=== PATIENT | male | born 1985 | race Caucasian/White ===

== ENCOUNTER 2024-06-30 10:57 | Outpatient (AMB) | payer BC, SELFPAY ==
--- NOTE | 2024-06-30 11:11 | MHC.PC.OV ---
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 Transferring care from Dr John ([facility]). Medical records have been requested and have not received. Revenue Agent Required: No Counseling Center Director: Present Accompanied by: Spouse Allergies No Known Allergies Allergy (Verified 06/30/24 12:54) Medication List - Last Reconciled 07/01/24 by JONATHAN Ramos hydroxyzine pamoate 25 mg PO BID PRN mupirocin 2% 1 appl topical BID nicotine (polacrilex) 4 mg buccal Q2H Tobacco use date assessed: 06/30/24 Dental Screening Dental Screen Date: 06/30/24 Did you have a dental visit in the last 12 months?: Yes Did you have a dental problem in the last 6 months where you did not have access to dental care?: No Was dental information given to patient?: Patient has dentist 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 John ([facility]) Last visit: Last PE: 2022 Specialist: thoracic appt 07/12 ,occupational therapy asst, lisandro, apprenticeship training representative Past medical history: ezcema, HLD, substance use hx, sober for 8 years Medications: hydroxyzine pamoate 25 mg BID in the ER for chest pain (reports that they thought this was anxiety related, they thought it was Family HX: Problem: Patient is a 39 year of who was presenting to establish care The patient reports that he has been having chest pains on and off Reports that on Friday and on Friday he went to [facility] for chest pain Reports that he was diaphoretic in his chest pain was going on for about 10 minutes Reports that his troponin, EKG and all other tests negative for cardiac-related issues Reports that he recently had surgery on bilateral feet, so that prompt them to do a D-dimer which was negative CT of the chest was done and noticed a cyst outside of the right mid-lung and sign of emphysema Reports that he was referred to a thoracic for to assess but he will still need a pulmonology referral to evaluate the potential emphysema Smoker: Reports that he was given nicotine gum and this has been helping him. He does not want to started smoking again due to the issues with his lungs. Reports that the nicotine gum is only 2 mg, he was wondering if he will get the 4 mg because he used to smoke a lot of cigarettes, along with vaping and smoking marijuana. Nicotine gum 4 mg ordered Dry lip: Reports that his labs get dry red and cracked. Reports that he had to see a Dermatology in the past for this who gave him prednisone. Mupirocin ointment was ordered Heartburn: Reports that he always had an issue would heartburn. Reports that it seems random. Reports that it does happen with spicy foods but sometimes it happens and sometime it does not. Reports coffee intake 1-2 cup/day but he has not drink any the last couple of days for concerns that this might be causing his chest pains as well Cyst. Report having cyst removed from cell wall from bilateral feet. Reports that it was infected with staph infection. Reports that he has stitches intact to both feet. And he has been seen by Podiatry for this. Anxiety: Patient reports anxiety. He reports that they told him in the hospital that his chest pain seemed to be anxiety related. There they started him on hydroxyzine 25 mg b.i.d. p.r.n. discussed with patient if he would like to speak to a a therapist, patient reports that he would like to start there. Counseling referral was placed [facility] Medical History (Updated 07/03/24 @ 06:04 by Shaggy Baum MD) Emphysema lung Nicotine dependence HLD (hyperlipidemia) Surgical History History of wisdom tooth extraction History of tonsillectomy History of foot surgery Family History Other Mental health disorder Substance use disorder Social History Housing: Condominium Alcohol intake: current Alcohol intake frequency: a few times a month Patient Tobacco Use Status: Former Tobacco user e-Cigarette/Vaping Use: Former Use Second Hand Smoke Exposure: Yes service: No Current occupational status: employed Current occupation: [employer] Cognitive needs: No Hearing needs: No Vision needs: Yes (Glasses) Questionnaire PHQ-9 Over the last 2 weeks, how often have you been bothered by any of the following problems? 1. Little interest or pleasure in doing things: not at all 2. Feeling down, depressed, or hopeless: several days 3. Trouble falling or staying asleep, or sleeping too much: several days 4. Feeling tired or having little energy: several days 5. Poor appetite or overeating: not at all 6. Feeling bad about yourself - or that you are a failure or have let yourself or your family down: several days 7. Trouble concentrating on things, such as reading the newspaper or watching television: not at all 8. Moving or speaking so slowly that other people could have noticed. Or the opposite - being so fidgety or restless that you have been moving around a lot more than usual: not at all 9. Thoughts that you would be better off or of hurting yourself in some way: not at all Total score: 4 Depression Screening Interpretation: Positive Depression Screening Follow-up: Existing condition and Follow-up Visit Requested Depression Screening Done: Yes 28332 - PHQ-9 Billing: Yes Source: Developed by Drs. Yanick Gudino, Tiff Allen, Toño Bobby and colleagues, with an educational kimmie from [employer]. Thrive Questionnaire Date Thrive assessed: 06/30/24 I am a: Patient What is your living situation today?: I have a steady place to live Within the past 12 months, did the food you bought not last and you didn't have the money to get more?: Never true Within the past 12 months, did you worry whether your food would run out before you got money to buy more?: Never true Do you have trouble paying for medicines?: No Do you have trouble getting transportation to medical appointments?: No Do you have trouble paying your heating and electricity bill?: No Do you have trouble taking care of your child, family member or friend?: No Do you have trouble with day-to-day activities such as bathing, preparing meals, shopping, managing finances, etc.?: No Are you currently unemployed and looking for a job?: No Are you interested in more education?: No Please select the resources that you would like help with: None Currently or been in a relationship where the following occur: No concerns reported THRIVE Score: 0 AUDIT C Alcohol Use Questionnaire (AUDIT-C) 1. How often do you have a drink containing alcohol?: Monthly or less 2. How many drinks containing alcohol do you have on a typical day when you are drinking?: 1 or 2 3. How often do you have six or more drinks on one occasion?: Less than monthly Total Score: 2 Score Reviewed/Action Taken: Yes NATALIA-7 AMB Questionnaire NATALIA-7 Date NATALIA - 7 assessed: 06/30/24 Feeling nervous, anxious, or on edge: 2 = More than half the days Not being able to stop or control worryin = Several days Worrying too much about different things: 1 = Several days Trouble relaxin = Several days Being so restless that it is hard to sit still: 1 = Several days Becoming easily annoyed or irritable: 1 = Several days Feeling afraid as if something awful might happen: 1 = Several days Total NATALIA-7 score (0-4 normal; 5-9 mild; 10-14 moderate; 15-21 severe): 8 Source: Developed by Drs. Yanick Gudino, Tiff Allen, Toño Bobby and colleagues, with an educational kimmie from [employer]. NATALIA-7 Assessment Billing NATALIA-7 Assessment Tool: NATALIA-7 Assessment 68790 Review of Systems Const Details: Denies chills, Denies fatigue, Denies fever(s), Denies headache(s) and Denies weakness HEENT Denies change in vision, Denies dizziness, Denies headache(s), Denies hearing loss, Denies nasal congestion, Denies sinus pain, Denies sinus pressure and Denies sore throat other: dry reddened, crack lips, Card recurrent chest pain, Denies lightheadedness, ocassional dyspnea (seems like it related to anxiety), intermittent palpitations Resp Denies cough, Denies dyspnea and Denies wheezing GI Denies abdominal pain, Denies melena, Denies hematochezia, Denies change in bowel habits, Denies dyspepsia and Denies nausea recurrent abdominal pain and heartburn Denies hematuria and Denies dysuria Musc Denies abnormal gait, Denies myalgias, Denies arthralgias, Denies numbness and Denies tingling bilateral feet infected cys-post surgerical removal (sutures intact) f/b Podiatry Skin/Breast Denies rash, Denies unusual bruising and Denies wounds Neuro Denies abnormal gait, Denies dizziness, Denies headache(s), Denies memory loss, Denies numbness, Denies Sensory deficit (Neuro), Denies tingling and Denies weakness Psych reports anxiety, Denies depression and Denies memory loss Endo Denies cold intolerance, Denies fatigue, Denies heat intolerance, Denies polydipsia and Denies polyuria Ollie/Lymph Denies easy bleeding and Denies easy bruising Aller/Immun Denies wheezing Physical exam (Primary Care) Vital Signs: Last Vital Signs Temp 97.1 F 06/30/24 11:12 Pulse 71 06/30/24 11:12 BP 120/70 06/30/24 11:12 Pulse Ox 99 06/30/24 11:12 Oxygen Delivery Method Room Air 06/30/24 11:12 BMI result Body Mass Index 24.0 Tobacco/Smoking Status: Tobacco use Status Tobacco use date assessed 06/30/24 06/30/24 11:23 Patient Tobacco Use Status Former Tobacco user 06/30/24 11:24 e-Cigarette/Vaping Use Former Use 06/30/24 11:24 PHQ-9: PHQ-9 Score PHQ-9: Total score 4 07/01/24 01:53 Depression Screening Interpretation: Positive Depression Screening Follow-up: Existing condition and Follow-up Visit Requested Thrive Assessment: Date of Thrive Assessment Date Thrive assessed 06/30/24 06/30/24 11:23 Currently or been in a relationship where the following occur: No concerns reported Const Other: General: no acute distress, well developed, alert and awake Nutritional Appearance: well nourished Orientation/consciousness: patient oriented x3 HENMT Head: Yes normocephalic and Yes atraumatic Ears: hearing grossly normal bilaterally and TM's normal bilaterally General nose exam: Normal external nose present and Normal nares present Mouth: Normal oral and palatal mucosa present and dry mucous membranes other: cracked, erythema lips Eyes Pupils: Equal, round and reactive pupils present and Pupil accommodation reflex normal EOM: EOMs intact bilaterally Neck Neck: Yes normal visual inspection, Yes no lymphadenopathy and Yes trachea midline Thyroid: Thyroid normal Carotids: no bruits Lymphatic: no lymphadenopathy noted Chest Chest palpation & inspection: normal inspection of the chest Resp Effort & Inspection: normal respiratory effort Auscultation: clear to auscultation bilaterally Cardio Rate: regular rate Rhythm: regular rhythm Heart sounds: S1 normal heart sound present, S2 normal heart sound present, no gallops, no murmurs and no rubs Bruits: no abdominal aortic bruits and no carotid bruits GI Palpation (GI): abdomen soft and nontender to palpation Auscultation: normal bowel sounds General: Yes no CVA tenderness Back/Spine/Pelvis Back: no CVA tenderness Cervical Spine: cervical ROM normal and No Cervical spine tenderness Thoracic/Lumbar Spine: thoraco-lumbar ROM normal, No pain with thoraco-lumbar ROM, No thoracic spinal tenderness and No lumbar spinal tenderness Skin General: warm and dry. Normal skin color. Normal skin turgor Lesions: no lesions Rashes: no rashes Trauma: no lacerations or abrasions Wounds: no wounds Nails: normal Neuro General: patient oriented x3, gait normal and CN's II-XI intact bilaterally Cranial nerves: Yes Equal, round and reactive pupils present Cognition (Neuro): normal cognition Gait exam (Neuro): Normal gait present Motor exam (neuro): 5/5 motor strength present throughout Sensory Exam: No Sensory deficit (Neuro) Deep tendon reflexes (DTR's): Right patellar reflex intensity grade: 2+ and Left patellar reflex intensity grade: 2+ Extrem General: Yes normal to inspection, No edema and No calf tenderness other: cyst moved from cell wall on bilateral feet, s/p staph infection,stitches on both feet intact Psych Appearance: grossly normal Affect: normal affect Attitude: cooperative Thought process: Normal thought process present Coding Level of Care Code New Pt Level 4 (12343) Diagnoses Chest pain, unspecified type R07.9 Chest pain type: unspecified Pulmonary emphysema, unspecified emphysema type J43.9 Emphysema type: unspecified Lung cyst J98.4 Bone cyst of both feet M85.571; M85.572 Lip dryness K13.0 Anxiety F41.9 Cigarette nicotine dependence with nicotine-induced disorder F17.219 Nicotine product type: cigarettes Substance use status: unspecified nicotine-induced disorder Additional Codes NATALIA-7 Assessment Billing - NATALIA-7 Assessment Tool: NATALIA-7 Assessment [id number] ([id number]) PHQ-9 - 56231 - PHQ-9 Billing: Yes ([id number]) Time Spent (min) 45 Assessment & Plan Assessment & Plan (1) Chest pain: Code(s): R07.9 - Chest pain, unspecified Category: Medical Qualifiers: Chest pain type: unspecified Qualified Code(s): R07.9 - Chest pain, unspecified Plan: The patient reports that he has been having chest pains on and off Reports that on Friday and on Friday he went to [facility] for chest pain Reports that he was diaphoretic in his chest pain was going on for about 10 minutes Reports that his troponin, EKG and all other tests negative for cardiac-related issues Cardiology referral placed (2) Emphysema lung: Code(s): J43.9 - Emphysema, unspecified Category: Medical Qualifiers: Emphysema type: unspecified Qualified Code(s): J43.9 - Emphysema, unspecified Plan: CT of the chest was done and noticed a cyst outside of the right mid-lung and sign of emphysema Reports that he was referred to a thoracic for to assess but he will still need a pulmonology referral to evaluate the potential emphysema (3) Lung cyst: Code(s): J98.4 - Other disorders of lung Category: Medical Plan: Follow up with thoracic as scheduled (4) Bone cyst of both feet: Code(s): 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 p.r.n. Denies HI/SI Counseling referral placed (7) Nicotine dependence: Code(s): F17.200 - Nicotine dependence, unspecified, uncomplicated Category: Medical Qualifiers: Nicotine product type: cigarettes Substance use status: unspecified nicotine-induced disorder Qualified Code(s): F17.219 - Nicotine dependence, cigarettes, with unspecified nicotine-induced disorders Plan: Reports that he was given nicotine gum and this has been helping him. He does not want to started smoking again due to the issues with his lungs. Reports that the nicotine gum is only 2 mg, he was wondering if he will get the 4 mg because he used to smoke a lot of cigarettes, along with vaping and smoking marijuana. Nicotine gum 4 mg ordered Plan To return in 2 weeks for his annual physical examination Orders: Orders Comprehensive [place]. Panel Fast 06/30/24 E78.5 - Hyperlipidemia, unspecified, Z00.00 - Encounter for general adult medical examination without abnormal findings Vitamin D 25-OH Total 06/30/24 E78.5 - Hyperlipidemia, unspecified, Z00.00 - Encounter for general adult medical examination without abnormal findings Lipid Panel 06/30/24 E78.5 - Hyperlipidemia, unspecified, Z00.00 - Encounter for general adult medical examination without abnormal findings Complete Blood Count Auto Diff 06/30/24 E78.5 - Hyperlipidemia, unspecified, Z00.00 - Encounter for general adult medical examination without abnormal findings TSH reflex Free T4 06/30/24 E78.5 - Hyperlipidemia, unspecified, Z00.00 - Encounter for general adult medical examination without abnormal findings UA CC w/rflx Micro + Cult 06/30/24 E78.5 - Hyperlipidemia, unspecified, Z00.00 - Encounter for general adult medical examination without abnormal findings Glucose Fasting 06/30/24 E78.5 - Hyperlipidemia, unspecified, Z00.00 - Encounter for general adult medical examination without abnormal findings Referrals Pulmonology Referral J43.9 - Emphysema, unspecified Cardiology Referral R07.9 - Chest pain, unspecified Counseling Referral F41.9 - Anxiety disorder, unspecified Medications: New mupirocin 2% applied to lips 1 appl topical BID 22 grams 0RF nicotine (polacrilex) 4 mg buccal Q2H 100 ea 3RF
[2024-06-30 11:12] VITALS: BP 120/70; PULSE 71; TEMP 36.2; O2SAT 99; BMI 24.0
--- OUTSIDE RECORDS SUMMARY | 2024-06-30 12:47 | XMS_ITS | Clinical Summary ---
Author Organization [facility] Address [address] [place] [address] Phone Care Team Providers Care Grill Cook Name Role Phone Physician, Pcp Unknown Primary Care Provider Kaylin vailable Allergies Active Allergy Reactions Criticality Noted Date Comments Nickel 05/18/2020 Other Reaction(s): Rash/Dermatitis silver Medications lactulose (CHRONULAC) solution Take 30 mL by mouth 2 times daily. 3 Active psyllium (Daily Fiber, psyllium-aspart ,) 3.4 gram packet Take 1 Packet by mouth daily. 3 Active polyethylene glycol (MIRALAX) 17 gram packet Take 1 Packet by mouth daily. 3 Active simethicone (MYLICON) 125 mg chewable tablet Take 1 Tablet by mouth every 6 hours as needed for Flatulence. 3 Active polyethylene glycol (MIRALAX) 17 gram packet Take 1 Packet by mouth daily as needed (constipation) . 3 Active hydrOXYzine pamoate (VISTARIL) 25 mg capsule Take 1 capsule (25 mg total) by mouth every 6 (six) hours if needed for anxiety. 20 capsule 5 Active nicotine polacrilex (NICORETTE) [address] 1 each (2 mg total) into mouth between cheek and gum every 2 (two) hours if needed for smoking cessation for up to 4 days. 48 each 5 07/02/19 25 Active Active Problems Problem Noted Date Diagnosed Date Hyperlipidemia LDL goal <160 05/18/2024 Erectile dysfunction 09/24/2022 Herpes simplex type 1 infection 08/05/2018 Eczema 07/14/2018 History of drug abuse in remission 07/14/2018 Overview (05/18/2024): Clean & sober since February 2016. 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 Encounters Date Type Department Care Team Description 06/28/2024 1:23 PM EST - 06/28/2024 7:13 PM [facility] Emergency [address] [place] [phone] Chest pain, unspecified type (Primary Dx) Discharge Disposition: Home or Self Care 06/26/2024 7:29 PM EST - 06/26/2024 11:08 PM [facility] Emergency [address] [place] [phone] Discharge Disposition: Home or Self Care from Last 3 Months Immunizations Name Administration Dates Next Due Hep B, Unspecified 10/10/2011 Tdap Tetanus diptheria acell ular pertussis (Boostrix; Adacel) 7yo and older 10/23/2015 Surgical History Surgery Date Site/Laterality Comments TONSILLECTOMY 2007 Bilateral PROCEDURE: HISTORICAL TONSILLECTOMY WISDOM TOOTH EXTRACTION 1999 Bilateral PROCEDURE: HISTORICAL WISDOM TEETH EXTRACTION Medical History Medical History Date Comments Eczema 07/14/2018 DX:Eczema Herpes simplex type 1 infection 08/05/2018 DX:Herpes simplex type 1 infection History of drug abuse in rem ission ([facility]) 07/14/2018 DX:History of drug abuse in remission ([facility]); COMMENT: Clean & sober since February 2016. 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 Testing was negative for underlying seizure disorder Tobacco use 08/05/2018 DX:Tobacco use Hyperlipidemia LDL goal <160 DX: Hyperlipidemia LDL goal <160 Abdominal pain DX:Abdominal dilia n Constipation DX:Constipation Straining with stools DX:Straini ng with stools Family History Medical History Relation Name Comments Hypertension Father eczema No Known Problems Maternal Grandfather No Known Problems Maternal Grandmother Asthma Mother No Known Problems Paternal Grandfather Alcohol abuse Paternal Grandmother No Known Problems Sister Relation Name Status Comments Father Alive Maternal Grandfather Maternal Grandmother Alive Mother Alive Paternal Grandfather Paternal Grandmother Sister Alive Social History Tobacco Use Types Packs/Day Years Used Date Smoking Tobacco: Every Day Cigarettes 0.8 25.1 Started: 05/19/1999 Smokeless Tobacco: Never Alcohol Use Standard Drinks/Week Comments No 0 (1 standard drink = 0.6 oz pur e alcohol) Sex and Gender Information Value Date Recorded Sex Assigned at Male 06/28/2024 3:40 PM EST Legal Sex Male 3:18 AM EST Gender Identity Male 06/28/2024 3:40 PM EST Sexual Orientation Straight 06/28/2024 3: 40 PM EST Obstetrics History Last Filed Vital Signs Vital Sign Reading Time Taken Comments Blood Pressure 139/84 06/28/2024 6:07 PM EST Pulse 89 06/28/2024 6:50 PM EST Temperature 37.3 ??C (99.1 ??F) 06/28/2024 4:04 PM ES T Respiratory Rate 16 06/28/2024 6:07 PM EST Oxygen Saturation 100% 06/28/2024 6:50 PM EST Inhaled Oxygen Concentration - - Weight 83.9 kg (185 lb) 06/28/2024 12:31 PM EST Height 180.3 cm (5' 11 ) 06/28/2024 12:31 PM EST Body Mass Index 25.8 06/28/2024 12:31 PM EST Plan of Treatment Upcoming Encounters Date Type Department Care Team (Late st Contact Info) Description 07/12/2024 1:30 PM EST Consult Thoracic Surgery - [place] [address] [facility] [address] [place] [phone] Estrella Galvan MD [address] [facility] [address] [place] [phone] Health Maintenance Due Date Last Done Comments Pneumococcal Vaccine: Pediat rics (0 to 5 Years) and At-Risk Patients (6 to 64 Years) (1 of 2 - PCV) 02/21/2004 Hepatitis B Vaccines (2 of 3 - 19+ 3-dose series) 11/07/2011 10/10/2011 DTaP,Tdap,and Td Vaccines (2 - Td or Tdap) 11/20/2015 10/23/2015 Depression Screening 04/21/2022 Social Influencers of Health Screening 04/21/2022 COVID-19 Vaccine (1 - 2023-2 5 season) 2024 Influenza Vaccine (#1) 2024 Cholesterol Screening (Lipid Panel) 09/21/2027 09/20/2022 HIV Screening Completed 09/20/2022 Hepatitis C Screening Completed 09/20/2022 HIB Vaccines Aged Out No longer eligi ble based on patient's age to complete this topic HPV Vaccines Aged Out No longer eligi ble based on patient's age to complete this topic Hepatitis A Vaccines Aged Out No long er eligible based on patient's age to complete this topic IPV Vaccines Aged Out No longer eligi ble based on patient's age to complete this topic MMR Vaccines Aged Out No longer eligi ble based on patient's age to complete this topic Meningococcal ACWY Vaccine Aged Out N o longer eligible based on patient's age to complete this topic Meningococcal B Vacine Aged Out No lo nger eligible based on patient's age to complete this topic RSV Immunization Patients Un viktoria 20 months Aged Out No longer eligible b ased on patient's age to complete this topic Varicella Vaccines Aged Out No longer eligible based on patient's age to complete this topic Procedures Procedure Name Priority Date/Time Associated Diagnosis Comments ECG ANNOTATED 06/30/2024 ECG ANNOTATED 06/30/2024 CT ANGIO CHEST WO AND/OR W CONTRAST STAT 06/28/2024 5:45 PM EST Chest pain, unspecified type TROPONIN I HIGH SENSITIVITY STAT 06/28/2024 2:43 PM EST ECG 12-LEAD STAT 06/28/2024 2:40 PM EST CBC WITH AUTO DIFFERENTIAL STAT 06/28/2024 1:36 PM EST B-TYPE NATRIURETIC PEPTIDE STAT 06/28/2024 1:36 PM EST MAGNESIUM STAT 06/28/2024 1:36 PM EST LIPASE STAT 06/28/2024 1:36 PM EST COMPREHENSIVE METABOLIC PANEL STAT 06/28/2024 1:36 PM EST CBC AND DIFFERENTIAL STAT 06/28/2024 1:36 PM EST TROPONIN I HIGH SENSITIVITY STAT 06/28/2024 1:36 PM EST ECG 12-LEAD STAT 06/28/2024 12:27 PM EST TROPONIN I HIGH SENSITIVITY STAT 06/26/2024 9:43 PM EST ECG 12-LEAD STAT 06/26/2024 9:36 PM EST XR CHEST 2 VIEWS STAT 06/26/2024 8:00 PM EST CBC WITH AUTO DIFFERENTIAL STAT 06/26/2024 7:56 PM EST D-DIMER STAT 06/26/2024 7:56 PM EST B-TYPE NATRIURETIC PEPTIDE STAT 06/26/2024 7:56 PM EST MAGNESIUM STAT 06/26/2024 7:56 PM EST LIPASE STAT 06/26/2024 7:56 PM EST COMPREHENSIVE METABOLIC PANEL STAT 06/26/2024 7:56 PM EST CBC AND DIFFERENTIAL STAT 06/26/2024 7:56 PM EST TROPONIN I HIGH SENSITIVITY STAT 06/26/2024 7:56 PM EST ECG 12-LEAD STAT 06/26/2024 7:45 PM EST HM HEPATITIS C SCREENING Routine 09/20/2022 HM HIV SCREENING Routine 09/20/2022 LIPID PANEL Routine 09/20/2022 from Last 3 Months or Most Recently Relevant to Health Maintenance Results * ECG-Annotated (06/30/2024) Only the most recent of2 resultswithin the time period is included. us Provider Onbase MD ECG ORDERABLES Final Result * CT Angio Chest wo and/or w Contrast (06/28/2024 5:45 PM EST) Anatomical Region Laterality Modality Body Computed Tomogra phy 06/28/2024 6:21 PM EST Impressions 06/28/2024 6:21 PM EST Impression: Normal CTA angiography of the aorta. NEGATIVE for pulmonary embolus. There is paraseptal pulmonary emphysema. No infiltrates or abnormal alveolar opacities. No pneumothorax. This document has been electronically signed by: Pepito Srivastava MD on 06/28/2024 18:21:17 Narrative 06/28/2024 6:21 PM EST INDICATION: chest pain, dyspnea, elevated ddimer CTA angiography chest using bolus contrast injection. 3-D postprocessing Comparison: None Findings: Normal thoracic aorta and branch vessels Heart size is normal. RV/LV ratio normal There is a 2.4 cm cyst in the pleural surface of the medial right lung and also paraseptal areas of emphysema are present in the medial aspect of the lingula. No consolidation or abnormal alveolar opacities. Below the diaphragm the visualized portions of liver and spleen are unremarkable. No acute fractures Procedure Note Pepito Srivastava MD - 06/28/2024 INDICATION: chest pain, dyspnea, elevated ddimer CTA angiography chest using bolus contrast injection. 3-D postprocessing Comparison: None Findings: Normal thoracic aorta and branch vessels Heart size is normal. RV/LV ratio normal There is a 2.4 cm cyst in the pleural surface of the medial right lungand also paraseptal areas of emphysema are present in the medial aspect ofthe lingula. No consolidation or abnormal alveolar opacities. Below the diaphragm the visualized portions of liver and spleen are unremarkable. No acute fractures IMPRESSION: Impression: Normal CTA angiography of the aorta. NEGATIVE for pulmonary embolus. There is paraseptal pulmonary emphysema. No infiltrates or abnormal alveolar opacities. No pneumothorax. This document has been electronically signed by: Pepito Srivastava MD on 06/28/2024 18:21:17 us Jacques PALMA IMG CT PROCEDURES Final Resu lt * Troponin I high sensitivity (06/28/2024 2:43 PM EST) Only the most recent of4 resultswithin the time period is included. [facility] High Sensitivity Troponin I 4 <=79 ng/L LAB CHEMISTRY METHOD 06/28/2024 3:53 PM EST [facility] Blood Venous blood specimen / Unknown Venipuncture / Unknown 06/28/2024 2:43 PM EST 06/28/2024 3:10 PM EST Narrative [facility] - 06/28/2024 3:53 PM EST High levels of biotin in samples may falsely decrease hsTroponin values. ??Use caution when interpreting hsTroponin results in patients taking biotin who exhibit renal impairment (eGFR <60) or in patients taking more than 20 mg/day of biotin. Chu Small MD LAB BLOOD ORDERABLES Chiquita l Result [facility] [address] [place] [address], * ECG 12 lead (06/28/2024 2:40 PM EST) Only the most recent of4 resultswithin the time period is included. [facility] Ventricular Rate ECG 63 BPM GEMUSE Atrial Rate 63 BPM GEMUSE P-R Interval 134 ms GEMUSE QRS Duration 94 ms GEMUSE Q-T Interval 408 ms GEMUSE QTc 417 ms GEMUSE P Wave [place] 50 degrees GEMUSE R [place] 77 degrees GEMUSE T [place] 50 degrees GEMUSE ECG Interpretation Normal sinus rhythm Normal ECG When compared with ECG of 28-JUN-2024 12:27, (unconfirmed) No significant change was found Confirmed by Diogo HAYWOOD JAMES ([id number]) on 06/28/2024 6:39:11 PM GEMUSE 06/28/2024 2:40 PM EST 06/28/2024 6:39 PM EST us Chu Small MD ECG ORDERABLES Final Res ult GEMUSE * (ABNORMAL) CBC auto differential (06/28/2024 1:36 PM EST) Only the most recent of2 resultswithin the time period is included. WBC 8.3 4.8 - 10.8 K/mcL LAB HEMETOLOGY METHOD 06/28/2024 2:41 PM [facility] RBC 5.00 4.50 - 5.50 M/mcL LAB HEMETOLOGY METHOD 06/28/2024 2:41 PM [facility] Hemoglobin 15.6 13.5 - 17.5 g/dL LAB HEMETOLOGY METHOD 06/28/2024 2:41 PM [facility] Hematocrit 45.4 42.0 - 54.0 % LAB HEMETOLOGY METHOD 06/28/2024 2:41 PM [facility] MCV 90.1 79.0 - 98.0 FL LAB HEMETOLOGY METHOD 06/28/2024 2:41 PM [facility] MCH 31.0 27.0 - 32.0 pcg LAB HEMETOLOGY METHOD 06/28/2024 2:41 PM [facility] MCHC 34.4 32.0 - 37.0 g/dL LAB HEMETOLOGY METHOD 06/28/2024 2:41 PM [facility] RDW 12.3 11.0 - 15.0 % LAB HEMETOLOGY METHOD 06/28/2024 2:41 PM [facility] Platelets 235 130 - 400 K/mcL LAB HEMETOLOGY METHOD 06/28/2024 2:41 PM [facility] MPV 11.5(H) 7.0 - 11.0 FL LAB HEMETOLOGY METHOD 06/28/2024 2:41 PM [facility] NRBC 0.0 <1.0 % LAB HEMETOLOGY METHOD 06/28/2024 2:41 PM [facility] NRBC Absolute 0.00 <0.10 K/mcL LAB HEMETOLOGY METHOD 06/28/2024 2:41 PM [facility] Neutrophils Relative 75.6 % LAB HEMETOLOGY METHOD 06/28/2024 2:41 PM [facility] Lymphocytes Relative 17.4 % LAB HEMETOLOGY METHOD 06/28/2024 2:41 PM [facility] Monocytes Relative 5.6 % LAB HEMETOLOGY METHOD 06/28/2024 2:41 PM [facility] Eosinophils Relative 0.4 % LAB HEMETOLOGY METHOD 06/28/2024 2:41 PM [facility] Basophils Relative 0.6 % LAB HEMETOLOGY METHOD 06/28/2024 2:41 PM [facility] Immature Granulocytes Relative 0.4 % LAB HEMETOLOGY METHOD 06/28/2024 2:41 PM [facility] Neutrophils Absolute 6.26 1.50 - 7.00 K/mcL LAB HEMETOLOGY METHOD 06/28/2024 2:41 PM [facility] Lymphocytes Absolute 1.44 1.00 - 5.00 K/mcL LAB HEMETOLOGY METHOD 06/28/2024 2:41 PM [facility] Monocytes Absolute 0.46 0.20 - 1.00 K/mcL LAB HEMETOLOGY METHOD 06/28/2024 2:41 PM [facility] Eosinophils Absolute 0.03 0.00 - 0.50 K/mcL LAB HEMETOLOGY METHOD 06/28/2024 2:41 PM [facility] Basophils Absolute 0.05 0.00 - 0.20 K/mcL LAB HEMETOLOGY METHOD 06/28/2024 2:41 PM EST [facility] Immature Granulocytes Absolute 0.03 0.00 - 0.03 K/mcL LAB HEMETOLOGY METHOD 06/28/2024 2:41 PM EST [facility] Blood Venous blood specimen / Unknown Venipuncture / Unknown 06/28/2024 1:36 PM EST 06/28/2024 2:04 PM EST us Chu Small MD LAB BLOOD ORDERABLES Chiquita l Result Performing Organization Address [facility] Co de Phone Number [facility] [address] [place] [address], [place] [phone] * B-type natriuretic peptide (06/28/2024 1:36 PM EST) Only the most recent of2 resultswithin the time period is included. BNP <2 <=100 pcg/mL LAB CHEMISTRY METHOD 06/28/2024 2:50 PM EST [facility] Blood Venous blood specimen / Unknown Venipuncture / Unknown 06/28/2024 1:36 PM EST 06/28/2024 2:04 PM EST Chu Small MD LAB BLOOD ORDERABLES Chiquita l Result Performing Organization Address [facility] Co de Phone Number [facility] [address] [place] [address], [place] [phone] * Magnesium (06/28/2024 1:36 PM EST) Only the most recent of2 resultswithin the time period is included. Magnesium 2.2 1.9 - 2.6 mg/dL LAB CHEMISTRY METHOD 06/28/2024 2:58 PM EST [facility] Comment:Hemolysis present Blood Venous blood specimen / Unknown Venipuncture / Unknown 06/28/2024 1:36 PM EST 06/28/2024 2:04 PM EST us Chu Small MD LAB BLOOD ORDERABLES Chiquita l Result Performing Organization Address [facility]/ZIP Co de Phone Number [facility] [address] [place] [address], [place] [phone] * Lipase (06/28/2024 1:36 PM EST) Only the most recent of2 resultswithin the time period is included. Pathologist [facility] [place] Lipase 41 13 - 75 unit/L LAB CHEMISTRY METHOD 06/28/2024 2:58 PM [facility] Blood Venous blood specimen / Unknown Venipuncture / Unknown 06/28/2024 1:36 PM EST 06/28/2024 2:04 PM EST us Chu Small MD LAB BLOOD ORDERABLES Chiquita l Result Performing Organization Address [facility] de Phone Number [facility] [address] [place] [address], [place] [phone] * (ABNORMAL) Comprehensive metabolic panel (06/28/2024 1:36 PM EST) Only the most recent of2 resultswithin the time period is included. Pathologist [facility] [place] Sodium 136 133 - 145 mmol/L LAB CHEMISTRY METHOD 06/28/2024 2:58 PM [facility] Potassium 4.2 3.5 - 5.5 mmol/L LAB CHEMISTRY METHOD 06/28/2024 2:58 PM [facility] Comment:Hemolysis present Chloride 102 96 - 110 mmol/L LAB CHEMISTRY METHOD 06/28/2024 2:58 PM [facility] CO2 25 21 - 32 mmol/L LAB CHEMISTRY METHOD 06/28/2024 2:58 PM [facility] Anion Gap 9 3 - 11 LAB CHEMISTRY METHOD 06/28/2024 2:58 PM [facility] Glucose 85 70 - 100 mg/dL LAB CHEMISTRY METHOD 06/28/2024 2:58 PM [facility] BUN 12 5 - 25 mg/dL LAB CHEMISTRY METHOD 06/28/2024 2:58 PM [facility] Creatinine 0.94 0.70 - 1.30 mg/dL LAB CHEMISTRY METHOD 06/28/2024 2:58 PM [facility] eGFR 106 >=60 mL/min/1. 73m2 LAB CHEMISTRY METHOD 06/28/2024 2:58 PM [facility] Comment:Calculation based on the??Chronic Kidney Disease Epidemiology Collaboration (CKD-EPI) equation refit??without adjustment for race. BUN/Creatinine Ratio 12.8 LAB CHEMISTRY METHOD 06/28/2024 2:58 PM [facility] Calcium 10.3 8.5 - 10.5 mg/dL LAB CHEMISTRY METHOD 06/28/2024 2:58 PM [facility] AST (SGOT) 25 10 - 42 unit/L LAB CHEMISTRY METHOD 06/28/2024 2:58 PM [facility] Comment:Hemolysis present ALT (SGPT) 41 10 - 60 unit/L LAB CHEMISTRY METHOD 06/28/2024 2:58 PM [facility] Alkaline Phosphatase 86 42 - 121 unit/L LAB CHEMISTRY METHOD 06/28/2024 2:58 PM [facility] Total Protein 8.3(H) 6.0 - 8.0 g/dL LAB CHEMISTRY METHOD 06/28/2024 2:58 PM [facility] Albumin 4.9 3.2 - 5.0 g/dL LAB CHEMISTRY METHOD 06/28/2024 2:58 PM [facility] Total Bilirubin 0.8 0.0 - 1.4 mg/dL LAB CHEMISTRY METHOD 06/28/2024 2:58 PM [facility] Blood Venous blood specimen / Unknown Venipuncture / Unknown 06/28/2024 1:36 PM EST 06/28/2024 2:04 PM EST us Chu Small MD LAB BLOOD ORDERABLES Chiquita l Result [facility] [address] [place] [address], [place] [phone] * XR Chest 2 Views (06/26/2024 8:00 PM EST) Anatomical Region Laterality Modality Body Radiographic Jeannette ging 06/27/2024 7:17 AM EST Impressions 06/27/2024 7:18 AM EST Hyperinflated lungs without acute process. No change from last exam 07/28/2022 -------- FINAL REPORT -------- Dictated By: Hemant Chan Dictated Date: 06/27/2024 07:17 ET Assigned Physician: Hemant Chan Reviewed and Electronically Signed By: Hemant Chan Signed Date: 06/27/2024 07:18 ET Workstation ID: [id number] Transcribed By: Self Edit Transcribed Date: 06/27/2024 07:17 ET Narrative 06/27/2024 7:18 AM EST Examination: Chest 2 views. CLINICAL INDICATION: Chest pain. COMPARISON: Chest 07/28/2022. FINDINGS: The lungs are slightly hyperinflated but clear of acute pneumonic process. The heart size and vascularity is normal. No gross bony abnormality seen. Procedure Note Hemant Chan MD - 06/27/2024 Examination: Chest 2 views. CLINICAL INDICATION: Chest pain. COMPARISON: Chest 07/28/2022. FINDINGS: The lungs are slightly hyperinflated but clear of acutepneumonic process. The heart size and vascularity is normal. No gross bonyabnormality seen. IMPRESSION: Hyperinflated lungs without acute process. No change from last exam07/28/2022 -------- FINAL REPORT -------- Dictated By: Hemant Chan Dictated Date: 06/27/2024 07:17 ET Assigned Physician: Hemant Chan Reviewed and Electronically Signed By: Hemant Chan Signed Date: 06/27/2024 07:18 ET Workstation ID: [id number] Transcribed By: Self Edit Transcribed Date: 06/27/2024 07:17 ET Mariam Lamont Jd Woo DO IMG XR PROCEDURES Final R esult * (ABNORMAL) D-dimer, quantitative (06/26/2024 7:56 PM EST) [facility] D-Dimer, Quant (D-DU) 252(H) <=230 ng/mL DDU LAB COAGULATION METHOD 06/26/2024 8:53 PM EST [facility] Blood Venous blood specimen / Unknown Venipuncture / Unknown 06/26/2024 7:56 PM EST 06/26/2024 8:30 PM EST Narrative [facility] - 06/26/2024 8:53 PM EST D-Dimer <230 ng/mL (D-Dimer units) is the threshold for exclusion of DVT/PE. D-Dimer may be elevated in: Critically ill, severely infected, trauma patients, DIC, acute CVA, acute RI, unstable angina, AF, old age, , and smoking. D-Dimer may be decreased with: Initiation of heparin therapy and oral anticoagulants. Mariam Woo DO LAB BLOOD ORDERABLES Chiquita l Result [facility] [address] [place] [address], [place] [phone] * HIV Screening (09/20/2022) [facility] HIV Screening abstracted Historical Provider HEALTH MAINTENANCE Final Result * Hepatitis C Screening (09/20/2022) [facility] Hepatitis C Screening abstracted Historical Provider HEALTH MAINTENANCE Final Result * (ABNORMAL) Lipid panel (09/20/2022) [facility] LDL/HDL Ratio 4 0 - 4 Triglycerides 95 0 - 150 mg/dL Cholesterol 248(A) 0 - 200 mg/dL HDL 57 >=40 mg/dL LDL Cholesterol 172(A) 0 - 100 mg/dL Blood Venous blood specimen / Unknown Historical Provider LAB BLOOD ORDERABLES Chiquita l Result from Last 3 Months or Most Recently Relevant to Health Maintenance Insurance [facility]) Care Teams Grill Cook Relationship Specialty Start Date End Date Physician, Pcp Unknown PCP - General 06/28/24
--- OUTSIDE RECORDS SUMMARY | 2024-06-30 12:47 | XMS_ITS | Encounter Summary ---
Author Organization [facility] Address [address] [place] [address] Care Team Providers Care Material Carrier Name Role Phone Unavailable Primary Care Provider Unavailabl e Reason for Visit * Reason Comments Chest Pain X2 MONTHS Encounter Details Date Type Department Care Team (Late st Contact Info) Description 06/26/2024 7:29 PM EST - 06/26/2024 11:08 PM EST Emergency [facility] Emergency [address] [place] [address] Discharge Disposition: Home or Self Care Social History Tobacco Use Types Packs/Day Years [...] Orientation Straight 06/28/2024 3: 40 PM EST documented as of this encounter Last Filed Vital Signs Vital Sign Reading Time Taken Comments Blood Pressure 136/83 06/26/2024 7:48 PM EST Pulse 71 06/26/2024 7:48 PM EST Temperature 37.2 ??C (99 ??F) 06/26/2024 7:48 PM EST Respiratory Rate 18 06/26/2024 7:48 PM EST Oxygen Saturation 99% 06/26/2024 7:48 PM EST Inhaled Oxygen Concentration - - Weight 83.9 kg (185 lb) 06/26/2024 7:48 PM EST Height 180.3 cm (5' 11 ) 06/26/2024 7:48 PM EST Body Mass Index 25.8 06/26/2024 7:48 PM EST documented in this encounter Medications at Time of Discharge lactulose (CHRONULAC) solution Take 30 mL by mouth 2 times daily. 03/04/2023 polyethylene glycol (MIRALAX) 17 gram packet Take 1 Packet by mouth daily. 03/04/2023 polyethylene glycol (MIRALAX) 17 gram packet Take 1 Packet by mouth daily as needed (constipation ). 07/29/2022 psyllium (Daily Fiber, psyllium-aspart,) 3.4 gram packet Take 1 Packet by mouth daily. 03/04/2023 simethicone (MYLICON) 125 mg chewable tablet Take 1 Tablet by mouth every 6 hours as needed for Flatulence. 03/04/2023 documented as of this encounter Discharge Disposition Disposition Code Departure Means Destination Home or Self Care documented in this encounter Progress Notes * Karyn Grey RN - 06/26/2024 7:45 PM EST Pt to ED for Chest pain. Had cyst in foot removed surgically 2 weeks ago. Since having the procedure pt has been having intermittent chest pain. When having episodes of chest pain pt becomes diaphoretic and lightheaded. Pt on HLD meds years ago but has since stopped taking them. documented in this encounter Plan of Treatment Upcoming Encounters Date Type Department Care Team (Late st Contact Info) Description 07/12/2024 1:30 PM EST Consult Thoracic Surgery - [place] [address] [place] [id number] Estrella Galvan MD [address] [place] [address] [place] [id number] documented as of this encounter Procedures Procedure Name Priority Date/Time Associated Diagnosis Comments TROPONIN I HIGH SENSITIVITY STAT 06/26/2024 9:43 PM EST ECG 12-LEAD STAT 06/26/2024 9:36 PM EST XR CHEST 2 VIEWS STAT 06/26/2024 8:00 PM EST TROPONIN I HIGH SENSITIVITY STAT 06/26/2024 7:56 PM EST CBC WITH AUTO DIFFERENTIAL STAT 06/26/2024 7:56 PM EST D-DIMER STAT 06/26/2024 7:56 PM EST CBC AND DIFFERENTIAL STAT 06/26/2024 7:56 PM EST B-TYPE NATRIURETIC PEPTIDE STAT 06/26/2024 7:56 PM EST MAGNESIUM STAT 06/26/2024 7:56 PM EST LIPASE STAT 06/26/2024 7:56 PM EST COMPREHENSIVE METABOLIC PANEL STAT 06/26/2024 7:56 PM EST ECG 12-LEAD STAT 06/26/2024 7:45 PM EST documented in this encounter Results * Troponin I high sensitivity (06/26/2024 9:43 PM EST) High Sensitivity Troponin I 4 <=79 ng/L LAB CHEMISTRY METHOD 06/26/2024 10:14 PM EST [facility] Blood Venous blood specimen / Unknown Venipuncture / Unknown 06/26/2024 9:43 PM EST 06/26/2024 9:48 PM EST Narrative [facility] - 06/26/2024 10:14 PM EST High levels of biotin in samples may falsely decrease hsTroponin values. ??Use caution when interpreting hsTroponin results in patients taking biotin who exhibit renal impairment (eGFR <60) or in patients taking more than 20 mg/day of biotin. Mariam Woo DO LAB BLOOD ORDERABLES Chiquita l Result Performing Organization Address City/State/[facility] de Phone Number [facility] [place] [facility] [address] [place] [address], [place] [phone] * ECG 12 lead (06/26/2024 9:36 PM EST) Ventricular Rate ECG 62 BPM GEMUSE Atrial Rate 62 BPM GEMUSE P-R Interval 132 ms GEMUSE QRS Duration 98 ms GEMUSE Q-T Interval 410 ms GEMUSE QTc 416 ms GEMUSE P Wave Sandstone 63 degrees GEMUSE R [place] 83 degrees GEMUSE T [place]stone 63 degrees GEMUSE ECG Interpretation Normal sinus rhythm Normal ECG When compared with ECG of 26-JUN-2024 19:45, No significant change was found Confirmed by MARGARITA MEZA ([id number]) on 06/27/2024 7:38:00 AM GEMUSE 06/26/2024 9:36 PM EST 06/27/2024 7:38 AM EST Rigo Lamont Miles Woo DO ECG ORDERABLES Final Res ult Performing Organization Address [facility] de Phone Number GEMUSE * XR Chest 2 Views (06/26/2024 8:00 [...] Signed Date: 06/27/2024 07:18 ET Workstation ID: [id number] Transcribed By: Self Edit Transcribed Date: 06/27/2024 [...] Signed Date: 06/27/2024 07:18 ET Workstation ID: [id number] Transcribed By: Self Edit Transcribed Date: 06/27/2024 07:17 ET us [facility] Lamont Woo DO IMG XR PROCEDURES Final R esult * CBC auto differential (06/26/2024 7:56 PM EST) WBC 9.9 4.8 - 10.8 K/mcL LAB HEMETOLOGY METHOD 06/26/2024 8:43 PM [facility] RBC 4.90 4.50 - 5.50 M/mcL LAB HEMETOLOGY METHOD 06/26/2024 8:43 PM [facility] Hemoglobin 15.0 13.5 - 17.5 g/dL LAB HEMETOLOGY METHOD 06/26/2024 8:43 PM [facility] Hematocrit 44.8 42.0 - 54.0 % LAB HEMETOLOGY METHOD 06/26/2024 8:43 PM [facility] MCV 92.0 79.0 - 98.0 FL LAB HEMETOLOGY METHOD 06/26/2024 8:43 PM [facility] MCH 30.8 27.0 - 32.0 pcg LAB HEMETOLOGY METHOD 06/26/2024 8:43 PM [facility] MCHC 33.5 32.0 - 37.0 g/dL LAB HEMETOLOGY METHOD 06/26/2024 8:43 PM [facility] RDW 12.4 11.0 - 15.0 % LAB HEMETOLOGY METHOD 06/26/2024 8:43 PM [facility] Platelets 269 130 - 400 K/mcL LAB HEMETOLOGY METHOD 06/26/2024 8:43 PM [facility] MPV 10.8 7.0 - 11.0 FL LAB HEMETOLOGY METHOD 06/26/2024 8:43 PM [facility] NRBC 0.0 <1.0 % LAB HEMETOLOGY METHOD 06/26/2024 8:43 PM [facility] NRBC Absolute 0.00 <0.10 K/mcL LAB HEMETOLOGY METHOD 06/26/2024 8:43 PM [facility] Neutrophils Relative 64.4 % LAB HEMETOLOGY METHOD 06/26/2024 8:43 PM [facility] Lymphocytes Relative 26.7 % LAB HEMETOLOGY METHOD 06/26/2024 8:43 PM [facility] Monocytes Relative 6.3 % LAB HEMETOLOGY METHOD 06/26/2024 8:43 PM [facility] Eosinophils Relative 1.8 % LAB HEMETOLOGY METHOD 06/26/2024 8:43 PM [facility] Basophils Relative 0.5 % LAB HEMETOLOGY METHOD 06/26/2024 8:43 PM [facility] Immature Granulocytes Relative 0.3 % LAB HEMETOLOGY METHOD 06/26/2024 8:43 PM [facility] Neutrophils Absolute 6.34 1.50 - 7.00 K/mcL LAB HEMETOLOGY METHOD 06/26/2024 8:43 PM EST [facility] Lymphocytes Absolute 2.63 1.00 - 5.00 K/[facility] LAB HEMETOLOGY METHOD 06/26/2024 8:43 PM EST [facility] Monocytes Absolute 0.62 0.20 - 1.00 K/[facility] LAB HEMETOLOGY METHOD 06/26/2024 8:43 PM EST [facility] Eosinophils Absolute 0.18 0.00 - 0.50 K/[facility] LAB HEMETOLOGY METHOD 06/26/2024 8:43 PM EST [facility] Basophils Absolute 0.05 0.00 - 0.20 K/[facility] LAB HEMETOLOGY METHOD 06/26/2024 8:43 PM EST [facility] Immature Granulocytes Absolute 0.03 0.00 - 0.03 K/[facility] LAB HEMETOLOGY METHOD 06/26/2024 8:43 PM EST [facility] Blood Venous blood specimen / Unknown Venipuncture / Unknown 06/26/2024 7:56 PM EST 06/26/2024 8:30 PM EST us Mariam Woo DO LAB BLOOD ORDERABLES Chiquita l Result [facility] [address] [place] [address], * (ABNORMAL) D-dimer, quantitative (06/26/2024 7:56 PM EST) D-Dimer, Quant (D-DU) 252(H) <=230 ng/mL DDU LAB COAGULATION METHOD 06/26/2024 8:53 PM EST [facility] Blood Venous blood specimen / Unknown Venipuncture / Unknown 06/26/2024 7:56 PM EST 06/26/2024 8:30 PM EST Narrative [facility] - 06/26/2024 8:53 PM EST D-Dimer <230 ng/mL (D-Dimer units) is the threshold for exclusion of DVT/PE. D-Dimer may be elevated in: Critically ill, severely infected, trauma patients, DIC, acute CVA, acute [place], unstable angina, AF, old age, , and smoking. D-Dimer may be decreased with: Initiation of heparin therapy and oral anticoagulants. Mariam Woo LAB BLOOD ORDERABLES Chiquita l Result Performing Organization Address [facility] Co de Phone Number [facility] [address] [place] [address], * B-type natriuretic peptide (06/26/2024 7:56 PM EST) Pathologist [facility] BNP <2 <=100 pcg/mL LAB CHEMISTRY METHOD 06/26/2024 9:12 PM EST [facility] Blood Venous blood specimen / Unknown Venipuncture / Unknown 06/26/2024 7:56 PM EST 06/26/2024 8:30 PM EST Mariam Woo LAB BLOOD ORDERABLES Chiquita l Result Performing Organization Address [facility] Co de Phone Number [facility] [address] [place] [address], * Magnesium (06/26/2024 7:56 PM EST) Pathologist [facility] Magnesium 2.0 1.9 - 2.6 mg/dL LAB CHEMISTRY METHOD 06/26/2024 9:04 PM EST [facility] Blood Venous blood specimen / Unknown Venipuncture / Unknown 06/26/2024 7:56 PM EST 06/26/2024 8:30 PM EST Mariam Woo LAB BLOOD ORDERABLES Chiquita l Result Performing Organization Address [facility] Co de Phone Number [facility] [address] [place] [address], [place] [phone] * Lipase (06/26/2024 7:56 PM EST) Pathologist [facility] Lipase 61 13 - 75 unit/L LAB CHEMISTRY METHOD 06/26/2024 9:04 PM [facility] Blood Venous blood specimen / Unknown Venipuncture / Unknown 06/26/2024 7:56 PM EST 06/26/2024 8:30 PM EST us Mariam Woo DO LAB BLOOD ORDERABLES Chiquita l Result [facility] [address] [place] [address], [place] [phone] * (ABNORMAL) Comprehensive metabolic panel (06/26/2024 7:56 PM EST) Pathologist [facility] Sodium 136 133 - 145 mmol/L LAB CHEMISTRY METHOD 06/26/2024 9:04 PM [facility] Potassium 3.6 3.5 - 5.5 mmol/L LAB CHEMISTRY METHOD 06/26/2024 9:04 PM [facility] Chloride 105 96 - 110 mmol/L LAB CHEMISTRY METHOD 06/26/2024 9:04 PM [facility] CO2 24 21 - 32 mmol/L LAB CHEMISTRY METHOD 06/26/2024 9:04 PM [facility] Anion Gap 7 3 - 11 LAB CHEMISTRY METHOD 06/26/2024 9:04 PM [facility] Glucose 114(H) 70 - 100 mg/dL LAB CHEMISTRY METHOD 06/26/2024 9:04 PM [facility] BUN 15 5 - 25 mg/dL LAB CHEMISTRY METHOD 06/26/2024 9:04 PM [facility] Creatinine 0.94 0.70 - 1.30 mg/dL LAB CHEMISTRY METHOD 06/26/2024 9:04 PM EST [facility] eGFR 106 >=60 mL/min/1. 73m2 LAB CHEMISTRY METHOD 06/26/2024 9:04 PM [facility] Comment:Calculation based on the??Chronic Kidney Disease Epidemiology Collaboration (CKD-EPI) equation refit??without adjustment for race. BUN/Creatinine Ratio 16.0 LAB CHEMISTRY METHOD 06/26/2024 9:04 PM [facility] Calcium 9.8 8.5 - 10.5 mg/dL LAB CHEMISTRY METHOD 06/26/2024 9:04 PM [facility] AST (SGOT) 30 10 - 42 unit/L LAB CHEMISTRY METHOD 06/26/2024 9:04 PM [facility] ALT (SGPT) 51 10 - 60 unit/L LAB CHEMISTRY METHOD 06/26/2024 9:04 PM [facility] Alkaline Phosphatase 95 42 - 121 unit/L LAB CHEMISTRY METHOD 06/26/2024 9:04 PM [facility] Total Protein 7.9 6.0 - 8.0 g/dL LAB CHEMISTRY METHOD 06/26/2024 9:04 PM [facility] Albumin 4.6 3.2 - 5.0 g/dL LAB CHEMISTRY METHOD 06/26/2024 9:04 PM [facility] Total Bilirubin 0.5 0.0 - 1.4 mg/dL LAB CHEMISTRY METHOD 06/26/2024 9:04 PM [facility] Blood Venous blood specimen / Unknown Venipuncture / Unknown 06/26/2024 7:56 PM EST 06/26/2024 8:30 PM EST us Mariam Woo DO LAB BLOOD ORDERABLES Chiquita l Result [facility] [address] [place] [address], [place] [phone] * Troponin I high sensitivity (06/26/2024 7:56 PM EST) [facility] High Sensitivity Troponin I 4 <=79 ng/L LAB CHEMISTRY METHOD 06/26/2024 9:03 PM EST [facility] Blood Venous blood specimen / Unknown Venipuncture / Unknown 06/26/2024 7:56 PM EST 06/26/2024 8:30 PM EST Narrative [facility] - 06/26/2024 9:03 PM EST High levels of biotin in samples may falsely decrease hsTroponin values. ??Use caution when interpreting hsTroponin results in patients taking biotin who exhibit renal impairment (eGFR <60) or in patients taking more than 20 mg/day of biotin. us Mariam Woo DO LAB BLOOD ORDERABLES Chiquita l Result Performing Organization Address [facility] Co de Phone Number [facility] [address] [place] [address], [place] [phone] * ECG 12 lead (06/26/2024 7:45 PM EST) [facility] Ventricular Rate ECG 69 BPM GEMUSE Atrial Rate 69 BPM GEMUSE P-R Interval 132 ms GEMUSE QRS Duration 100 ms GEMUSE Q-T Interval 384 ms GEMUSE QTc 411 ms GEMUSE P Wave Sandstone 82 degrees GEMUSE R [place] 86 degrees GEMUSE T [place] 68 degrees GEMUSE ECG Interpretation Normal sinus rhythm Normal ECG When compared with ECG of 28-JUL-2022 01:05, No significant change was found Confirmed by MARGARITA MEZA ([id number]) on 06/27/2024 7:33:41 AM GEMUSE 06/26/2024 7:45 PM EST 06/27/2024 7:33 AM EST us Mariam Lamont Jd Woo DO ECG ORDERABLES Final Res ult Performing Organization Address [facility] Co de Phone Number GEMUSE documented in this encounter Visit Diagnoses Not on filedocumented in this encounter
--- OUTSIDE RECORDS SUMMARY | 2024-06-30 12:47 | XMS_ITS | Encounter Summary ---
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 Encounter Details Date Type Department Care Team (Late st Contact Info) Description 06/28/2024 1:23 PM EST - 06/28/2024 7:13 PM EST Emergency [facility] Emergency [address] [place] [id number] Chest pain, unspecified type (Primary Dx) Discharge Disposition: Home or Self Care Social [...] Mass Index 25.8 06/28/2024 12:31 PM EST documented in this encounter Discharge Instructions * Discharge Instructions* MINERVA Chawla - 06/28/2024 6:44 PM EST Follow-up with your primary care provider at your current appointment in 2 days. Recommend fasting blood test for further evaluation of your cholesterol. Follow-up with thoracic referral. Call to schedule follow-up appointment. Hydroxyzine as directed. Use caution as this medication may make you drowsy. Do not drive or operate heavy machinery or drink alcohol with taking this medication. Nicotine gum as directed. Discontinue smoking, vaping. Follow up with your primary provider. Call tomorrow for appointment. Return to Emergency Department if symptoms worsen, don't improve, or any other concern. Get well soon! [facility] Primary Care & Specialty Office Locations [place] [phone] [place] [phone] [place] ([address]) [phone] [place] ([address]) [phone] Orthopedics: [phone] Thank you for coming to the [facility] Emergency Department today. Our entire team works together to provide you with the best care possible. Examination and treatment you received in the emergency department has been rendered on an EMERGENCY basis only. It is not intended to be a substitute for or an effort to provide complete medical care. You should follow-up with your primary care provider. Please report to your physician any new or remaining problems, because it is impossible to recognize and treat all elements of injury or illness in a single emergency department visit. In the event that you're unable to obtain a followup appointment in a timely fashion, OR you are not getting any better, OR you are getting worse, OR you develop any symptoms of concern, please return here immediately for further evaluation. The emergency department is open 24 hours a day, 7 days aweek. Your discharge report is based on information that was available when you were in the emergency department. * Attachments The following attachments cannot be sent through Care Everywhere. * Chest Pain (Hebrew) documented in this encounter Medications at Time of Discharge hydrOXYzine pamoate (VISTARIL) 25 mg capsule Take 1 capsule (25 mg total) by mouth every 6 (six) hours if needed for anxiety. 20 capsule 06/28/2024 lactulose (CHRONULAC) solution Take 30 mL by mouth 2 times daily. 03/04/2023 nicotine polacrilex (NICORETTE) [address] 1 each (2 mg total) into mouth between cheek and gum every 2 (two) hours if needed for smoking cessation for up to 4 days. 48 each 06/28/2024 polyethylene glycol (MIRALAX) 17 gram packet Take 1 Packet by mouth daily. 03/04/2023 polyethylene glycol (MIRALAX) 17 gram packet Take 1 Packet by mouth daily as needed (constipation). 07/29/2022 psyllium (Daily Fiber, psyllium-aspart, ) 3.4 gram packet Take 1 Packet by mouth daily. 03/04/2023 simethicone (MYLICON) 125 mg chewable tablet Take 1 Tablet by mouth every 6 hours as needed for Flatulence. 03/04/2023 documented as of this encounter Ordered Prescriptions Prescription Sig Dispense Quantity Refills Last Filled Start Date End Date nicotine polacrilex (NICORETTE) [address] 1 each (2 mg total) into mouth between cheek and gum every 2 (two) hours if needed for smoking cessation for up to 4 days. 48 each 06/28/2024 hydrOXYzine pamoate (VISTARIL) 25 mg capsule Take 1 capsule (25 mg total) by mouth every 6 (six) hours if needed for anxiety. 20 capsule 06/28/2024 documented in this encounter Discharge Disposition Disposition Code Departure Means Destination Comment s Home or Self Care documented in this encounter Progress Notes * Edison Guzmán RN - 06/28/2024 7:12 PM EST Pt seen and cleared for d/c by ED provider, d/c instructions reviewed. Rx'd medication education provided, all questions answered. Pt seen ambulating out of department with ease. * Jazmine Beatty RN - 06/28/2024 12:29 PM EST Pt c/o chest pain that started 2 months ago Seen on sat for same documented in this encounter Plan of Treatment Upcoming Encounters Date Type Department Care Team (Late st Contact Info) Description 07/12/2024 1:30 PM EST Consult Thoracic Surgery - [place] [address] [phone] Estrella Galvan MD [address] [address] Scheduled Referrals Name Type Priority Associated Diagnoses Order Schedule Ambulatory referral to Thoracic Surgery Outpatient Referral Routine 1 Occurr ences starting 06/28/2024 until 06/28/2025 documented as of this encounter Procedures Procedure Name Priority Date/Time Associated Diagnosis Comments ECG ANNOTATED 06/30/2024 ECG ANNOTATED 06/30/2024 CT ANGIO CHEST WO AND/OR W CONTRAST STAT 06/28/2024 5:45 PM EST Chest pain, unspecified type TROPONIN I HIGH SENSITIVITY STAT 06/28/2024 2:43 PM EST ECG 12-LEAD STAT 06/28/2024 2:40 PM EST TROPONIN I HIGH SENSITIVITY STAT 06/28/2024 1:36 PM EST CBC WITH AUTO DIFFERENTIAL STAT 06/28/2024 1:36 PM EST CBC AND DIFFERENTIAL STAT 06/28/2024 1:36 PM EST B-TYPE NATRIURETIC PEPTIDE STAT 06/28/2024 1:36 PM EST MAGNESIUM STAT 06/28/2024 1:36 PM EST LIPASE STAT 06/28/2024 1:36 PM EST COMPREHENSIVE METABOLIC PANEL STAT 06/28/2024 1:36 PM EST ECG 12-LEAD STAT 06/28/2024 12:27 PM EST documented in this encounter Results * ECG-Annotated (06/30/2024) us Provider Onbase MD ECG ORDERABLES Final Result * ECG-Annotated (06/30/2024) us Provider Onbase MD ECG ORDERABLES Final [...] by: Pepito Srivastava MD on 06/28/2024 18:21:[address] PROCEDURES Final Resu lt * Troponin I high sensitivity (06/28/2024 2:43 PM EST) High Sensitivity Troponin I 4 [...] ORDERABLES Chiquita l Result Performing Organization Address [facility]/ZIP Co de Phone Number [facility] [address] [place] [address], [place] [phone] * ECG 12 lead (06/28/2024 2:40 PM EST) Ventricular Rate ECG 63 BPM GEMUSE Atrial Rate 63 BPM GEMUSE P-R Interval 134 ms GEMUSE QRS Duration 94 ms GEMUSE Q-T Interval 408 ms GEMUSE QTc 417 ms GEMUSE P Wave Kendrick 50 degrees GEMUSE R Kendrick 77 degrees GEMUSE T Kendrick 50 degrees GEMUSE ECG Interpretation Normal sinus rhythm Normal ECG When compared with ECG of 28-JUN-2024 12:27, (unconfirmed) No significant change was found Confirmed by Diogo HAYWOOD JAMES ([id number]) on 06/28/2024 6:39:11 PM GEMUSE 06/28/2024 2:40 PM EST 06/28/2024 6:39 PM EST Chu Small MD ECG ORDERABLES Final Res ult Performing Organization Address [facility] Co de Phone Number GEMUSE * (ABNORMAL) CBC auto differential (06/28/2024 1:36 PM EST) WBC 8.3 4.8 - 10.8 K/mcL LAB HEMETOLOGY METHOD 06/28/2024 2:41 PM EST [facility] RBC 5.00 4.50 - 5.50 M/mcL LAB HEMETOLOGY METHOD 06/28/2024 2:41 PM EST [facility] Hemoglobin 15.6 13.5 - 17.5 g/dL LAB HEMETOLOGY METHOD 06/28/2024 2:41 PM EST [facility] Hematocrit 45.4 42.0 - 54.0 % LAB HEMETOLOGY METHOD 06/28/2024 2:41 PM [facility] MCV 90.1 79.0 - 98.0 FL LAB HEMETOLOGY METHOD 06/28/2024 2:41 PM [facility] MCH 31.0 27.0 - 32.0 pcg LAB HEMETOLOGY METHOD 06/28/2024 2:41 PM [facility] MCHC 34.4 32.0 - 37.0 g/dL LAB HEMETOLOGY METHOD 06/28/2024 2:41 PM [facility] RDW 12.3 11.0 - 15.0 % LAB HEMETOLOGY METHOD 06/28/2024 2:41 PM [facility] Platelets 235 130 - 400 K/mcL LAB HEMETOLOGY METHOD 06/28/2024 2:41 PM [facility] MPV 11.5(H) 7.0 - 11.0 FL LAB HEMETOLOGY METHOD 06/28/2024 2:41 PM [facility] NRBC 0.0 <1.0 % LAB HEMETOLOGY METHOD 06/28/2024 2:41 PM [facility] NRBC Absolute 0.00 <0.10 K/mcL LAB HEMETOLOGY METHOD 06/28/2024 2:41 PM [facility] Neutrophils Relative 75.6 % LAB HEMETOLOGY METHOD 06/28/2024 2:41 PM [facility] Lymphocytes Relative 17.4 % LAB HEMETOLOGY METHOD 06/28/2024 2:41 PM [facility] Monocytes Relative 5.6 % LAB HEMETOLOGY METHOD 06/28/2024 2:41 PM [facility] Eosinophils Relative 0.4 % LAB HEMETOLOGY METHOD 06/28/2024 2:41 PM [facility] Basophils Relative 0.6 % LAB HEMETOLOGY METHOD 06/28/2024 2:41 PM [facility] Immature Granulocytes Relative 0.4 % LAB HEMETOLOGY METHOD 06/28/2024 2:41 PM EST [facility] Neutrophils Absolute 6.26 1.50 - 7.00 K/mcL LAB HEMETOLOGY METHOD 06/28/2024 2:41 PM [facility] Lymphocytes Absolute 1.44 1.00 - 5.00 K/mcL LAB HEMETOLOGY METHOD 06/28/2024 2:41 PM EST [facility] Monocytes Absolute 0.46 0.20 - 1.00 K/mcL LAB HEMETOLOGY METHOD 06/28/2024 2:41 PM EST [facility] Eosinophils Absolute 0.03 0.00 - 0.50 K/mcL LAB HEMETOLOGY METHOD 06/28/2024 2:41 PM EST [facility] Basophils Absolute 0.05 0.00 - 0.20 K/mcL LAB HEMETOLOGY METHOD 06/28/2024 2:41 PM EST [facility] Immature Granulocytes Absolute 0.03 0.00 - 0.03 K/mcL LAB HEMETOLOGY METHOD 06/28/2024 2:41 PM EST [facility] Blood Venous blood specimen / Unknown Venipuncture / Unknown 06/28/2024 1:36 PM EST 06/28/2024 2:04 PM EST us Chu Small MD LAB BLOOD ORDERABLES Chiquita garrett Result [facility] [address] [place] [address], * B-type natriuretic peptide (06/28/2024 1:36 PM EST) BNP <2 <=100 pcg/mL LAB CHEMISTRY METHOD 06/28/2024 2:50 PM EST [facility] Blood Venous blood specimen / Unknown Venipuncture / Unknown 06/28/2024 1:36 PM EST 06/28/2024 2:04 PM EST us Chu Small MD LAB BLOOD ORDERABLES Chiquita l Result Performing Organization Address [facility] Co de Phone Number [facility] [address] [place] [address], [place] [phone] * Magnesium (06/28/2024 1:36 PM EST) [facility] Magnesium 2.2 1.9 - 2.6 mg/dL LAB CHEMISTRY METHOD 06/28/2024 2:58 PM EST [facility] Comment:Hemolysis present Blood Venous blood specimen / Unknown Venipuncture / Unknown 06/28/2024 1:36 PM EST 06/28/2024 2:04 PM EST us Chu Small MD LAB BLOOD ORDERABLES Chiquita l Result Performing Organization Address [facility] de Phone Number [facility] [address] [place] [address], [place] [phone] * Lipase (06/28/2024 1:36 PM EST) [facility] Lipase 41 13 - 75 unit/L LAB CHEMISTRY METHOD 06/28/2024 2:58 PM EST [facility] Blood Venous blood specimen / Unknown Venipuncture / Unknown 06/28/2024 1:36 PM EST 06/28/2024 2:04 PM EST us Chu Small MD LAB BLOOD ORDERABLES Chiquita l Result Performing Organization Address [facility]/ZIP Co de Phone Number [facility] [address] [place] [address], [place] [phone] * (ABNORMAL) Comprehensive metabolic panel (06/28/2024 1:36 PM EST) [facility] Sodium 136 133 - 145 mmol/L LAB CHEMISTRY METHOD 06/28/2024 2:58 PM [facility] Potassium 4.2 3.5 - 5.5 mmol/L LAB CHEMISTRY METHOD 06/28/2024 2:58 PM [facility] Comment:Hemolysis present Chloride 102 96 - 110 mmol/L LAB CHEMISTRY METHOD 06/28/2024 2:58 PM [facility] CO2 25 21 - 32 mmol/L LAB CHEMISTRY METHOD 06/28/2024 2:58 PM [facility] Anion Gap 9 3 - 11 LAB CHEMISTRY METHOD 06/28/2024 2:58 PM [facility] Glucose 85 70 - 100 mg/dL LAB CHEMISTRY METHOD 06/28/2024 2:58 PM [facility] BUN 12 5 - 25 mg/dL LAB CHEMISTRY METHOD 06/28/2024 2:58 PM [facility] Creatinine 0.94 0.70 - 1.30 mg/dL LAB CHEMISTRY METHOD 06/28/2024 2:58 PM [facility] eGFR 106 >=60 mL/min/1. 73m2 LAB CHEMISTRY METHOD 06/28/2024 2:58 PM [facility] Comment:Calculation based on the??Chronic Kidney Disease Epidemiology Collaboration (CKD-EPI) equation refit??without adjustment for race. BUN/Creatinine Ratio 12.8 LAB CHEMISTRY METHOD 06/28/2024 2:58 PM [facility] Calcium 10.3 8.5 - 10.5 mg/dL LAB CHEMISTRY METHOD 06/28/2024 2:58 PM [facility] AST (SGOT) 25 10 - 42 unit/L LAB CHEMISTRY METHOD 06/28/2024 2:58 PM [facility] Comment:Hemolysis present ALT (SGPT) 41 10 - 60 unit/L LAB CHEMISTRY METHOD 06/28/2024 2:58 PM [facility] Alkaline Phosphatase 86 42 - 121 unit/L LAB CHEMISTRY METHOD 06/28/2024 2:58 PM EST [facility] Total Protein 8.3(H) 6.0 - 8.0 g/dL LAB CHEMISTRY METHOD 06/28/2024 2:58 PM EST [facility] Albumin 4.9 3.2 - 5.0 g/dL LAB CHEMISTRY METHOD 06/28/2024 2:58 PM EST [facility] Total Bilirubin 0.8 0.0 - 1.4 mg/dL LAB CHEMISTRY METHOD 06/28/2024 2:58 PM EST [facility] Blood Venous blood specimen / Unknown Venipuncture / Unknown 06/28/2024 1:36 PM EST 06/28/2024 2:04 PM EST Chu Small MD LAB BLOOD ORDERABLES Chiquita l Result [facility] [address] [place] [address], [place] [phone] * Troponin I high sensitivity (06/28/2024 1:36 PM EST) High Sensitivity Troponin I 4 <=79 ng/L LAB CHEMISTRY METHOD 06/28/2024 2:42 PM EST [facility] Blood Venous blood specimen / Unknown Venipuncture / Unknown 06/28/2024 1:36 PM EST 06/28/2024 2:04 PM EST Narrative [facility] - 06/28/2024 2:42 PM EST High levels of biotin in samples may falsely decrease hsTroponin values. ??Use caution when interpreting hsTroponin results in patients taking biotin who exhibit renal impairment (eGFR <60) or in patients taking more than 20 mg/day of biotin. Chu Small MD LAB BLOOD ORDERABLES Chiquita l Result [facility] [address] [place] [address], [place] [phone] * ECG 12 lead (06/28/2024 12:27 PM EST) Ventricular Rate ECG 65 BPM GEMUSE Atrial Rate 65 BPM GEMUSE P-R Interval 138 ms GEMUSE QRS Duration 100 ms GEMUSE Q-T Interval 398 ms GEMUSE QTc 413 ms GEMUSE P Wave Kendrick 75 degrees GEMUSE R Kendrick 87 degrees GEMUSE T Kendrick 56 degrees GEMUSE ECG Interpretation Normal sinus rhythm Normal ECG When compared with ECG of 26-JUN-2024 21:36, No significant change was found Confirmed by Diogo HAYWOOD JAMES ([id number]) on 06/28/2024 6:37:34 PM GEMUSE 06/28/2024 12:2 7 PM EST 06/28/2024 6:37 PM EST us Chu Small MD ECG ORDERABLES Final Res ult GEMUSE documented in this encounter Visit Diagnoses Diagnosis Chest pain, unspecified type- Primary documented in this encounter Administered Medications Inactive Administered Medications - up to 3 most recent administrations Medication Order MAR Action Action Date Dose Rate Site hydrOXYzine pamoate (VISTARIL) capsule 25 mg 25 mg, oral, Once, On Fri06/28/24 at 1843, For 1 dose Given 06/28/2024 7:05 PM EST 25 mg iopamidoL (ISOVUE-370) 370 mg iodine /mL (76 %) injection 100 mL 100 mL, intravenous, Once in imaging, Starting on Fri06/28/24 at 1732, For 1 dose Given 06/28/2024 5:34 PM EST 100 mL sodium chloride 0.9 % flush 10 mL 10 mL, intravenous, Once, On Fri06/28/24 at 1733, For 1 dose Given 06/28/2024 5:34 PM EST 10 mL documented in this encounter Active and Recently Administered Medications Times are shown in EST. Scheduled Medication Order 06/26/2024 06/27/2024 06/28/2024 hydrOXYzine pamoate (VISTARIL) capsule 25 mg (COMPLETED) 25 mg, oral, Once, On Fri06/28/24 at 1843, For 1 dose 1905 (Given - Provid er: Edison Guzmán RN) iopamidoL (ISOVUE-370) 370 mg iodine /mL (76 %) injection 100 mL (COMPLETED) 100 mL, intravenous, Once in imaging, Starting on Fri06/28/24 at 1732, For 1 dose 1734 (Given - Provid er: Faustina Perez) sodium chloride 0.9 % flush 10 mL (COMPLETED) 10 mL, intravenous, Once, On Fri06/28/24 at 1733, For 1 dose 1734 (Given - Provid er: Faustina Perez) documented in this encounter Care Teams Awnings Mechanic Relationship Specialty Start Date End Date Physician, Pcp Unknown PCP - General 06/28/24 documented as of this encounter
== END 2024-06-30 12:06 | disposition home or self-care (01) ==
DX: R07.9 Chest pain, unspecified (principal); J43.9 Emphysema, unspecified; J98.4 Other disorders of lung; M85.571 Aneurysmal bone cyst, right ankle and foot; M85.572 Aneurysmal bone cyst, left ankle and foot; K13.0 Diseases of lips; F41.9 Anxiety disorder, unspecified; F17.219 Nicotine dependence, cigarettes, with unspecified nicotine-induced disorders

== ENCOUNTER 2024-06-30 10:57 | Outpatient (REF) | payer BC, SELFPAY ==
[2024-06-30 12:25] LABS: MANUAL DIFF FLAG NO
[2024-06-30 13:12] LABS: Basophils Absolute Auto 0.1 X10*3/uL (0.0-0.2); Basophils Percent Auto 0.9 % (0-2); Eosinophils Absolute Auto 0.1 X10*3/uL (0.0-0.4); Eosinophils Percent Auto 1.1 % (0-4); Hematocrit 42.2 % (42.0-52.0); Hemoglobin 14.5 g/dl (14.0-18.0); Imm Gran Abs Auto 0.02 X10*3/uL (0.00-0.03); Imm Gran Pct Auto 0.3 % (0.0-0.4); Lymphocytes Absolute Auto 1.7 X10*3/uL (1.2-4.9); Lymphocytes Percent Auto 26.9 % (20-40); Mean Corpuscular HGB Conc 34.4 g/dl (31.0-36.0); Mean Corpuscular Hemoglobin 30.9 pg (27.0-33.0); Mean Corpuscular Volume 89.8 fL (80.0-98.0); Monocytes Absolute Auto 0.5 X10*3/uL (0.1-1.2); Monocytes Percent Auto 7.1 % (2-11); Neutrophils Absolute Auto 4.1 x10*3/uL (2.0-8.3); Neutrophils Percent Auto 63.7 % (45-73); Platelet Count 273 X10*3/uL (160-400); Red Cell Distribution Width 12.2 % (11.0-16.0); White Blood Count 6.5 X10*3/uL (4.8-10.8)
[2024-06-30 13:19] LABS: Appearance Urine Clear; Color Urine Yellow; Glucose Urine UA Negative (Negative); Leukocyte Esterase Urine Negative (Negative); Nitrite Urine Negative (Negative); PH 7.5 (5.0-9.0); Specific Gravity - Urine 1.015 (1.005-1.025); Urine Blood Negative (Negative); Urine Ketones Negative (Negative); Urine Protein Negative (Neg-Trace)
[2024-06-30 13:47] LABS: Alanine Aminotransferase 34 U/L (0-40); Alkaline Phosphatase 79 U/L (39-117); Anion Gap 11 (12-20); Aspartate Amino Transferase 30 U/L (5-37); Bilirubin Total 0.8 mg/dL (0.0-1.0); Blood Urea Nitrogen 11 mg/dL (9-16); Calcium 9.7 mg/dL (8.4-10.2); Carbon Dioxide 26 mmol/L (22-29); Chloride 105 mmol/L (96-108); Cholesterol 242 mg/dL (<200); Estimated Glomerular Filt Rate > 60; Glucose Fasting 99 mg/dL (60-99); HDL Cholesterol 48 mg/dL (>40); LDL Cholesterol Calculated 178 mg/dL (<100); Potassium 4.2 mmol/L (3.3-5.1); Sodium 138 mmol/L (135-145); Total Protein 8.3 g/dL (6.5-8.0); Triglycerides 83 mg/dL (<150)
--- OUTSIDE RECORDS SUMMARY | 2024-06-30 13:49 | XMS_ITS | Encounter Summary ---
Author Organization [facility] Address [address] [place] [address] Care Team Providers Care Exploration Engineer Name Role Phone Unavailable Primary Care Provider Unavailabl e Reason for Visit * Reason Comments Chest Pain X2 MONTHS Encounter Details Date Type Department Care Team (Late st Contact Info) Description 06/26/2024 7:29 PM EST - 06/26/2024 11:08 PM EST Emergency [facility] Emergency [address] [place] [address] Discharge Disposition: Home or Self [...] 1:30 PM EST Consult Thoracic Surgery - [place] [address] [place] [id number] Estrella Galvan MD [address] [place] [id number] documented as of this encounter Procedures Procedure [...] LAB CHEMISTRY METHOD 06/26/2024 10:14 PM EST [facility] Blood Venous blood specimen / Unknown Venipuncture / Unknown 06/26/2024 9:43 PM EST 06/26/2024 9:48 PM EST Narrative [facility] - 06/26/2024 10:14 PM EST High levels of biotin in samples may falsely decrease hsTroponin values. ??Use caution when interpreting hsTroponin results in patients taking biotin who exhibit renal impairment (eGFR <60) or in patients taking more than 20 mg/day of biotin. Mariam Woo DO LAB BLOOD ORDERABLES Chiquita l Result Performing Organization Address City/State/[facility] de Phone Number [facility] [place] [facility] [address] [place] [address], [place] [phone] * ECG 12 lead (06/26/2024 9:36 PM EST) Ventricular Rate ECG 62 BPM GEMUSE Atrial Rate 62 BPM GEMUSE P-R Interval 132 ms GEMUSE QRS Duration 98 ms GEMUSE Q-T Interval 410 ms GEMUSE QTc 416 ms GEMUSE P Wave [place] 63 degrees GEMUSE R [place] 83 degrees GEMUSE T [place] 63 degrees GEMUSE ECG Interpretation Normal sinus rhythm Normal ECG When compared with ECG of 26-JUN-2024 19:45, No significant change was found Confirmed by MARGARITA MEZA ([id number]) on 06/27/2024 7:38:00 AM GEMUSE 06/26/2024 9:36 PM EST 06/27/2024 7:38 AM EST Rigo Lamont Miles Woo DO ECG ORDERABLES Final Res ult Performing Organization Address [facility] de Phone Number GEMUSE * XR Chest [...] Signed Date: 06/27/2024 07:18 ET Workstation ID: [id number] Transcribed By: Self Edit Transcribed Date: 06/27/2024 [...] Signed Date: 06/27/2024 07:18 ET Workstation ID: [id number] Transcribed By: Self Edit Transcribed Date: 06/27/2024 07:17 ET [facility]oo DO IMG XR PROCEDURES Final R esult * CBC auto differential (06/26/2024 7:56 PM EST) WBC 9.9 4.8 - 10.8 K/mcL LAB HEMETOLOGY METHOD 06/26/2024 8:43 PM [facility] RBC 4.90 4.50 - 5.50 M/mcL LAB HEMETOLOGY METHOD 06/26/2024 8:43 PM [facility] Hemoglobin 15.0 13.5 - 17.5 g/dL LAB HEMETOLOGY METHOD 06/26/2024 8:43 PM [facility] Hematocrit 44.8 42.0 - 54.0 % LAB HEMETOLOGY METHOD 06/26/2024 8:43 PM [facility] MCV 92.0 79.0 - 98.0 FL LAB HEMETOLOGY METHOD 06/26/2024 8:43 PM [facility] MCH 30.8 27.0 - 32.0 pcg LAB HEMETOLOGY METHOD 06/26/2024 8:43 PM [facility] MCHC 33.5 32.0 - 37.0 g/dL LAB HEMETOLOGY METHOD 06/26/2024 8:43 PM [facility] RDW 12.4 11.0 - 15.0 % LAB HEMETOLOGY METHOD 06/26/2024 8:43 PM [facility] Platelets 269 130 - 400 K/mcL LAB HEMETOLOGY METHOD 06/26/2024 8:43 PM [facility] MPV 10.8 7.0 - 11.0 FL LAB HEMETOLOGY METHOD 06/26/2024 8:43 PM [facility] NRBC 0.0 <1.0 % LAB HEMETOLOGY METHOD 06/26/2024 8:43 PM [facility] NRBC Absolute 0.00 <0.10 K/mcL LAB HEMETOLOGY METHOD 06/26/2024 8:43 PM [facility] Neutrophils Relative 64.4 % LAB HEMETOLOGY METHOD 06/26/2024 8:43 PM [facility] Lymphocytes Relative 26.7 % LAB HEMETOLOGY METHOD 06/26/2024 8:43 PM [facility] Monocytes Relative 6.3 % LAB HEMETOLOGY METHOD 06/26/2024 8:43 PM [facility] Eosinophils Relative 1.8 % LAB HEMETOLOGY METHOD 06/26/2024 8:43 PM [facility] Basophils Relative 0.5 % LAB HEMETOLOGY METHOD 06/26/2024 8:43 PM [facility] Immature Granulocytes Relative 0.3 % LAB HEMETOLOGY METHOD 06/26/2024 8:43 PM [facility] Neutrophils Absolute 6.34 1.50 - 7.00 K/mcL LAB HEMETOLOGY METHOD 06/26/2024 8:43 PM EST [facility] Lymphocytes Absolute 2.63 1.00 - 5.00 K/[facility] LAB HEMETOLOGY METHOD 06/26/2024 8:43 PM EST [facility] Monocytes Absolute 0.62 0.20 - 1.00 K/[facility] LAB HEMETOLOGY METHOD 06/26/2024 8:43 PM EST [facility] Eosinophils Absolute 0.18 0.00 - 0.50 K/[facility] LAB HEMETOLOGY METHOD 06/26/2024 8:43 PM EST [facility] Basophils Absolute 0.05 0.00 - 0.20 K/[facility] LAB HEMETOLOGY METHOD 06/26/2024 8:43 PM EST [facility] Immature Granulocytes Absolute 0.03 0.00 - 0.03 K/[facility] LAB HEMETOLOGY METHOD 06/26/2024 8:43 PM EST [facility] Blood Venous blood specimen / Unknown Venipuncture / Unknown 06/26/2024 7:56 PM EST 06/26/2024 8:30 PM EST us Mariam Woo DO LAB BLOOD ORDERABLES Chiquita l Result [facility] [address] [place] [address], * (ABNORMAL) D-dimer, quantitative (06/26/2024 7:56 PM EST) D-Dimer, Quant (D-DU) 252(H) <=230 ng/mL DDU LAB COAGULATION METHOD 06/26/2024 8:53 PM EST [facility] Blood Venous blood specimen / Unknown Venipuncture / Unknown 06/26/2024 7:56 PM EST 06/26/2024 8:30 PM EST Narrative [facility] - 06/26/2024 8:53 PM EST D-Dimer <230 ng/mL (D-Dimer units) is the threshold for exclusion of DVT/PE. D-Dimer may be elevated in: Critically ill, severely infected, trauma patients, DIC, acute CVA, acute [place], unstable angina, AF, old age, , and smoking. D-Dimer may be decreased with: Initiation of heparin therapy and oral anticoagulants. Mariam Woo LAB BLOOD ORDERABLES Chiquita l Result Performing Organization Address [facility] Co de Phone Number [facility] [address] [place] [address], * B-type natriuretic peptide (06/26/2024 7:56 PM EST) Pathologist [facility] BNP <2 <=100 pcg/mL LAB CHEMISTRY METHOD 06/26/2024 9:12 PM EST [facility] Blood Venous blood specimen / Unknown Venipuncture / Unknown 06/26/2024 7:56 PM EST 06/26/2024 8:30 PM EST Mraiam Woo LAB BLOOD ORDERABLES Chiquita l Result Performing Organization Address [facility] Co de Phone Number [facility] [address] [place] [address], * Magnesium (06/26/2024 7:56 PM EST) Pathologist [facility] Magnesium 2.0 1.9 - 2.6 mg/dL LAB CHEMISTRY METHOD 06/26/2024 9:04 PM EST [facility] Blood Venous blood specimen / Unknown Venipuncture / Unknown 06/26/2024 7:56 PM EST 06/26/2024 8:30 PM EST Mariam Woo LAB BLOOD ORDERABLES Chiquita l Result Performing Organization Address [facility] Co de Phone Number [facility] [address] [place] [address], [place] [phone] * Lipase (06/26/2024 7:56 PM EST) Pathologist [facility] Lipase 61 13 - 75 unit/L LAB CHEMISTRY METHOD 06/26/2024 9:04 PM [facility] Blood Venous blood specimen / Unknown Venipuncture / Unknown 06/26/2024 7:56 PM EST 06/26/2024 8:30 PM EST us Mariam Woo DO LAB BLOOD ORDERABLES Chiquita l Result [facility] [address] [place] [address], [place] [phone] * (ABNORMAL) Comprehensive metabolic panel (06/26/2024 7:56 PM EST) Pathologist [facility] Sodium 136 133 - 145 mmol/L LAB CHEMISTRY METHOD 06/26/2024 9:04 PM [facility] Potassium 3.6 3.5 - 5.5 mmol/L LAB CHEMISTRY METHOD 06/26/2024 9:04 PM [facility] Chloride 105 96 - 110 mmol/L LAB CHEMISTRY METHOD 06/26/2024 9:04 PM [facility] CO2 24 21 - 32 mmol/L LAB CHEMISTRY METHOD 06/26/2024 9:04 PM [facility] Anion Gap 7 3 - 11 LAB CHEMISTRY METHOD 06/26/2024 9:04 PM [facility] Glucose 114(H) 70 - 100 mg/dL LAB CHEMISTRY METHOD 06/26/2024 9:04 PM [facility] BUN 15 5 - 25 mg/dL LAB CHEMISTRY METHOD 06/26/2024 9:04 PM [facility] Creatinine 0.94 0.70 - 1.30 mg/dL LAB CHEMISTRY METHOD 06/26/2024 9:04 PM EST [facility] eGFR 106 >=60 mL/min/1. 73m2 LAB CHEMISTRY METHOD 06/26/2024 9:04 PM [facility] Comment:Calculation based on the??Chronic Kidney Disease Epidemiology Collaboration (CKD-EPI) equation refit??without adjustment for race. BUN/Creatinine Ratio 16.0 LAB CHEMISTRY METHOD 06/26/2024 9:04 PM [facility] Calcium 9.8 8.5 - 10.5 mg/dL LAB CHEMISTRY METHOD 06/26/2024 9:04 PM [facility] AST (SGOT) 30 10 - 42 unit/L LAB CHEMISTRY METHOD 06/26/2024 9:04 PM [facility] ALT (SGPT) 51 10 - 60 unit/L LAB CHEMISTRY METHOD 06/26/2024 9:04 PM [facility] Alkaline Phosphatase 95 42 - 121 unit/L LAB CHEMISTRY METHOD 06/26/2024 9:04 PM [facility] Total Protein 7.9 6.0 - 8.0 g/dL LAB CHEMISTRY METHOD 06/26/2024 9:04 PM [facility] Albumin 4.6 3.2 - 5.0 g/dL LAB CHEMISTRY METHOD 06/26/2024 9:04 PM [facility] Total Bilirubin 0.5 0.0 - 1.4 mg/dL LAB CHEMISTRY METHOD 06/26/2024 9:04 PM [facility] Blood Venous blood specimen / Unknown Venipuncture / Unknown 06/26/2024 7:56 PM EST 06/26/2024 8:30 PM EST us Mariam Woo DO LAB BLOOD ORDERABLES Chiquita l Result [facility] [address] [place] [address], [place] [phone] * Troponin I high sensitivity (06/26/2024 7:56 PM EST) [facility] High Sensitivity Troponin I 4 <=79 ng/L LAB CHEMISTRY METHOD 06/26/2024 9:03 PM EST [facility] Blood Venous blood specimen / Unknown Venipuncture / Unknown 06/26/2024 7:56 PM EST 06/26/2024 8:30 PM EST Narrative [facility] - 06/26/2024 9:03 PM EST High levels of biotin in samples may falsely decrease hsTroponin values. ??Use caution when interpreting hsTroponin results in patients taking biotin who exhibit renal impairment (eGFR <60) or in patients taking more than 20 mg/day of biotin. us Mariam Woo DO LAB BLOOD ORDERABLES Chiquita l Result Performing Organization Address [facility] Co de Phone Number [facility] [address] [place] [address], [place] [phone] * ECG 12 lead (06/26/2024 7:45 PM EST) [facility] Ventricular Rate ECG 69 BPM GEMUSE Atrial Rate 69 BPM GEMUSE P-R Interval 132 ms GEMUSE QRS Duration 100 ms GEMUSE Q-T Interval 384 ms GEMUSE QTc 411 ms GEMUSE P Wave [place] 82 degrees GEMUSE R [place] 86 degrees GEMUSE T [place] 68 degrees GEMUSE ECG Interpretation Normal sinus rhythm Normal ECG When compared with ECG of 28-JUL-2022 01:05, No significant change was found Confirmed by MARGARITA MEZA ([id number]) on 06/27/2024 7:33:41 AM GEMUSE 06/26/2024 7:45 PM EST 06/27/2024 7:33 AM EST us Mariam Lamont Jd Woo DO ECG ORDERABLES Final Res ult Performing Organization Address [facility] Co de Phone Number GEMUSE documented in this encounter Visit Diagnoses Not on filedocumented in this encounter
--- OUTSIDE RECORDS SUMMARY | 2024-06-30 13:49 | XMS_ITS | Clinical Summary ---
Author Organization [facility] Address [address] [place] [address] Phone Care Team Providers Care Recovery Assistant Name Role Phone Physician, Pcp Unknown Primary [...] sober since February 2016. 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 Encounters Date Type Department Care Team Description 06/28/2024 1:23 PM EST - 06/28/2024 7:13 PM [facility] [address] [place] [phone] Chest pain, unspecified type (Primary Dx) Discharge Disposition: Home or Self Care 06/26/2024 7:29 PM EST - 06/26/2024 11:08 PM [facility] [address] [place] [phone] Discharge Disposition: Home or Self Care from [...] History of drug abuse in rem ission ([facility]) 07/14/2018 DX:History of drug abuse in remission ([facility]); COMMENT: Clean & sober since February 2016. 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 History of seizure 07/14/2018 DX:History of seizure; [...] 1:30 PM EST Consult Thoracic Surgery - [place] 299 [facility] [address] [place] [phone] Estrella Galvan MD 299 [facility] [place] [address] [place] [id number] Health Maintenance Due Date Last Done Comments Pneumococcal Vaccine: Pediat rics (0 to 5 Years) and At-Risk Patients (6 to 64 Years) (1 of 2 - PCV) 02/21/2004 Hepatitis B Vaccines (2 of 3 - 19+ 3-dose series) 11/07/2011 10/10/2011 Depression Screening 04/21/2022 Social Influencers of Health Screening 04/21/2022 COVID-19 Vaccine (1 - 2024-2 5 season) 2024 Influenza Vaccine (#1) 2024 DTaP,Tdap,and Td Vaccines (2 - Td or Tdap) 10/22/2025 10/23/2015 Cholesterol Screening (Lipid Panel) 09/21/2027 09/20/2022 HIV [...] of4 resultswithin the time period is included. [facility] High Sensitivity Troponin I 4 <=79 ng/L LAB CHEMISTRY METHOD 06/28/2024 3:53 PM EST [facility] Blood Venous blood specimen / Unknown Venipuncture / Unknown 06/28/2024 2:43 PM EST 06/28/2024 3:10 PM EST Narrative [facility] - 06/28/2024 3:53 PM EST High levels of biotin in samples may falsely decrease hsTroponin values. ??Use caution when interpreting hsTroponin results in patients taking biotin who exhibit renal impairment (eGFR <60) or in patients taking more than 20 mg/day of biotin. us Chu Small MD LAB BLOOD ORDERABLES Chiquita l Result [facility] [address] [place] [address], * ECG 12 lead (06/28/2024 2:40 PM EST) Only the most recent of4 resultswithin the time period is included. [facility] Ventricular Rate ECG 63 BPM GEMUSE Atrial Rate 63 BPM GEMUSE P-R Interval 134 ms GEMUSE QRS Duration 94 ms GEMUSE Q-T Interval 408 ms GEMUSE QTc 417 ms GEMUSE P Wave [place] 50 degrees GEMUSE R [place] 77 degrees GEMUSE T [place] 50 degrees GEMUSE ECG Interpretation Normal sinus [...] K/mcL LAB HEMETOLOGY METHOD 06/28/2024 2:41 PM [facility] RBC 5.00 4.50 - 5.50 M/mcL LAB HEMETOLOGY METHOD 06/28/2024 2:41 PM [facility] Hemoglobin 15.6 13.5 - 17.5 g/dL LAB HEMETOLOGY METHOD 06/28/2024 2:41 PM [facility] Hematocrit 45.4 42.0 - 54.0 % LAB HEMETOLOGY METHOD 06/28/2024 2:41 PM [facility] MCV 90.1 79.0 - 98.0 FL LAB HEMETOLOGY METHOD 06/28/2024 2:41 PM [facility] MCH 31.0 27.0 - 32.0 pcg LAB HEMETOLOGY METHOD 06/28/2024 2:41 PM [facility] MCHC 34.4 32.0 - 37.0 g/dL LAB HEMETOLOGY METHOD 06/28/2024 2:41 PM [facility] RDW 12.3 11.0 - 15.0 % LAB HEMETOLOGY METHOD 06/28/2024 2:41 PM [facility] Platelets 235 130 - 400 K/mcL LAB HEMETOLOGY METHOD 06/28/2024 2:41 PM [facility] MPV 11.5(H) 7.0 - 11.0 FL LAB HEMETOLOGY METHOD 06/28/2024 2:41 PM [facility] NRBC 0.0 <1.0 % LAB HEMETOLOGY METHOD 06/28/2024 2:41 PM [facility] NRBC Absolute 0.00 <0.10 K/mcL LAB HEMETOLOGY METHOD 06/28/2024 2:41 PM [facility] Neutrophils Relative 75.6 % LAB HEMETOLOGY METHOD 06/28/2024 2:41 PM [facility] Lymphocytes Relative 17.4 % LAB HEMETOLOGY METHOD 06/28/2024 2:41 PM [facility] Monocytes Relative 5.6 % LAB HEMETOLOGY METHOD 06/28/2024 2:41 PM [facility] Eosinophils Relative 0.4 % LAB HEMETOLOGY METHOD 06/28/2024 2:41 PM [facility] Basophils Relative 0.6 % LAB HEMETOLOGY METHOD 06/28/2024 2:41 PM [facility] Immature Granulocytes Relative 0.4 % LAB HEMETOLOGY METHOD 06/28/2024 2:41 PM [facility] Neutrophils Absolute 6.26 1.50 - 7.00 K/mcL LAB HEMETOLOGY METHOD 06/28/2024 2:41 PM [facility] Lymphocytes Absolute 1.44 1.00 - 5.00 K/mcL LAB HEMETOLOGY METHOD 06/28/2024 2:41 PM [facility] Monocytes Absolute 0.46 0.20 - 1.00 K/mcL LAB HEMETOLOGY METHOD 06/28/2024 2:41 PM [facility] Eosinophils Absolute 0.03 0.00 - 0.50 K/mcL LAB HEMETOLOGY METHOD 06/28/2024 2:41 PM [facility] Basophils Absolute 0.05 0.00 - 0.20 K/mcL LAB HEMETOLOGY METHOD 06/28/2024 2:41 PM EST [facility] Immature Granulocytes Absolute 0.03 0.00 - 0.03 K/mcL LAB HEMETOLOGY METHOD 06/28/2024 2:41 PM EST [facility] Blood Venous blood specimen / Unknown Venipuncture / Unknown 06/28/2024 1:36 PM EST 06/28/2024 2:04 PM EST us Chu Small MD LAB BLOOD ORDERABLES Chiquita l Result Performing Organization Address [facility] Co de Phone Number [facility] [address] [place] [address], [place] [phone] * B-type natriuretic peptide (06/28/2024 1:36 PM EST) Only the most recent of2 resultswithin the time period is included. BNP <2 <=100 pcg/mL LAB CHEMISTRY METHOD 06/28/2024 2:50 PM EST [facility] Blood Venous blood specimen / Unknown Venipuncture / Unknown 06/28/2024 1:36 PM EST 06/28/2024 2:04 PM EST hCu Small MD LAB BLOOD ORDERABLES Chiquita l Result Performing Organization Address [facility] Co de Phone Number [facility] [address] [place] [address], [place] [phone] * Magnesium (06/28/2024 1:36 PM EST) Only the most recent of2 resultswithin the time period is included. Magnesium 2.2 1.9 - 2.6 mg/dL LAB CHEMISTRY METHOD 06/28/2024 2:58 PM EST [facility] Comment:Hemolysis present Blood Venous blood specimen / Unknown Venipuncture / Unknown 06/28/2024 1:36 PM EST 06/28/2024 2:04 PM EST us Chu Small MD LAB BLOOD ORDERABLES Chiquita l Result Performing Organization Address [facility]/ZIP Co de Phone Number [facility] [address] [place] [address], [place] [phone] * Lipase (06/28/2024 1:36 PM EST) Only the most recent of2 resultswithin the time period is included. Pathologist [facility] Lipase 41 13 - 75 unit/L LAB CHEMISTRY METHOD 06/28/2024 2:58 PM [facility] Blood Venous blood specimen / Unknown Venipuncture / Unknown 06/28/2024 1:36 PM EST 06/28/2024 2:04 PM EST us Chu Small MD LAB BLOOD ORDERABLES Chiquita l Result Performing Organization Address [facility] de Phone Number [facility] [address] [place] [address], [place] [phone] * (ABNORMAL) Comprehensive metabolic panel (06/28/2024 1:36 PM EST) Only the most recent of2 resultswithin the time period is included. Pathologist [facility] Sodium 136 133 - 145 mmol/L LAB CHEMISTRY METHOD 06/28/2024 2:58 PM [facility] Potassium 4.2 3.5 - 5.5 mmol/L LAB CHEMISTRY METHOD 06/28/2024 2:58 PM [facility] Comment:Hemolysis present Chloride 102 96 - 110 mmol/L LAB CHEMISTRY METHOD 06/28/2024 2:58 PM [facility] CO2 25 21 - 32 mmol/L LAB CHEMISTRY METHOD 06/28/2024 2:58 PM [facility] Anion Gap 9 3 - 11 LAB CHEMISTRY METHOD 06/28/2024 2:58 PM [facility] Glucose 85 70 - 100 mg/dL LAB CHEMISTRY METHOD 06/28/2024 2:58 PM [facility] BUN 12 5 - 25 mg/dL LAB CHEMISTRY METHOD 06/28/2024 2:58 PM [facility] Creatinine 0.94 0.70 - 1.30 mg/dL LAB CHEMISTRY METHOD 06/28/2024 2:58 PM [facility] eGFR 106 >=60 mL/min/1. 73m2 LAB CHEMISTRY METHOD 06/28/2024 2:58 PM [facility] Comment:Calculation based on the??Chronic Kidney Disease Epidemiology Collaboration (CKD-EPI) equation refit??without adjustment for race. BUN/Creatinine Ratio 12.8 LAB CHEMISTRY METHOD 06/28/2024 2:58 PM [facility] Calcium 10.3 8.5 - 10.5 mg/dL LAB CHEMISTRY METHOD 06/28/2024 2:58 PM [facility] AST (SGOT) 25 10 - 42 unit/L LAB CHEMISTRY METHOD 06/28/2024 2:58 PM [facility] Comment:Hemolysis present ALT (SGPT) 41 10 - 60 unit/L LAB CHEMISTRY METHOD 06/28/2024 2:58 PM [facility] Alkaline Phosphatase 86 42 - 121 unit/L LAB CHEMISTRY METHOD 06/28/2024 2:58 PM [facility] Total Protein 8.3(H) 6.0 - 8.0 g/dL LAB CHEMISTRY METHOD 06/28/2024 2:58 PM [facility] Albumin 4.9 3.2 - 5.0 g/dL LAB CHEMISTRY METHOD 06/28/2024 2:58 PM [facility] Total Bilirubin 0.8 0.0 - 1.4 mg/dL LAB CHEMISTRY METHOD 06/28/2024 2:58 PM [facility] Blood Venous blood specimen / Unknown Venipuncture / Unknown 06/28/2024 1:36 PM EST 06/28/2024 2:04 PM EST us Chu Small MD LAB BLOOD ORDERABLES Chiquita l Result [facility] [address] [place] [address], [place] [phone] * XR Chest 2 Views (06/26/2024 8:00 [...] Signed Date: 06/27/2024 07:18 ET Workstation ID: [id number] Transcribed By: Self Edit Transcribed Date: 06/27/2024 [...] Signed Date: 06/27/2024 07:18 ET Workstation ID: [id number] Transcribed By: Self Edit Transcribed Date: 06/27/2024 07:17 ET Rigoletty Lamont Jd Woo DO IMG XR PROCEDURES Final R esult * (ABNORMAL) D-dimer, quantitative (06/26/2024 7:56 PM EST) [facility] D-Dimer, Quant (D-DU) 252(H) <=230 ng/mL DDU LAB COAGULATION METHOD 06/26/2024 8:53 PM EST [facility] Blood Venous blood specimen / Unknown Venipuncture / Unknown 06/26/2024 7:56 PM EST 06/26/2024 8:30 PM EST Narrative [facility] - 06/26/2024 8:53 PM EST D-Dimer <230 ng/mL (D-Dimer units) is the threshold for exclusion of DVT/PE. D-Dimer may be elevated in: Critically ill, severely infected, trauma patients, DIC, acute CVA, acute DC, unstable angina, AF, old age, , and smoking. D-Dimer may be decreased with: Initiation of heparin therapy and oral anticoagulants. Mariam Woo DO LAB BLOOD ORDERABLES Chiqutia l Result [facility] [address] [place] [address], [place] [phone] * HIV Screening (09/20/2022) [facility] HIV Screening abstracted Historical Provider HEALTH MAINTENANCE Final Result * Hepatitis C Screening (09/20/2022) [facility] Hepatitis C Screening abstracted Historical Provider HEALTH MAINTENANCE Final Result * (ABNORMAL) Lipid panel (09/20/2022) [facility] LDL/HDL Ratio 4 0 - 4 Triglycerides 95 0 - 150 mg/dL Cholesterol 248(A) 0 - 200 mg/dL HDL 57 >=40 mg/dL LDL Cholesterol 172(A) 0 - 100 mg/dL Blood Venous blood specimen / Unknown Historical Provider LAB BLOOD ORDERABLES Chiquita l Result from Last 3 Months or Most Recently Relevant to Health Maintenance Insurance [facility]) Care Teams Recovery Assistant Relationship Specialty Start Date End Date Physician, Pcp Unknown PCP - General 06/28/24
--- OUTSIDE RECORDS SUMMARY | 2024-06-30 13:49 | XMS_ITS | Encounter Summary ---
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 Encounter Details Date Type Department Care Team (Late st Contact Info) Description 06/28/2024 1:23 PM EST - 06/28/2024 7:13 PM EST Emergency [facility] Emergency [address] [place] [phone] Chest pain, unspecified type (Primary Dx) Discharge [...] or any other concern. Get well soon! [facility] Primary Care & Specialty Office Locations [place] [phone] [place] [phone] [place] ([address]) [phone] [place] ([address]) [phone] Orthopedics: [phone] Thank you for coming to the [facility] Emergency Department today. Our entire team works [...] sent through Care Everywhere. * Chest Pain (Albanian) documented in this encounter Medications at Time [...] 1:30 PM EST Consult Thoracic Surgery - [place] [address] [phone] Estrella Galvan MD [address] [address] Scheduled Referrals Name Type Priority Associated Diagnoses [...] CHEMISTRY METHOD 06/28/2024 3:53 PM EST [facility] Blood Venous blood specimen / Unknown Venipuncture / Unknown 06/28/2024 2:43 PM EST 06/28/2024 3:10 PM EST Narrative [facility] - 06/28/2024 3:53 PM EST High levels of biotin in samples may falsely decrease hsTroponin values. ??Use caution when interpreting hsTroponin results in patients taking biotin who exhibit renal impairment (eGFR <60) or in patients taking more than 20 mg/day of biotin. Chu Small MD LAB BLOOD ORDERABLES Chiquita l Result Performing Organization Address [facility]/ZIP Co de Phone Number [facility] [address] [place] [address], [place] [phone] * ECG 12 lead (06/28/2024 2:40 PM EST) Ventricular Rate ECG 63 BPM GEMUSE Atrial Rate 63 BPM GEMUSE P-R Interval 134 ms GEMUSE QRS Duration 94 ms GEMUSE Q-T Interval 408 ms GEMUSE QTc 417 ms GEMUSE P Wave [place] 50 degrees GEMUSE R [place] 77 degrees GEMUSE T [place] 50 degrees GEMUSE ECG Interpretation Normal sinus rhythm Normal ECG When compared with ECG of 28-JUN-2024 12:27, (unconfirmed) No significant change was found Confirmed by Diogo HAYWOOD JAMES ([id number]) on 06/28/2024 6:39:11 PM GEMUSE 06/28/2024 2:40 PM EST 06/28/2024 6:39 PM EST Chu Small MD ECG ORDERABLES Final Res ult Performing Organization Address [facility] Co de Phone Number GEMUSE * (ABNORMAL) CBC auto differential (06/28/2024 1:36 PM EST) WBC 8.3 4.8 - 10.8 K/mcL LAB HEMETOLOGY METHOD 06/28/2024 2:41 PM EST [facility] RBC 5.00 4.50 - 5.50 M/mcL LAB HEMETOLOGY METHOD 06/28/2024 2:41 PM EST [facility] Hemoglobin 15.6 13.5 - 17.5 g/dL LAB HEMETOLOGY METHOD 06/28/2024 2:41 PM EST [facility] Hematocrit 45.4 42.0 - 54.0 % LAB HEMETOLOGY METHOD 06/28/2024 2:41 PM [facility] MCV 90.1 79.0 - 98.0 FL LAB HEMETOLOGY METHOD 06/28/2024 2:41 PM [facility] MCH 31.0 27.0 - 32.0 pcg LAB HEMETOLOGY METHOD 06/28/2024 2:41 PM [facility] MCHC 34.4 32.0 - 37.0 g/dL LAB HEMETOLOGY METHOD 06/28/2024 2:41 PM [facility] RDW 12.3 11.0 - 15.0 % LAB HEMETOLOGY METHOD 06/28/2024 2:41 PM [facility] Platelets 235 130 - 400 K/mcL LAB HEMETOLOGY METHOD 06/28/2024 2:41 PM [facility] MPV 11.5(H) 7.0 - 11.0 FL LAB HEMETOLOGY METHOD 06/28/2024 2:41 PM [facility] NRBC 0.0 <1.0 % LAB HEMETOLOGY METHOD 06/28/2024 2:41 PM [facility] NRBC Absolute 0.00 <0.10 K/mcL LAB HEMETOLOGY METHOD 06/28/2024 2:41 PM [facility] Neutrophils Relative 75.6 % LAB HEMETOLOGY METHOD 06/28/2024 2:41 PM [facility] Lymphocytes Relative 17.4 % LAB HEMETOLOGY METHOD 06/28/2024 2:41 PM [facility] Monocytes Relative 5.6 % LAB HEMETOLOGY METHOD 06/28/2024 2:41 PM [facility] Eosinophils Relative 0.4 % LAB HEMETOLOGY METHOD 06/28/2024 2:41 PM [facility] Basophils Relative 0.6 % LAB HEMETOLOGY METHOD 06/28/2024 2:41 PM [facility] Immature Granulocytes Relative 0.4 % LAB HEMETOLOGY METHOD 06/28/2024 2:41 PM EST [facility] Neutrophils Absolute 6.26 1.50 - 7.00 K/mcL LAB HEMETOLOGY METHOD 06/28/2024 2:41 PM [facility] Lymphocytes Absolute 1.44 1.00 - 5.00 K/mcL LAB HEMETOLOGY METHOD 06/28/2024 2:41 PM EST [facility] Monocytes Absolute 0.46 0.20 - 1.00 K/mcL LAB HEMETOLOGY METHOD 06/28/2024 2:41 PM EST [facility] Eosinophils Absolute 0.03 0.00 - 0.50 K/mcL LAB HEMETOLOGY METHOD 06/28/2024 2:41 PM EST [facility] Basophils Absolute 0.05 0.00 - 0.20 K/mcL LAB HEMETOLOGY METHOD 06/28/2024 2:41 PM EST [facility] Immature Granulocytes Absolute 0.03 0.00 - 0.03 K/mcL LAB HEMETOLOGY METHOD 06/28/2024 2:41 PM EST [facility] Blood Venous blood specimen / Unknown Venipuncture / Unknown 06/28/2024 1:36 PM EST 06/28/2024 2:04 PM EST us Chu Small MD LAB BLOOD ORDERABLES Chiquita garrett Result [facility] [address] [place] [address], * B-type natriuretic peptide (06/28/2024 1:36 PM EST) BNP <2 <=100 pcg/mL LAB CHEMISTRY METHOD 06/28/2024 2:50 PM EST [facility] Blood Venous blood specimen / Unknown Venipuncture / Unknown 06/28/2024 1:36 PM EST 06/28/2024 2:04 PM EST us Chu Small MD LAB BLOOD ORDERABLES Chiquita l Result Performing Organization Address [facility] Co de Phone Number [facility] [address] [place] [address], [place] [phone] * Magnesium (06/28/2024 1:36 PM EST) [facility] Magnesium 2.2 1.9 - 2.6 mg/dL LAB CHEMISTRY METHOD 06/28/2024 2:58 PM EST [facility] Comment:Hemolysis present Blood Venous blood specimen / Unknown Venipuncture / Unknown 06/28/2024 1:36 PM EST 06/28/2024 2:04 PM EST us Chu Small MD LAB BLOOD ORDERABLES Chiquita l Result Performing Organization Address [facility] de Phone Number [facility] [address] [place] [address], [place] [phone] * Lipase (06/28/2024 1:36 PM EST) [facility] Lipase 41 13 - 75 unit/L LAB CHEMISTRY METHOD 06/28/2024 2:58 PM EST [facility] Blood Venous blood specimen / Unknown Venipuncture / Unknown 06/28/2024 1:36 PM EST 06/28/2024 2:04 PM EST us Chu Small MD LAB BLOOD ORDERABLES Chiquita l Result Performing Organization Address [facility]/ZIP Co de Phone Number [facility] [address] [place] [address], [place] [phone] * (ABNORMAL) Comprehensive metabolic panel (06/28/2024 1:36 PM EST) [facility] Sodium 136 133 - 145 mmol/L LAB CHEMISTRY METHOD 06/28/2024 2:58 PM [facility] Potassium 4.2 3.5 - 5.5 mmol/L LAB CHEMISTRY METHOD 06/28/2024 2:58 PM [facility] Comment:Hemolysis present Chloride 102 96 - 110 mmol/L LAB CHEMISTRY METHOD 06/28/2024 2:58 PM [facility] CO2 25 21 - 32 mmol/L LAB CHEMISTRY METHOD 06/28/2024 2:58 PM [facility] Anion Gap 9 3 - 11 LAB CHEMISTRY METHOD 06/28/2024 2:58 PM [facility] Glucose 85 70 - 100 mg/dL LAB CHEMISTRY METHOD 06/28/2024 2:58 PM [facility] BUN 12 5 - 25 mg/dL LAB CHEMISTRY METHOD 06/28/2024 2:58 PM [facility] Creatinine 0.94 0.70 - 1.30 mg/dL LAB CHEMISTRY METHOD 06/28/2024 2:58 PM [facility] eGFR 106 >=60 mL/min/1. 73m2 LAB CHEMISTRY METHOD 06/28/2024 2:58 PM [facility] Comment:Calculation based on the??Chronic Kidney Disease Epidemiology Collaboration (CKD-EPI) equation refit??without adjustment for race. BUN/Creatinine Ratio 12.8 LAB CHEMISTRY METHOD 06/28/2024 2:58 PM [facility] Calcium 10.3 8.5 - 10.5 mg/dL LAB CHEMISTRY METHOD 06/28/2024 2:58 PM [facility] AST (SGOT) 25 10 - 42 unit/L LAB CHEMISTRY METHOD 06/28/2024 2:58 PM [facility] Comment:Hemolysis present ALT (SGPT) 41 10 - 60 unit/L LAB CHEMISTRY METHOD 06/28/2024 2:58 PM [facility] Alkaline Phosphatase 86 42 - 121 unit/L LAB CHEMISTRY METHOD 06/28/2024 2:58 PM EST [facility] Total Protein 8.3(H) 6.0 - 8.0 g/dL LAB CHEMISTRY METHOD 06/28/2024 2:58 PM EST [facility] Albumin 4.9 3.2 - 5.0 g/dL LAB CHEMISTRY METHOD 06/28/2024 2:58 PM EST [facility] Total Bilirubin 0.8 0.0 - 1.4 mg/dL LAB CHEMISTRY METHOD 06/28/2024 2:58 PM EST [facility] Blood Venous blood specimen / Unknown Venipuncture / Unknown 06/28/2024 1:36 PM EST 06/28/2024 2:04 PM EST Chu Small MD LAB BLOOD ORDERABLES Chiquita l Result [facility] [address] [place] [address], [place] [phone] * Troponin I high sensitivity (06/28/2024 1:36 PM EST) High Sensitivity Troponin I 4 <=79 ng/L LAB CHEMISTRY METHOD 06/28/2024 2:42 PM EST [facility] Blood Venous blood specimen / Unknown Venipuncture / Unknown 06/28/2024 1:36 PM EST 06/28/2024 2:04 PM EST Narrative [facility] - 06/28/2024 2:42 PM EST High levels of biotin in samples may falsely decrease hsTroponin values. ??Use caution when interpreting hsTroponin results in patients taking biotin who exhibit renal impairment (eGFR <60) or in patients taking more than 20 mg/day of biotin. Chu Small MD LAB BLOOD ORDERABLES Chiquita l Result [facility] [address] [place] [address], [place] [phone] * ECG 12 lead (06/28/2024 12:27 PM EST) Ventricular Rate ECG 65 BPM GEMUSE Atrial Rate 65 BPM GEMUSE P-R Interval 138 ms GEMUSE QRS Duration 100 ms GEMUSE Q-T Interval 398 ms GEMUSE QTc 413 ms GEMUSE P Wave [place] 75 degrees GEMUSE R [place] 87 degrees GEMUSE T [place] 56 degrees GEMUSE ECG Interpretation Normal sinus [...] Perez) documented in this encounter Care Teams Software Solutions Architect Relationship Specialty Start Date End Date Physician, Pcp Unknown PCP - General 06/28/24 documented as of this encounter
[2024-06-30 14:01] LABS: TSH reflex Free T4 1.14 uIU/mL (0.32-4.0); Vitamin D 25-OH Total 20.6 ng/mL (>30)
== END 2024-06-30 10:58 | disposition home or self-care (01) ==
LOC: HO.LAB 10:57
DX: Z00.00 Encounter for general adult medical examination without abnormal findings (principal); E78.5 Hyperlipidemia, unspecified; R07.9 Chest pain, unspecified; J43.9 Emphysema, unspecified; J98.4 Other disorders of lung; M85.571 Aneurysmal bone cyst, right ankle and foot; M85.572 Aneurysmal bone cyst, left ankle and foot; K13.0 Diseases of lips; F41.9 Anxiety disorder, unspecified; F17.219 Nicotine dependence, cigarettes, with unspecified nicotine-induced disorders; Z71.6 Tobacco abuse counseling
CPT/HCPCS: 36415; 80053; 80061; 81003; 82306; 84443; 85025; 96127

== ENCOUNTER 2024-07-14 09:45 | Outpatient (AMB) | payer BC, SELFPAY ==
--- NOTE | 2024-07-14 10:07 | MHC.PC.OV ---
Vital Signs 07/14/24 10:13 Height 5 ft 11 in Weight 181 lb 6 oz BMI 25.3 BP 112/72 Blood Pressure Location Rt brachial Position Sitting Pulse 77 Pulse Source Pulse Oximeter Temp 97.3 F Temp Source Temporal Artery Scan Pulse Oximetry (%) 98 Oxygen Delivery Method Room Air Intake Visit Reasons: annual Intake Note: Patient is here today for a physical. Director Apparel Required: No Chemical Production Technician: Not Required per policy Accompanied by: Self / Same As Patient Allergies No Known Allergies Allergy (Verified 07/14/24 10:20) Medication List - Last Reconciled 07/14/24 by JONATHAN Ramos hydroxyzine pamoate 25 mg PO BID PRN mupirocin 2% 1 appl topical BID nicotine (polacrilex) 4 mg buccal Q2H Tobacco use date assessed: 07/14/24 Dental Screening Dental Screen Date: 06/30/24 HPI annual HPI Details Dentist: up to date, next appt is in january Eye: up to date Snellen: Right: Left: Corrected vision:glasses/contacts STI screening: Colonoscopy: Pap Smer: PHQ-9: Flu: given in right arm COVID: x2 Tdap: up to date Diet: regular Exercise: no The patient is a 30 male was presenting for physical Reports that he met with thoracic on Friday and they told him the good news that his lung cyst was not concerning and did not warrant a biopsy He reports that he was also informed that both lungs were involved, so he had more than one cyst Reports that he has seen pulmonology on 07/26/24 Patient reports that he was called by the therapist but was unable to make an appointment Reports that a therapist asked him for a credit card over the phone and he did not feel comfortable Patient reports that a therapist wanted to do telehealth and he would rather see someone in person Patient reports that since the last time we spoke he has been paying close attention to his heartburn and intermittent chest pain He reports that his chest pain is directly related to his heartburn. Reports that if he eats and lie down to soon he gets the chest pain/heartburn Patient also like to be referred to a Dermatology for his dry lips. Reports that he used to see Dr. Ovalles but like to try somewhere else The patient would also like to try a medication for his heartburn He denies shortness of breath, chest pain, dizziness or heart palpitation Denies abdominal pain or change in bowel habits Denies any urinary symptoms PFSH Medical History (Updated 07/14/24 @ 10:57 by JONATHAN Ramos) Emphysema lung Nicotine dependence HLD (hyperlipidemia) Surgical History History of wisdom tooth extraction History of tonsillectomy History of foot surgery Family History Other Mental health disorder Substance use disorder Social History Housing: Condominium Alcohol intake: current Alcohol intake frequency: a few times a month Patient Tobacco Use Status: Former Tobacco user e-Cigarette/Vaping Use: Former Use Second Hand Smoke Exposure: Yes service: No Current occupational status: employed Current occupation: [employer] Cognitive needs: No Hearing needs: No Vision needs: Yes (Glasses) Questionnaire Thrive Questionnaire Date Thrive assessed: 06/30/24 I am a: Patient What is your living situation today?: I have a steady place to live Within the past 12 months, did the food you bought not last and you didn't have the money to get more?: Never true Within the past 12 months, did you worry whether your food would run out before you got money to buy more?: Never true Do you have trouble paying for medicines?: No Do you have trouble getting transportation to medical appointments?: No Do you have trouble paying your heating and electricity bill?: No Do you have trouble taking care of your child, family member or friend?: No Do you have trouble with day-to-day activities such as bathing, preparing meals, shopping, managing finances, etc.?: No Are you currently unemployed and looking for a job?: No Are you interested in more education?: No Please select the resources that you would like help with: None Currently or been in a relationship where the following occur: No concerns reported THRIVE Score: 0 NATALIA-7 AMB Questionnaire NATALIA-7 Date NATALIA - 7 assessed: 06/30/24 Source: Developed by Drs. Yanick Gudino, Tiff Allen, Toño Bobby and colleagues, with an educational kimmie from [employer]. Review of Systems Const Details: Denies chills, Denies fatigue, Denies fever(s), Denies headache(s) and Denies weakness HEENT Denies change in vision, Denies dizziness, Denies headache(s), Denies hearing loss, Denies nasal congestion, Denies sinus pain, Denies sinus pressure and Denies sore throat Card Denies chest pain, Denies lightheadedness, Denies dyspnea and Denies other (palpitations) Resp Denies cough, Denies dyspnea and Denies wheezing GI Denies abdominal pain, Denies melena, Denies hematochezia, Denies change in bowel habits, +dyspepsia with certain foods and Denies nausea Denies hematuria and Denies dysuria Musc Denies abnormal gait, Denies myalgias, Denies arthralgias, Denies numbness and Denies tingling Skin/Breast Denies rash, Denies unusual bruising and Denies wounds Neuro Denies abnormal gait, Denies dizziness, Denies headache(s), Denies memory loss, Denies numbness, Denies Sensory deficit (Neuro), Denies tingling and Denies weakness Psych Denies anxiety, Denies depression and Denies memory loss Endo Denies cold intolerance, Denies fatigue, Denies heat intolerance, Denies polydipsia and Denies polyuria Ollie/Lymph Denies easy bleeding and Denies easy bruising Aller/Immun Denies wheezing Physical exam (Primary Care) Vital Signs: Last Vital Signs Temp 97.3 F 07/14/24 10:13 Pulse 77 07/14/24 10:13 BP 112/72 07/14/24 10:13 Pulse Ox 98 07/14/24 10:13 Oxygen Delivery Method Room Air 07/14/24 10:13 BMI result Body Mass Index 25.3 Tobacco/Smoking Status: Tobacco use Status Tobacco use date assessed 07/14/24 07/14/24 10:08 Patient Tobacco Use Status Former Tobacco user 07/14/24 10:08 e-Cigarette/Vaping Use Former Use 07/14/24 10:08 Thrive Assessment: Date of Thrive Assessment Date Thrive assessed 06/30/24 07/14/24 10:08 Currently or been in a relationship where the following occur: No concerns reported Const Other: General: no acute distress, well developed, alert and awake Nutritional Appearance: well nourished Orientation/consciousness: patient oriented x3 [facility] Head: Yes normocephalic and Yes atraumatic Ears: hearing grossly normal bilaterally and TM's normal bilaterally General nose exam: Normal external nose present and Normal nares present Mouth: Normal oral and palatal mucosa present and moist mucous membranes Teeth and gingiva: dentition normal other: dry and craack lips-reports using hydrocortisone otc with positive effect. Reports that he use to see dermatology for this Throat: Yes oropharynx normal Eyes Pupils: Equal, round and reactive pupils present and Pupil accommodation reflex normal EOM: EOMs intact bilaterally Neck Neck: Yes normal visual inspection, Yes no lymphadenopathy and Yes trachea midline Thyroid: Thyroid normal Carotids: no bruits Lymphatic: no lymphadenopathy noted Chest Chest palpation & inspection: normal inspection of the chest Resp Effort & Inspection: normal respiratory effort Auscultation: clear to auscultation bilaterally Cardio Rate: regular rate Rhythm: regular rhythm Heart sounds: S1 normal heart sound present, S2 normal heart sound present, no gallops, no murmurs and no rubs Bruits: no abdominal aortic bruits and no carotid bruits GI Palpation (GI): No Abdominal aortic bruit present, Soft to palpation, nontender, No hepatosplenomegaly present and No Rebound tenderness present Auscultation: normal bowel sounds General: Yes no CVA tenderness Back/Spine/Pelvis Back: no CVA tenderness Cervical Spine: cervical ROM normal and No Cervical spine tenderness Thoracic/Lumbar Spine: thoraco-lumbar ROM normal, No pain with thoraco-lumbar ROM, No thoracic spinal tenderness and No lumbar spinal tenderness Skin General: warm and dry. Normal skin color. Normal skin turgor Lesions: no lesions Rashes: no rashes Trauma: no lacerations or abrasions Wounds: no wounds Nails: normal Neuro General: patient oriented x3, gait normal and CN's II-XI intact bilaterally Cranial nerves: Yes Equal, round and reactive pupils present Cognition (Neuro): normal cognition Gait exam (Neuro): Normal gait present Motor exam (neuro): 5/5 motor strength present throughout Sensory Exam: No Sensory deficit (Neuro) Deep tendon reflexes (DTR's): Right patellar reflex intensity grade: 2+ and Left patellar reflex intensity grade: 2+ Extrem General: Yes normal to inspection, No edema and No calf tenderness Psych Appearance: grossly normal Affect: normal affect Attitude: cooperative Thought process: Normal thought process present Office Procedures Flu Questionnaire Does the patient have a severe egg allergy?: No Does the patient have severe life threatening allergies?: No Does the patient have a fever or illness today?: No Has the patient ever had Guillain-[place] Syndrome?: No Has the patient ever had any past reaction to a flu shot?: No Immunizations Fluarix Triv [id number] (PF) 45 mcg (15 mcg x 3)/0.5 mL IM syringe Performing Provider: JONATHAN Ramos [place] [facility] [place] [facility] Administered by: Susan Chavez RN on 07/14/24 10:48 Dose Route Admin Location Dispensed Lot Number Expiration Date [facility] [place] Beverage Sales Consultant 0.5 mL IM Right Deltoid 0.5 mL [id number] 11/15/24 17692-160-12 Agency [employer] VIS Given Date VIS Provided VIS Publication Date 07/14/24 Single Vaccine 20 Eligibility Eligibility Date Funding Source Not [facility] Eligible 07/14/24 Private Coding Assessment & Plan Assessment & Plan Orders: Orders Comprehensive [place]. Panel Fast 3 Months E55.9 - Vitamin D deficiency, unspecified, E78.5 - Hyperlipidemia, unspecified, R12 - Heartburn UA CC w/rflx Micro + Cult 3 Months E55.9 - Vitamin D deficiency, unspecified, E78.5 - Hyperlipidemia, unspecified, R12 - Heartburn Complete Blood Count Auto Diff 3 Months E55.9 - Vitamin D deficiency, unspecified, E78.5 - Hyperlipidemia, unspecified, R12 - Heartburn Influenza [id number] Immunization Today Z23 - Encounter for immunization Lipid Panel 3 Months E55.9 - Vitamin D deficiency, unspecified, E78.5 - Hyperlipidemia, unspecified, R12 - Heartburn Vitamin D 25-OH Total 3 Months E55.9 - Vitamin D deficiency, unspecified, E78.5 - Hyperlipidemia, unspecified, R12 - Heartburn Medications: New omeprazole 20 mg PO DAILY 30 caps 3RF cholecalciferol (vitamin D3) 25 mcg PO DAILY 30 caps 3RF atorvastatin 10 mg PO BEDTIME 30 tabs 3RF
[2024-07-14 10:13] VITALS: BP 112/72; PULSE 77; TEMP 36.3; O2SAT 98; BMI 25.3
--- OUTSIDE RECORDS SUMMARY | 2024-07-14 11:22 | XMS_ITS | Clinical Summary ---
Author Organization [facility] Address [address] [place] [address] Phone Care Team Providers Care Industrial Engineering Director Name Role Phone Physician, Pcp Unknown Primary Care Provider Kaylin vailable Allergies Active Allergy Reactions Criticality Noted Date Comments Nickel 05/18/2020 Other Reaction(s): Rash/Dermatitis silver Medications nicotine polacrilex (NICORETTE) [address] 1 each (2 mg total) into mouth between cheek and gum every 2 (two) hours if needed for smoking cessation for up to 4 days. 48 each 06/28/19 25 Active lactulose (CHRONULAC) solution Take 30 mL by mouth 2 times daily. 03/04/20 025 Discontinued psyllium (Daily Fiber, psyllium-aspar t,) 3.4 gram packet Take 1 Packet by mouth daily. 03/04/20 025 Discontinued polyethylene glycol (MIRALAX) 17 gram packet Take 1 Packet by mouth daily. 03/04/20 025 Discontinued simethicone (MYLICON) 125 mg chewable tablet Take 1 Tablet by mouth every 6 hours as needed for Flatulence. 03/04/20 025 Discontinued polyethylene glycol (MIRALAX) 17 gram packet Take 1 Packet by mouth daily as needed (constipation ). 07/30/19 025 Discontinued hydrOXYzine pamoate (VISTARIL) 25 mg capsule Take 1 capsule (25 mg total) by mouth every 6 (six) hours if needed for anxiety. 20 capsule 06/28/19 025 Discontinued Active Problems Problem Noted Date Diagnosed Date Lung cyst 07/12/2024 Assessment & Plan (07/12/2024 2:32 PM EST): 39-year-old male who presented to the ED with chest pain and shortness of breath and found on CTA to have paraseptal emphysematous changes/lung cysts in particular on the right side. There is no mass here or anything that I am concerned about and I discussed the findings on his CAT scan in detail with him which he seemed understand. He is going to see a bracelet and brooch maker and tells me that he has stopped vaping and smoking which I think is great and probably will help with his overall health. However at any follow-up is needed with me or any follow-up imaging is needed necessarily. Hyperlipidemia LDL goal <160 05/18/2024 Erectile dysfunction 09/24/2022 Herpes simplex type 1 infection 08/05/2018 Eczema 07/14/2018 History of drug abuse in remission 07/14/2018 Overview (05/18/2024): Clean & sober since February 2016. Clean slate for Dextrys. 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 [address] [place] [address] Discharge Disposition: Home or Self Care from [...] History of drug abuse in rem ission ([facility]) 07/14/2018 DX:History of drug abuse in remission ([facility]); COMMENT: Clean & sober since February 2016. Clean slate for Dextrys. 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 Testing was negative for underlying seizure disorder Tobacco use 08/05/2018 DX:Tobacco use Hyperlipidemia LDL goal <160 DX: Hyperlipidemia LDL goal <160 Abdominal pain DX:Abdominal dilia n Constipation DX:Constipation Straining with stools DX:Straini ng with stools GERD (gastroesophageal reflux disease) Seizures ([facility]) 07/12/2024 Asbestos exposure 07/12/2024 Lung disease due to breathin g vapors or fumes ([facility]) 07/12/2024 diesel fumes Family History Medical History Relation Name Comments Hyperlipidemia Father Hypertension Father eczema COPD Maternal Grandfather Cancer Maternal Grandfather No Known Problems Maternal Grandmother Asthma Mother Stroke Mother No Known Problems Paternal Grandfather Alcohol abuse Paternal Grandmother Ovarian cancer Sister Relation Name Status Comments Father Alive Maternal Grandfather Maternal Grandmother Alive Mother Alive Paternal Grandfather Paternal Grandmother Sister Alive Social History Tobacco Use Types Packs/Day Years Used Date Smoking Tobacco: Every Day Cigarettes 0.8 25.2 Started: 05/19/1999 Smokeless Tobacco: Never Alcohol Use [...] Sign Reading Time Taken Comments Blood Pressure 141/77 07/12/2024 1:31 PM EST Pulse 77 07/12/2024 1:31 PM EST Temperature 36.7 ??C (98.1 ??F) 07/12/2024 1:31 PM ES T Respiratory Rate 16 06/28/2024 6:07 PM EST Oxygen Saturation 99% 07/12/2024 1:31 PM EST Inhaled Oxygen Concentration - - Weight 81.5 kg (179 lb 9.6 oz) 07/12/2024 1:31 P M EST Height 180.3 cm (5' 11 ) 07/12/2024 1:31 PM EST Body Mass Index 25.05 07/12/2024 1:31 PM EST Plan of Treatment Health Maintenance Due Date Last Done Comments Hepatitis A Vaccines (1 of 2 - Risk 2-dose series) 02/21/2004 Pneumococcal Vaccine: Pediat rics (0 to 5 [...] ECG 12-LEAD STAT 06/26/2024 7:45 PM EST HEPATITIS C SCREENING Routine 09/20/2022 HIV SCREENING Routine 09/20/2022 LIPID PANEL Routine [...] document has been electronically signed by: Pepito Srivasatva MD on 06/28/2024 18:21:17 us Jacques [address]MA IMG CT PROCEDURES Final Resu lt * Troponin I high sensitivity (06/28/2024 2:43 PM EST) Only the most recent of4 resultswithin the time period is included. High Sensitivity Troponin I 4 <=79 ng/L LAB CHEMISTRY METHOD 06/28/2024 3:53 PM EST [facility] Blood Venous blood specimen / Unknown Venipuncture / Unknown 06/28/2024 2:43 PM EST 06/28/2024 3:10 PM EST Narrative [facility] - 06/28/2024 3:53 PM EST High levels of biotin in samples may falsely decrease hsTroponin values. ??Use caution when interpreting hsTroponin results in patients taking biotin who exhibit renal impairment (eGFR <60) or in patients taking more than 20 mg/day of biotin. us Chu Small MD LAB BLOOD ORDERABLES Chiquita tami Result [facility] [address] [place] [address], * ECG 12 lead (06/28/2024 2:40 PM EST) Only the most recent of4 resultswithin the time period is included. Ventricular Rate ECG 63 BPM GEMUSE Atrial Rate 63 BPM GEMUSE P-R Interval 134 ms GEMUSE QRS Duration 94 ms GEMUSE Q-T Interval 408 ms GEMUSE QTc 417 ms GEMUSE P Wave [place] 50 degrees GEMUSE R [place] 77 degrees GEMUSE T [place] 50 degrees GEMUSE ECG Interpretation Normal sinus [...] the time period is included. Pathologist [facility] WBC 8.3 4.8 - 10.8 K/mcL LAB HEMETOLOGY METHOD 06/28/2024 2:41 PM EST [facility] RBC 5.00 4.50 - 5.50 M/mcL LAB HEMETOLOGY METHOD 06/28/2024 2:41 PM EST [facility] Hemoglobin 15.6 13.5 - 17.5 g/dL LAB HEMETOLOGY METHOD 06/28/2024 2:41 PM EST [facility] Hematocrit 45.4 42.0 - 54.0 % LAB HEMETOLOGY METHOD 06/28/2024 2:41 PM EST [facility] MCV 90.1 79.0 - 98.0 FL LAB HEMETOLOGY METHOD 06/28/2024 2:[address] [facility] MCH 31.0 27.0 - 32.0 pcg LAB HEMETOLOGY METHOD 06/28/2024 2:[address] [facility] MCHC 34.4 32.0 - 37.0 g/dL LAB HEMETOLOGY METHOD 06/28/2024 2:[address] [facility] RDW 12.3 11.0 - 15.0 % LAB HEMETOLOGY METHOD 06/28/2024 2:[address] [facility] Platelets 235 130 - 400 K/mcL LAB HEMETOLOGY METHOD 06/28/2024 2:[address] [facility] MPV 11.5(H) 7.0 - 11.0 FL LAB HEMETOLOGY METHOD 06/28/2024 2:[address] [facility] NRBC 0.0 <1.0 % LAB HEMETOLOGY METHOD 06/28/2024 2:[address] [facility] NRBC Absolute 0.00 <0.10 K/mcL LAB HEMETOLOGY METHOD 06/28/2024 2:[address] [facility] Neutrophils Relative 75.6 % LAB HEMETOLOGY METHOD 06/28/2024 2:[address] [facility] Lymphocytes Relative 17.4 % LAB HEMETOLOGY METHOD 06/28/2024 2:[address] [facility] Monocytes Relative 5.6 % LAB HEMETOLOGY METHOD 06/28/2024 2:[address] [facility] Eosinophils Relative 0.4 % LAB HEMETOLOGY METHOD 06/28/2024 2:[address] [facility] Basophils Relative 0.6 % LAB HEMETOLOGY METHOD 06/28/2024 2:[address] [facility] Immature Granulocytes Relative 0.4 % LAB HEMETOLOGY METHOD 06/28/2024 2:41 PM EST [facility] Neutrophils Absolute 6.26 1.50 - 7.00 K/mcL LAB HEMETOLOGY METHOD 06/28/2024 2:41 PM EST [facility] Lymphocytes Absolute 1.44 1.00 - 5.00 K/mcL LAB HEMETOLOGY METHOD 06/28/2024 2:41 PM EST [facility] Monocytes Absolute 0.46 0.20 - 1.00 K/mcL LAB HEMETOLOGY METHOD 06/28/2024 2:41 PM EST [facility] Eosinophils Absolute 0.03 0.00 - 0.50 K/mcL LAB HEMETOLOGY METHOD 06/28/2024 2:41 PM EST [facility] Basophils Absolute 0.05 0.00 - 0.20 K/mcL LAB HEMETOLOGY METHOD 06/28/2024 2:[address] [facility] Immature Granulocytes Absolute 0.03 0.00 - 0.03 K/mcL LAB HEMETOLOGY METHOD 06/28/2024 2:41 PM EST [facility] Blood Venous blood specimen / Unknown Venipuncture / Unknown 06/28/2024 1:36 PM EST 06/28/2024 2:04 PM EST us Chu Small MD LAB BLOOD ORDERABLES Chiquita l Result [facility] [address] [place] [address], * B-type natriuretic peptide (06/28/2024 1:36 PM EST) Only the most recent of2 resultswithin the time period is included. BNP <2 <=100 pcg/mL LAB CHEMISTRY METHOD 06/28/2024 2:50 PM EST [facility] Blood Venous blood specimen / Unknown Venipuncture / Unknown 06/28/2024 1:36 PM EST 06/28/2024 2:04 PM EST us Chu Small MD LAB BLOOD ORDERABLES Chiquita l Result Performing Organization Address City/[facility]/ZIP Co de Phone Number [facility] [address] [place] [address], [place] [phone] * Magnesium (06/28/2024 1:36 PM EST) Only the most recent of2 resultswithin the time period is included. Magnesium 2.2 1.9 - 2.6 mg/dL LAB CHEMISTRY METHOD 06/28/2024 2:58 PM EST [facility] Comment:Hemolysis present Blood Venous blood specimen / Unknown Venipuncture / Unknown 06/28/2024 1:36 PM EST 06/28/2024 2:04 PM EST us Chu Small MD LAB BLOOD ORDERABLES Chiquita l Result Performing Organization Address [facility] Co de Phone Number [facility] [address] [place] [address], [place] [phone] * Lipase (06/28/2024 1:36 PM EST) Only the most recent of2 resultswithin the time period is included. Lipase 41 13 - 75 unit/L LAB CHEMISTRY METHOD 06/28/2024 2:58 PM EST [facility] Blood Venous blood specimen / Unknown Venipuncture / Unknown 06/28/2024 1:36 PM EST 06/28/2024 2:04 PM EST us Chu Small MD LAB BLOOD ORDERABLES Chiquita l Result Performing Organization Address City/[facility]/ZIP Co de Phone Number [facility] [address] [place] [address], [place] [phone] * (ABNORMAL) Comprehensive metabolic panel (06/28/2024 1:36 PM EST) Only the most recent of2 resultswithin the time period is included. Sodium 136 133 - 145 mmol/L LAB CHEMISTRY METHOD 06/28/2024 2:[address] [facility] Potassium 4.2 3.5 - 5.5 mmol/L LAB CHEMISTRY METHOD 06/28/2024 2:[address] [facility] Comment:Hemolysis present Chloride 102 96 - 110 mmol/L LAB CHEMISTRY METHOD 06/28/2024 2:[address] [facility] CO2 25 21 - 32 mmol/L LAB CHEMISTRY METHOD 06/28/2024 2:[address] [facility] Anion Gap 9 3 - 11 LAB CHEMISTRY METHOD 06/28/2024 2:[address] [facility] Glucose 85 70 - 100 mg/dL LAB CHEMISTRY METHOD 06/28/2024 2:[address] [facility] BUN 12 5 - 25 mg/dL LAB CHEMISTRY METHOD 06/28/2024 2:[address] [facility] Creatinine 0.94 0.70 - 1.30 mg/dL LAB CHEMISTRY METHOD 06/28/2024 2:[address] [facility] eGFR 106 >=60 mL/min/1. 73m2 LAB CHEMISTRY METHOD 06/28/2024 2:[address] [facility] Comment:Calculation based on the??Chronic Kidney Disease Epidemiology Collaboration (CKD-EPI) equation refit??without adjustment for race. BUN/Creatinine Ratio 12.8 LAB CHEMISTRY METHOD 06/28/2024 2:[address] [facility] Calcium 10.3 8.5 - 10.5 mg/dL LAB CHEMISTRY METHOD 06/28/2024 2:[address] [facility] AST (SGOT) 25 10 - 42 unit/L LAB CHEMISTRY METHOD 06/28/2024 2:[address] [facility] Comment:Hemolysis present ALT (SGPT) 41 10 - 60 unit/L LAB CHEMISTRY METHOD 06/28/2024 2:58 PM EST [facility] Alkaline Phosphatase 86 42 - 121 unit/L LAB CHEMISTRY METHOD 06/28/2024 2:58 PM EST [facility] Total Protein 8.3(H) 6.0 - 8.0 g/dL LAB CHEMISTRY METHOD 06/28/2024 2:58 PM EST [facility] Albumin 4.9 3.2 - 5.0 g/dL LAB CHEMISTRY METHOD 06/28/2024 2:58 PM EST [facility] Total Bilirubin 0.8 0.0 - 1.4 mg/dL LAB CHEMISTRY METHOD 06/28/2024 2:58 PM EST [facility] Blood Venous blood specimen / Unknown Venipuncture / Unknown 06/28/2024 1:36 PM EST 06/28/2024 2:04 PM EST us Chu Small MD LAB BLOOD ORDERABLES Chiquita l Result [facility] [address] [place] [address], [place] [phone] * XR Chest 2 Views (06/26/2024 8:00 [...] Signed Date: 06/27/2024 07:18 ET Workstation ID: [id number] Transcribed By: Self Edit Transcribed Date: 06/27/2024 [...] Signed Date: 06/27/2024 07:18 ET Workstation ID: [id number] Transcribed By: Self Edit Transcribed Date: 06/27/2024 07:17 ET us Mariam Woo DO IMG XR PROCEDURES Final R esult * (ABNORMAL) D-dimer, quantitative (06/26/2024 7:56 PM EST) D-Dimer, Quant (D-DU) 252(H) <=230 ng/mL DDU LAB COAGULATION METHOD 06/26/2024 8:53 PM EST [facility] Blood Venous blood specimen / Unknown Venipuncture / Unknown 06/26/2024 7:56 PM EST 06/26/2024 8:30 PM EST [facility] - 06/26/2024 8:53 PM EST D-Dimer <230 ng/mL (D-Dimer units) is the threshold for exclusion of DVT/PE. D-Dimer may be elevated in: Critically ill, severely infected, trauma patients, DIC, acute CVA, acute VA, unstable angina, AF, old age, , and smoking. D-Dimer may be decreased with: Initiation of heparin therapy and oral anticoagulants. Mariam Lamont Miles Chilo DO LAB BLOOD ORDERABLES Chiquita l Result [facility] [address] [place] [address], [place] [phone] * HIV Screening (09/20/2022) HIV Screening abstracted Historical Provider MD HEALTH MAINTENANCE Final Result * Hepatitis C Screening (09/20/2022) Hepatitis C Screening abstracted Historical Provider MD HEALTH MAINTENANCE Final Result * (ABNORMAL) Lipid panel (09/20/2022) LDL/HDL Ratio 4 0 - 4 Triglycerides 95 0 - 150 mg/dL Cholesterol 248(A) 0 - 200 mg/dL HDL 57 >=40 mg/dL LDL Cholesterol 172(A) 0 - 100 mg/dL Blood Venous blood specimen / Unknown Historical Provider MD LAB BLOOD ORDERABLES Chiquita l Result from Last 3 Months or Most Recently Relevant to Health Maintenance Insurance [facility]) Care Teams Industrial Engineering Director Relationship Specialty Start Date End Date Physician, Pcp Unknown PCP - General 06/28/24
--- OUTSIDE RECORDS SUMMARY | 2024-07-14 11:22 | XMS_ITS | Encounter Summary ---
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 Encounter Details Date Type Department Care Team (Late st Contact Info) Description 06/28/2024 1:23 PM EST - 06/28/2024 7:13 PM EST Emergency [facility] Emergency [address] [place] [id number] Chest pain, unspecified type (Primary Dx) Discharge [...] or any other concern. Get well soon! [facility] Primary Care & Specialty Office Locations [place] [phone] [place] [phone] [place] ([address]) [phone] [place] ([address]) [phone] Orthopedics: [phone] Thank you for coming to the [facility] Emergency Department today. Our entire team [...] sent through Care Everywhere. * Chest Pain (Icelandic) documented in this encounter Medications at Time of Discharge nicotine polacrilex (NICORETTE) [address] 1 each (2 mg total) into mouth between cheek and gum every 2 (two) hours if needed for smoking cessation for up to 4 days. 48 each 06/28/2024 hydrOXYzine pamoate (VISTARIL) 25 mg capsule Take 1 capsule (25 mg total) by mouth every 6 (six) hours if needed for anxiety. 20 capsule 06/28/2024 5 lactulose (CHRONULAC) solution Take 30 mL by mouth 2 times daily. 03/04/2023 5 polyethylene glycol (MIRALAX) 17 gram packet Take 1 Packet by mouth daily. 03/04/2023 5 polyethylene glycol (MIRALAX) 17 gram packet Take 1 Packet by mouth daily as needed (constipation). 07/29/2022 5 psyllium (Daily Fiber, psyllium-aspart, ) 3.4 gram packet Take 1 Packet by mouth daily. 03/04/2023 5 simethicone (MYLICON) 125 mg chewable tablet Take 1 Tablet by mouth every 6 hours as needed for Flatulence. 03/04/2023 5 documented as of this encounter Ordered Prescriptions [...] months ago Seen on sat for same * MINERVA Chawla - 06/28/2024 12:21 PM EST Images from the original note were not included. [facility] Emergency Department Encounter Note Patient Name: Aguilar Carrasquillo Initial Evaluation: 06/28/2024 : 1985 Patient's PCP: Pcp Unknown Physician Emergency Provider: MINERVA Powell Chief Complaint Patient presents with Chest Pain Patient reports chest pain since Friday. History of Present Illness HPI: 39-year-old male presents for evaluation of chest pain. Patient states symptoms have been going on for 2 months. He reports they have been waxing and waning without any aggravating or alleviating factors. He reports that is typically sharp, left-sided and nonradiating. He does report associated diaphoresis when this occurs. He does also report mild shortness of breath. He denies any fevers or chills. Of note, when symptoms first began, he was being evaluated for cyst on his feet and when he hadone of them aspirated he had a vagal episode and syncopized. Since that time he is status post bilateral foot surgery which occurred approximate 2 weeks ago. He does report being increasingly sedentary. Patient states that he was seen in emergency department on June 26 however due to the weatherand prolonged weights, the patient left without further evaluation. At that time he does report having elevated D-dimer but did not stay for any additional workup. Currently the patient is asymptomatic. History provided by: Significant other and patient helper animal laboratory used: No ROS: Review of Systems Constitutional: Negative for chills and fever. Respiratory: Positive for shortness of breath. Cardiovascular: Positive for chest pain. Musculoskeletal: Negative for back pain. Skin: Negative for rash. Neurological: Negative for weakness. Psychiatric/Behavioral: Negative for self-injury. I have performed a ROS with the pertinent positives and negatives documented in the history of present illness. 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 Clean slate for [employer]. 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 Testing was negative for underlying seizure disorder Hyperlipidemia LDL goal <160 DX:Hyperlipidemia LDL goal <160 Straining with stools DX:Straining with stools Tobacco use 08/05/2018 DX:Tobacco use Past Surgical History: Past Surgical History: Procedure Laterality Date TONSILLECTOMY Bilateral 2007 PROCEDURE: HISTORICAL TONSILLECTOMY WISDOM TOOTH EXTRACTION Bilateral 1999 PROCEDURE: HISTORICAL WISDOM TEETH EXTRACTION Medications: Discharge Medication List as of 06/28/2024 6:50 PM START taking these medications Details hydrOXYzine pamoate (VISTARIL) 25 mg capsule Take 1 capsule (25 mg total) by mouth every 6 (six) hours if needed for anxiety., Starting 06/28/2024, Normal nicotine polacrilex (NICORETTE) [address] 1 each (2 mg total) into mouth between cheek and gumevery 2 (two) hours if needed for smoking cessation for up to 4 days., Starting Fri06/28/2024, Until Fri07/02/2024 at 2359, Normal CONTINUE these medications which have NOT CHANGED Details lactulose (CHRONULAC) solution Take 30 mL by mouth 2 times daily., Historical Med !! polyethylene glycol (MIRALAX) 17 gram packet Take 1 Packet by mouth daily., Historical Med !! polyethylene glycol (MIRALAX) 17 gram packet Take 1 Packet by mouth daily as needed (constipation)., Historical Med psyllium (Daily Fiber, psyllium-aspart,) 3.4 gram packet Take 1 Packet by mouth daily., Historical Med simethicone (MYLICON) 125 mg chewable tablet Take 1 Tablet by mouth every 6 hours as needed for Flatulence., Historical Med !! - Potential duplicate medications found. Please discuss with provider. Allergies: Nickel Social and Family History: Social History Tobacco Use Smoking status: Every Day Current packs/day: 0.75 Average packs/day: 0.8 packs/day for 25.1 years (18.8 ttl pk-yrs) Types: Cigarettes Start date: 05/19/1999 Smokeless tobacco: Never Substance Use Topics Alcohol use: No Family History Problem Relation Name Age of Onset Asthma Mother Hypertension Father eczema No Known Problems Sister No Known Problems Maternal Grandmother No Known Problems Maternal Grandfather Alcohol abuse Paternal Grandmother No Known Problems Paternal Grandfather Physical Exam ED Triage Vitals [06/28/24 1231] Temp Heart Rate Resp BP 36.6 ??C (97.9 ??F) 81 16 (!) 146/77 SpO2 Temp Source Heart Rate Source Patient Position 100 % Oral -- Sitting BP Location FiO2 (%) Right arm -- Physical Exam Vitals and nursing note reviewed. Constitutional: General: He is not in acute distress. HENT: Head: Normocephalic. Eyes: Pupils: Pupils are equal, round, and reactive to light. Cardiovascular: Rate and Rhythm: Normal rate and regular rhythm. Pulmonary: Effort: No respiratory distress. Breath sounds: Normal breath sounds. No wheezing. Abdominal: General: Bowel sounds are normal. Palpations: Abdomen is soft. Tenderness: There is no abdominal tenderness. Skin: General: Skin is warm and dry. Neurological: Mental Status: He is alert and oriented to person, place, and time. Psychiatric: Mood and Affect: Mood normal. ED Results: ED Labs: Labs Reviewed COMPREHENSIVE METABOLIC PANEL - Abnormal Result Value Sodium 136 Potassium 4.2 Chloride 102 CO2 25 Anion Gap 9 Glucose 85 BUN 12 Creatinine 0.94 eGFR 106 BUN/Creatinine Ratio 12.8 Calcium 10.3 AST (SGOT) 25 ALT (SGPT) 41 Alkaline Phosphatase 86 Total Protein 8.3 (*) Albumin 4.9 Total Bilirubin 0.8 CBC WITH AUTO DIFFERENTIAL - Abnormal WBC 8.3 RBC 5.00 Hemoglobin 15.6 Hematocrit 45.4 MCV 90.1 MCH 31.0 MCHC 34.4 RDW 12.3 Platelets 235 MPV 11.5 (*) NRBC 0.0 NRBC Absolute 0.00 Neutrophils Relative 75.6 Lymphocytes Relative 17.4 Monocytes Relative 5.6 Eosinophils Relative 0.4 Basophils Relative 0.6 Immature Granulocytes Relative 0.4 Neutrophils Absolute 6.26 Lymphocytes Absolute 1.44 Monocytes Absolute 0.46 Eosinophils Absolute 0.03 Basophils Absolute 0.05 Immature Granulocytes Absolute 0.03 TROPONIN I HIGH SENSITIVITY - Normal High Sensitivity Troponin I 4 Narrative: High levels of biotin in samples may falsely decrease hsTroponin values. Use caution when interpreting hsTroponin results in patients taking biotin who exhibit renal impairment (eGFR <60) or in patients taking more than 20 mg/day of biotin. TROPONIN I HIGH SENSITIVITY - Normal High Sensitivity Troponin I 4 Narrative: High levels of biotin in samples may falsely decrease hsTroponin values. Use caution when interpreting hsTroponin results in patients taking biotin who exhibit renal impairment (eGFR <60) or in patients taking more than 20 mg/day of biotin. LIPASE - Normal Lipase 41 MAGNESIUM - Normal Magnesium 2.2 B-TYPE NATRIURETIC PEPTIDE - Normal BNP <2 CBC AND DIFFERENTIAL Narrative: The following orders were created for panel order CBC and differential. Procedure Abnormality Status --------- ------ CBC auto differential[[id number]] Abnormal Final result Please view results for these tests on the individual orders. ED EKG: Encounter Date: 06/28/24 ECG 12 lead Result Value Ventricular Rate ECG 63 Atrial Rate 63 P-R Interval 134 QRS Duration 94 Q-T Interval 408 QTc 417 P Wave [place] 50 R [place] 77 T [place] 50 ECG Interpretation Normal sinus rhythm Normal ECG When compared with ECG of 28-JUN-2024 12:27, (unconfirmed) No significant change was found Confirmed by Diogo HAYWOOD JAMES ([id number]) on 06/28/2024 6:39:11 PM *Note: Due to a large number of results and/or encounters for the requested time period, some results have not been displayed. A complete set of results can be found in Results Review. ED Radiology: CT Angio Chest wo and/or w Contrast Final Result Impression: Normal CTA angiography of the aorta. NEGATIVE for pulmonary embolus. There is paraseptal pulmonary emphysema. No infiltrates or abnormal alveolar opacities. No pneumothorax. This document has been electronically signed by: Pepito Srivastava MD on 06/28/2024 18:21:17 The laboratory results, imaging results and other diagnostic exam results related to this ED encounter were reviewed in the EMR. ED Procedures: Procedures ED Administered Mediations: Medications sodium chloride 0.9 % flush 10 mL (10 mL intravenous Given 06/28/241733) iopamidoL (ISOVUE-370) 370 mg iodine /mL (76 %) injection 100 mL (100 mL intravenous Given 06/28/24 173) hydrOXYzine pamoate (VISTARIL) capsule 25 mg (25 mg oral Given 06/28/24 1905) ED Pre-Disposition Vitals: Vitals: 06/28/24 1850 BP: Pulse: 89 Resp: Temp: SpO2: 100% Differential Diagnosis PE Arrhythmia Pneumonia Palpitations ACS Medical Decision Making, ED Course Medical Decision Making 39-year-old male who has a history of hyperlipidemia, presents with intermittent episodes of chest pain. Patient seen on June 26, had negative workup at that time except for lightly elevated D-dimer of 252. Currently the patient is asymptomatic. Repeat labs. CTA of the chest. Patient is agreeable. Amount and/or Complexity of Data Reviewed External Data Reviewed: labs. Labs: ordered. Radiology: ordered. ECG/medicine tests: ordered. Please see ED Course below for updates regarding ED results and course of the ED visit. ED Course: ED Course as of 06/28/24 2332 Mon Jun 28, 2024 1746 Patient resting comfortably at this time without any chest pain. Patient just went over to CT at this time. [JS] 1853 CT results returned, no acute process. Incidental finding of right pleural cyst. This was reviewed with the patient and his family member at the bedside. In addition, patient has emphysematous changes likely due to his long history of tobacco use as well as vaping. I have had a discussion withthe patient regarding cessation of vaping and he would like to work at this. He is requesting nicotine gum. Unclear etiology for patient's symptoms at this time. He does not have any evidence of hypoxia, no unstable vital signs, and ambulatory oxygen saturation is 100% on room air without any dyspnea or tachypnea. I have discussed with the patient regarding additional causes such as dyspepsia, anxiety, or musculoskeletal. He is willing to try hydroxyzine, first dose will be given now. Patient expresses understanding of all discharge instructions and has no further questions at this time. Patient has a PCP appointment scheduled in 2 days. [JS] ED Course User Index [JS] MINERVA Chawla Clinical Impressions as of 06/28/242331 Chest pain, unspecified type ED Prescriptions: ED Prescriptions Medication Sig Dispense Start Date End Date Auth. Provider hydrOXYzine pamoate (VISTARIL) 25 mg capsule Take 1 capsule (25 mg total) by mouth every 6 (six) hours if needed for anxiety. 20 capsule 06/28/2024 -- MINERVA Chawla nicotine polacrilex (NICORETTE) [address] 1 each (2 mg total) into mouth between cheek and gumevery 2 (two) hours if needed for smoking cessation for up to 4 days. 48 each 06/28/2024 07/02/2024 MINERVA Chawla Disposition: Discharge Condition: Stable Diagnosis / Impression: Final diagnoses: [R07.9] Chest pain, unspecified type Provider Attestation Electronically signed by MAXIM Powell PA 06/28/24 160 MINERVA Chawal 06/28/242332 Cosigned by Mauricio Iglesias DO at 07/01/2024 3:46 PM EST documented in this encounter Plan of Treatment Scheduled Referrals Name Type Priority Associated Diagnoses [...] Srivastava MD on 06/28/2024 18:21:[address] PROCEDURES Final Resu lt * Troponin I high sensitivity (06/28/2024 2:43 PM EST) High Sensitivity Troponin I 4 <=79 ng/L LAB CHEMISTRY METHOD 06/28/2024 3:53 PM EST [facility] Blood Venous blood specimen / Unknown Venipuncture / Unknown 06/28/2024 2:43 PM EST 06/28/2024 3:10 PM EST Narrative [facility] - 06/28/2024 3:53 PM EST High levels of biotin in samples may falsely decrease hsTroponin values. ??Use caution when interpreting hsTroponin results in patients taking biotin who exhibit renal impairment (eGFR <60) or in patients taking more than 20 mg/day of biotin. Chu Small MD LAB BLOOD ORDERABLES Chiquita l Result Performing Organization Address [facility]/ZIP Co de Phone Number [facility] [address] [place] [address], [place] [phone] * ECG 12 lead (06/28/2024 2:40 PM EST) Ventricular Rate ECG 63 BPM GEMUSE Atrial Rate 63 BPM GEMUSE P-R Interval 134 ms GEMUSE QRS Duration 94 ms GEMUSE Q-T Interval 408 ms GEMUSE QTc 417 ms GEMUSE P Wave [place] 50 degrees GEMUSE R [place] 77 degrees GEMUSE T [place] 50 degrees GEMUSE ECG Interpretation Normal sinus rhythm Normal ECG When compared with ECG of 28-JUN-2024 12:27, (unconfirmed) No significant change was found Confirmed by Diogo HAYWOOD JAMES ([id number]) on 06/28/2024 6:39:11 PM GEMUSE 06/28/2024 2:40 PM EST 06/28/2024 6:39 PM EST Chu Small MD ECG ORDERABLES Final Res ult Performing Organization Address City/[facility]/ZIP Co de Phone Number GEMUSE * (ABNORMAL) CBC auto differential (06/28/2024 1:36 PM EST) Pathologist [facility] WBC 8.3 4.8 - 10.8 K/mcL LAB HEMETOLOGY METHOD 06/28/2024 2:41 PM [facility] RBC 5.00 4.50 - 5.50 M/mcL LAB HEMETOLOGY METHOD 06/28/2024 2:41 PM [facility] Hemoglobin 15.6 13.5 - 17.5 g/dL LAB HEMETOLOGY METHOD 06/28/2024 2:41 PM [facility] Hematocrit 45.4 42.0 - 54.0 [...] 2:41 PM [facility] Neutrophils Absolute 6.26 1.50 - 7.00 K/mcL LAB HEMETOLOGY METHOD 06/28/2024 2:41 PM [facility] Lymphocytes Absolute 1.44 1.00 - 5.00 K/mcL LAB HEMETOLOGY METHOD 06/28/2024 2:41 PM [facility] Monocytes Absolute 0.46 0.20 - 1.00 K/mcL LAB HEMETOLOGY METHOD 06/28/2024 2:41 PM [facility] Eosinophils Absolute 0.03 0.00 - 0.50 K/mcL LAB HEMETOLOGY METHOD 06/28/2024 2:41 PM [facility] Basophils Absolute 0.05 0.00 - 0.20 K/mcL LAB HEMETOLOGY METHOD 06/28/2024 2:41 PM [facility] Immature Granulocytes Absolute 0.03 0.00 - 0.03 K/mcL LAB HEMETOLOGY METHOD 06/28/2024 2:41 PM [facility] Blood Venous blood specimen / Unknown Venipuncture / Unknown 06/28/2024 1:36 PM EST 06/28/2024 2:04 PM EST us Chu Small MD LAB BLOOD ORDERABLES Chiquita l Result Performing Organization Address [facility]/ZIP Co de Phone Number [facility] [address] [place] [address], * B-type natriuretic peptide (06/28/2024 1:36 PM EST) [facility] BNP <2 <=100 pcg/mL LAB CHEMISTRY METHOD 06/28/2024 2:50 PM EST [facility] Blood Venous blood specimen / Unknown Venipuncture / Unknown 06/28/2024 1:36 PM EST 06/28/2024 2:04 PM EST Chu Small MD LAB BLOOD ORDERABLES Chiquita l Result Performing Organization Address [facility] Co de Phone Number [facility] [address] [place] [address], * Magnesium (06/28/2024 1:36 PM EST) [facility] Magnesium 2.2 1.9 - 2.6 mg/dL LAB CHEMISTRY METHOD 06/28/2024 2:58 PM EST [facility] Comment:Hemolysis present Blood Venous blood specimen / Unknown Venipuncture / Unknown 06/28/2024 1:36 PM EST 06/28/2024 2:04 PM EST Chu Small MD LAB BLOOD ORDERABLES Chiquita l Result Performing Organization Address City/[facility]/ZIP Co de Phone Number [facility] [address] [place] [address], [place] [phone] * Lipase (06/28/2024 1:36 PM EST) [facility] Lipase 41 13 - 75 unit/L LAB CHEMISTRY METHOD 06/28/2024 2:58 PM EST [facility] Blood Venous blood specimen / Unknown Venipuncture / Unknown 06/28/2024 1:36 PM EST 06/28/2024 2:04 PM EST us Chu Small MD LAB BLOOD ORDERABLES Chiquita tami Result [facility] [address] [place] [address], [place] [phone] * (ABNORMAL) Comprehensive metabolic panel (06/28/2024 1:36 PM EST) Sodium 136 133 - 145 mmol/L LAB [...] 06/28/2024 2:58 PM [facility] Total Protein 8.3(H) 6.0 - 8.0 g/dL LAB CHEMISTRY METHOD 06/28/2024 2:58 PM [facility] Albumin 4.9 3.2 - 5.0 g/dL LAB CHEMISTRY METHOD 06/28/2024 2:58 PM [facility] Total Bilirubin 0.8 0.0 - 1.4 mg/dL LAB CHEMISTRY METHOD 06/28/2024 2:58 PM [facility] Blood Venous blood specimen / Unknown Venipuncture / Unknown 06/28/2024 1:36 PM EST 06/28/2024 2:04 PM EST us Chu Small MD LAB BLOOD ORDERABLES Chiquita l Result [facility] [address] [place] [address], * Troponin I high sensitivity (06/28/2024 1:36 PM EST) High Sensitivity Troponin I 4 <=79 ng/L LAB CHEMISTRY METHOD 06/28/2024 2:42 PM EST [facility] Blood Venous blood specimen / Unknown Venipuncture / Unknown 06/28/2024 1:36 PM EST 06/28/2024 2:04 PM EST Narrative [facility] ([facility]) [facility] - 06/28/2024 2:42 PM EST High levels of biotin in samples may falsely decrease hsTroponin values. ??Use caution when interpreting hsTroponin results in patients taking biotin who exhibit renal impairment (eGFR <60) or in patients taking more than 20 mg/day of biotin. Chu Small MD LAB BLOOD ORDERABLES Chiquita l Result Performing Organization Address [facility] Co de Phone Number [facility]) [facility] [address] [place] [address], [place] [phone] * ECG 12 lead (06/28/2024 12:27 PM EST) Ventricular Rate ECG 65 BPM GEMUSE Atrial Rate 65 BPM GEMUSE P-R Interval 138 ms GEMUSE QRS Duration 100 ms GEMUSE Q-T Interval 398 ms GEMUSE QTc 413 ms GEMUSE P Wave [place] 75 degrees GEMUSE R [place] 87 degrees GEMUSE T [place] 56 degrees GEMUSE ECG Interpretation Normal sinus rhythm Normal ECG When compared with ECG of 26-JUN-2024 21:36, No significant change was found Confirmed by Diogo HAYWOOD JAMES ([id number]) on 06/28/2024 6:37:34 PM GEMUSE 06/28/2024 12:2 7 PM EST 06/28/2024 6:37 PM EST Chu Small MD ECG ORDERABLES Final Res ult Performing Organization Address [facility] Co de Phone Number GEMUSE documented in [...] Perez) documented in this encounter Care Teams Security Guard Relationship Specialty Start Date End Date Physician, Pcp Unknown PCP - General 06/28/24 documented as of this encounter
--- OUTSIDE RECORDS SUMMARY | 2024-07-14 11:22 | XMS_ITS | Encounter Summary ---
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 Encounter Details Date Type Department Care Team ([facility] st Contact Info) Description 07/12/2024 1:30 PM EST Consult Thoracic Surgery - [place] [address] [facility] [address] [place] [address] [phone] Estrella Galvan MD [address] [facility] [address] [place] [id number] Lung cyst (Primary Dx) Social History Tobacco Use Types Packs/Day Years [...] 07/12/2024 1:31 PM ES T Respiratory Rate - - Oxygen Saturation 99% 07/12/2024 1:31 PM EST Inhaled Oxygen Concentration - - Weight 81.5 kg (179 lb 9.6 oz) 07/12/2024 1:31 P M EST Height 180.3 cm (5' 11 ) 07/12/2024 1:31 PM EST Body Mass Index 25.05 07/12/2024 1:31 PM EST documented in this encounter Progress Notes * Estrella Galvan MD - 07/12/2024 2:32 PM ESTAssociated Problem(s): Lung cyst 39-year-old male who presented to the ED with chest pain and shortness of breath and found on CTA to have paraseptal emphysematous changes/lung cysts in particular on the right side. There is no masshere or anything that I am concerned about and I discussed the findings on his CAT scan in detail with him which he seemed understand. He is going to see a security guard dispatcher and tells me that he has stopped vaping and smoking which I think is great and probably will help with his overall health. However at any follow-up is needed with me or any follow-up imaging is needed necessarily. * Estrella Galvan MD - 07/12/2024 1:30 PM EST NEW PATIENT CONSULTATION Name: Aguilar Carrasqulilo : 1985 Date of Visit: 07/12/2024 Referring Physician: Jacques Blackman PA Primary Care Physician: Pcp Unknown Physician Chief Complaint Patient presents with Consult Adenoid Cystic Carcinoma of Right Lung HPI Mr. Carrasquillo is a 39 y.o. male who presents for outpatient consultation regarding the management of lung cyst/emphysematous changes. 39-year-old man who recent tell me he has quit vaping and quit smoking marijuana but did smoke cigarettes until recently as well about half a pack per day from age 15 to age 31. He presented the emergency department on 06/28/2024 with chest pain and shortness of breath. A CT angiogram was done on that same day which shows a 2.4 cm cyst along the pleural surface medially in the right lung as well as some emphysematous changes that are paraseptal on both sides. There are no other concerning findings on this CT scan. He states that since stopping smoking and vaping the pain that he was having and shortness of breath has improved significantly and thinks some of it is related to reflux that he has been having and noticed recently as well. He is trying to do some dietary changes for this and seems to be moving aswell. He does have follow-up with GI for that. He reports feeling generally good health denies unintentional weight loss decreased appetite fevers chills or soaking sweats. He denies cough or hemoptysis. He denies any new neurologic symptoms. 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 48 each 0 No current facility-administered medications for this visit. Social History Tobacco Use Smoking status: Every Day Current packs/day: 0.75 Average packs/day: 0.8 packs/day for 25.1 years (18.9 ttl pk-yrs) Types: Cigarettes Start date: 05/19/1999 Smokeless tobacco: Never Substance Use Topics Alcohol use: No Drug use: No Social History Social History Narrative Lives with family. Safe at home. 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 Family History Problem Relation Name Age of Onset Asthma Mother Stroke Mother Hypertension Father eczema Hyperlipidemia Father Ovarian cancer Sister No Known Problems Maternal Grandmother Cancer Maternal Grandfather COPD Maternal Grandfather Alcohol abuse Paternal Grandmother No Known Problems Paternal Grandfather Review of Systems General - Negative for: weight loss/gain, fatigue, fever, chills, weakness, difficulty sleeping Head - Negative for: headache, trauma Eyes - Negative for: acute vision change, blurred vision, double vision, eye pain, conjunctival erythema, eyelid pain/swelling/erythema Ears - Negative for: acute change in hearing, tinnitus, ear pain, ear drainage Nose - Negative for: nasal discharge, nosebleed, itching, sinus pain Mouth/Throat - Negative for: sore throat, swollen throat, dry mouth, hoarseness, dysphagia, odynophagia, oral lesions Neck - Negative for: pain, stiffness, swelling, mass/lumps, swollen glands Cardiovascular - Negative for: chest pain/pressure, exertional chest pain, palpitations, lightheadedness, dizziness, orthopnea, extremity edema Respiratory -as above Gastrointestinal - Negative for: abdominal pain, abdominal distention, bloating, nausea, vomiting, early satiety, diarrhea, constipation, BRBPR, melena, poor appetite Genitourinary - Negative for: dysuria, hematura, urinary frequency, urinary urgency, incontinence Musculoskeletal - Negative for: muscle or joint pain, stiffness, back pain, joint swelling or erythema Neurologic - Negative for: dizziness, seizures, weakness, numbness, tingling, tremor, dysarthria, facial droop Hematologic - Negative for: easy bruising, easy bleeding, ecchymosis, petechiae Endocrine - Negative for: polyuriua, polydipsia, heat or cold intolerance Lymphatic - Negative for: swollen nodes, unexplained lumps/bumps in neck/axillae/groin Skin - Negative for: rashes, lumps, itching, dryness, color change, hair/nail changes Psychiatric - Negative for: depression, anxiety, nervousness, stress, memory change, SI/HI Physical Exam Vitals: 07/12/24 1331 BP: (!) 141/77 BP Location: Right arm Patient Position: Sitting BP Cuff Size: Adult Pulse: 77 Temp: 36.7 ??C (98.1 ??F) TempSrc: Temporal SpO2: 99% Weight: 81.5 kg (179 lb 9.6 oz) Height: 1.803 m (71 ) General: Patient is sitting comfortably in no acute distress, well developed, well nourished Head: Normocephalic, atraumatic, symmetric Eyes: Sclera anicteric, eyelids without edema or erythema, +EOMS intact ENT: Oral mucosa and tongue are moist without lesions or exudates Neck: Soft, supple, symmetric, trachea midline, no crepitus, no mass visualized or palpated Cardiovascular: Regular rate and rhythm, no murmur/rubs/gallops, BUE and BLE without edema, no calftenderness bilaterally Respiratory: Lungs CTAB, breathing nonlabored, speaking in full sentences, on room air. No use of accessory muscles. No obvious chest wall abnormality or deformity Gastrointestinal: Soft, non-tender, non-distended, +normoactive bowel sounds. Lymphatic: no cervical, supraclavicular, infraclavicular, or other lymphadenopathy noted Neurological: Alert and oriented x 3, neurologic exam is grossly normal Psychiatric: No agitation, appropriate affect Pathology None Micro / Labs Reviewed Radiology Reviewed and interpreted by me directly as above I personally viewed the following imaging studies, in addition to reviewing the dictated report from the reading radiologist Assessment/Plan Problem List Items Addressed This Visit Respiratory Lung cyst - Primary 39-year-old male who presented to the ED with chest pain and shortness of breath and found on CTA to have paraseptal emphysematous changes/lung cysts in particular on the right side. There is no masshere or anything that I am concerned about and I discussed the findings on his CAT scan in detail with him which he seemed understand. He is going to see a security guard dispatcher and tells me that he has stopped vaping and smoking which I think is great and probably will help with his overall health. However at any follow-up is needed with me or any follow-up imaging is needed necessarily. Total time spent on date of this encounter: 49 minutes. Reviewing patient's chart, Independently reviewing current/past imaging, Visit with the patient, Counseling and educating patient/family on diagnosis, Discussion of ongoing management, and Documenting clinical information in the patient's medical record Estrella Galvan MD on 07/12/2024 at 2:32 PM EST CC: Jacques Blackman PA Pcp Unknown Physician documented in this encounter Plan of Treatment Not on file documented as of this encounter Visit Diagnoses Diagnosis Lung cyst- Primary documented in this encounter Discontinued Medications Medication Sig Discontinue Reason Start Date End Da te lactulose (CHRONULAC) solution Take 30 mL by mouth 2 times daily. 03/04/2023 07/12/2024 psyllium (Daily Fiber, psyllium-aspart,) 3.4 gram packet Take 1 Packet by mouth daily. 03/04/2023 07/12/2024 polyethylene glycol (MIRALAX) 17 gram packet Take 1 Packet by mouth daily. 03/04/2023 07/12/2024 simethicone (MYLICON) 125 mg chewable tablet Take 1 Tablet by mouth every 6 hours as needed for Flatulence. 03/04/2023 07/12/2024 polyethylene glycol (MIRALAX) 17 gram packet Take 1 Packet by mouth daily as needed (constipation). 07/29/2022 07/12/2024 hydrOXYzine pamoate (VISTARIL) 25 mg capsule Take 1 capsule (25 mg total) by mouth every 6 (six) hours if needed for anxiety. 06/28/2024 07/12/2024 documented as of this encounter Care Teams Mica Paster Relationship Specialty Start Date End Date Physician, Pcp Unknown PCP - General 06/28/24 documented as of this encounter
--- OUTSIDE RECORDS SUMMARY | 2024-07-14 11:22 | XMS_ITS | Encounter Summary ---
Author Organization [facility] Address [address] [place] [address] Care Team Providers Care Elevator Repairer Helper Name Role Phone Unavailable Primary Care Provider Unavailabl e Reason for Visit * Reason Comments Chest Pain X2 MONTHS Encounter Details Date Type Department Care Team (Late st Contact Info) Description 06/26/2024 7:29 PM EST - 06/26/2024 11:08 PM EST Emergency [facility] Emergency [address] [place] [address] Discharge Disposition: Home or Self [...] by mouth 2 times daily. 03/04/2023 07/12/2024 polyethylene glycol (MIRALAX) 17 gram packet Take 1 Packet by mouth daily. 03/04/2023 07/12/2024 polyethylene glycol (MIRALAX) 17 gram packet Take 1 Packet by mouth daily as needed (constipation ). 07/29/2022 07/12/2024 psyllium (Daily Fiber, psyllium-aspart,) 3.4 gram packet Take 1 Packet by mouth daily. 03/04/2023 07/12/2024 simethicone (MYLICON) 125 mg chewable tablet Take 1 Tablet by mouth every 6 hours as needed for Flatulence. 03/04/2023 07/12/2024 documented as of this encounter Discharge Disposition [...] on file documented as of this encounter Procedures Procedure [...] I high sensitivity (06/26/2024 9:43 PM EST) [facility] High Sensitivity Troponin I 4 <=79 ng/L LAB CHEMISTRY METHOD 06/26/2024 10:14 PM EST [facility] Blood Venous blood specimen / Unknown Venipuncture / Unknown 06/26/2024 9:43 PM EST 06/26/2024 9:48 PM EST Narrative [facility] - 06/26/2024 10:14 PM EST High levels of biotin in samples may falsely decrease hsTroponin values. ??Use caution when interpreting hsTroponin results in patients taking biotin who exhibit renal impairment (eGFR <60) or in patients taking more than 20 mg/day of biotin. us Mariam Woo DO LAB BLOOD ORDERABLES Chiquita l Result [facility] [address] [place] [address], [place] [phone] * ECG 12 lead (06/26/2024 9:36 PM EST) Ventricular Rate ECG 62 BPM GEMUSE Atrial Rate 62 BPM GEMUSE P-R Interval 132 ms GEMUSE QRS Duration 98 ms GEMUSE Q-T Interval 410 ms GEMUSE QTc 416 ms GEMUSE P Wave [place] 63 degrees GEMUSE R [place] 83 degrees GEMUSE T [place] 63 degrees GEMUSE ECG Interpretation Normal sinus rhythm Normal ECG When compared with ECG of 26-JUN-2024 19:45, No significant change was found Confirmed by MARGARITA MEZA ([id number]) on 06/27/2024 7:38:00 AM GEMUSE 06/26/2024 9:36 PM EST 06/27/2024 7:38 AM EST us Mariam Miles Woo DO ECG ORDERABLES Final Res ult GEMUSE * XR Chest 2 Views (06/26/2024 [...] Signed Date: 06/27/2024 07:18 ET Workstation ID: [id number] Transcribed By: Self Edit Transcribed Date: 06/27/2024 [...] Signed Date: 06/27/2024 07:18 ET Workstation ID: [id number] Transcribed By: Self Edit Transcribed Date: 06/27/2024 07:17 ET us Mariam Woo DO IMG XR PROCEDURES Final R esult * CBC auto differential (06/26/2024 7:56 PM EST) WBC 9.9 4.8 - 10.8 K/mcL LAB HEMETOLOGY METHOD 06/26/2024 8:43 PM [facility] RBC 4.90 4.50 - 5.50 M/mcL LAB HEMETOLOGY METHOD 06/26/2024 8:43 PM [facility] Hemoglobin 15.0 13.5 - 17.5 g/dL LAB HEMETOLOGY METHOD 06/26/2024 8:43 PM [facility] Hematocrit 44.8 42.0 - 54.0 % LAB HEMETOLOGY METHOD 06/26/2024 8:43 PM [facility] MCV 92.0 79.0 - 98.0 FL LAB HEMETOLOGY METHOD 06/26/2024 8:43 PM [facility] MCH 30.8 27.0 - 32.0 pcg LAB HEMETOLOGY METHOD 06/26/2024 8:43 PM [facility] MCHC 33.5 32.0 - 37.0 g/dL LAB HEMETOLOGY METHOD 06/26/2024 8:43 PM [facility] RDW 12.4 11.0 - 15.0 % LAB HEMETOLOGY METHOD 06/26/2024 8:43 PM [facility] Platelets 269 130 - 400 K/mcL LAB HEMETOLOGY METHOD 06/26/2024 8:43 PM [facility] MPV 10.8 7.0 - 11.0 FL LAB HEMETOLOGY METHOD 06/26/2024 8:43 PM [facility] NRBC 0.0 <1.0 % LAB HEMETOLOGY METHOD 06/26/2024 8:43 PM [facility] NRBC Absolute 0.00 <0.10 K/mcL LAB HEMETOLOGY METHOD 06/26/2024 8:43 PM [facility] Neutrophils Relative 64.4 % LAB HEMETOLOGY METHOD 06/26/2024 8:43 PM [facility] Lymphocytes Relative 26.7 % LAB HEMETOLOGY METHOD 06/26/2024 8:43 PM [facility] Monocytes Relative 6.3 % LAB HEMETOLOGY METHOD 06/26/2024 8:43 PM [facility] Eosinophils Relative 1.8 % LAB HEMETOLOGY METHOD 06/26/2024 8:43 PM [facility] Basophils Relative 0.5 % LAB HEMETOLOGY METHOD 06/26/2024 8:43 PM [facility] Immature Granulocytes Relative 0.3 % LAB HEMETOLOGY METHOD 06/26/2024 8:43 PM [facility] Neutrophils Absolute 6.34 1.50 - 7.00 K/mcL LAB HEMETOLOGY METHOD 06/26/2024 8:43 PM [facility] Lymphocytes Absolute 2.63 1.00 - 5.00 K/mcL LAB HEMETOLOGY METHOD 06/26/2024 8:43 PM [facility] Monocytes Absolute 0.62 0.20 - 1.00 K/[facility] LAB HEMETOLOGY METHOD 06/26/2024 8:43 PM EST [facility] Eosinophils Absolute 0.18 0.00 - 0.50 K/[facility] LAB HEMETOLOGY METHOD 06/26/2024 8:43 PM EST [facility] Basophils Absolute 0.05 0.00 - 0.20 K/[facility] LAB HEMETOLOGY METHOD 06/26/2024 8:43 PM EST [facility] Immature Granulocytes Absolute 0.03 0.00 - 0.03 K/[facility] LAB HEMETOLOGY METHOD 06/26/2024 8:43 PM EST [facility] Blood Venous blood specimen / Unknown Venipuncture / Unknown 06/26/2024 7:56 PM EST 06/26/2024 8:30 PM EST us Mariam Woo DO LAB BLOOD ORDERABLES Chiquita l Result [facility] [address] [place] [address], [place] [phone] * (ABNORMAL) D-dimer, quantitative (06/26/2024 7:56 PM EST) D-Dimer, Quant (D-DU) 252(H) <=230 ng/mL DDU LAB COAGULATION METHOD 06/26/2024 8:53 PM EST [facility] Blood Venous blood specimen / Unknown Venipuncture / Unknown 06/26/2024 7:56 PM EST 06/26/2024 8:30 PM EST [facility] - 06/26/2024 8:53 PM EST D-Dimer <230 ng/mL (D-Dimer units) is the threshold for exclusion of DVT/PE. D-Dimer may be elevated in: Critically ill, severely infected, trauma patients, DIC, acute CVA, acute [place], unstable angina, AF, old age, , and smoking. D-Dimer may be decreased with: Initiation of heparin therapy and oral anticoagulants. Mariam Woo LAB BLOOD ORDERABLES Chiquita l Result Performing Organization Address [facility]/ZIP Co de Phone Number [facility] [address] [place] [address], [place] [phone] * B-type natriuretic peptide (06/26/2024 7:56 PM EST) [facility] BNP <2 <=100 pcg/mL LAB CHEMISTRY METHOD 06/26/2024 9:12 PM EST [facility] Blood Venous blood specimen / Unknown Venipuncture / Unknown 06/26/2024 7:56 PM EST 06/26/2024 8:[address] [facility] Lamont Woo LAB BLOOD ORDERABLES Chiquita l Result Performing Organization Address [facility]/ZIP Co de Phone Number [facility] [address] [place] [address], [place] [phone] * Magnesium (06/26/2024 7:56 PM EST) [facility] Magnesium 2.0 1.9 - 2.6 mg/dL LAB CHEMISTRY METHOD 06/26/2024 9:04 PM EST [facility] Blood Venous blood specimen / Unknown Venipuncture / Unknown 06/26/2024 7:56 PM EST 06/26/2024 8:30 PM EST [facility] LAB BLOOD ORDERABLES Chiquita l Result Performing Organization Address [facility]/ZIP Co de Phone Number [facility] [address] [place] [address], [place] [phone] * Lipase (06/26/2024 7:56 PM EST) [facility] Lipase 61 13 - 75 unit/L LAB CHEMISTRY METHOD 06/26/2024 9:04 PM [facility] Blood Venous blood specimen / Unknown Venipuncture / Unknown 06/26/2024 7:56 PM EST 06/26/2024 8:30 PM EST us Mariam Woo DO LAB BLOOD ORDERABLES Chiquita l Result [facility] [address] [place] [address], [place] [phone] * (ABNORMAL) Comprehensive metabolic panel (06/26/2024 7:56 PM EST) Sodium 136 133 - 145 mmol/L LAB CHEMISTRY METHOD 06/26/2024 9:04 PM [facility] Potassium 3.6 3.5 - 5.5 mmol/L LAB CHEMISTRY METHOD 06/26/2024 9:04 PM [facility] Chloride 105 96 - 110 mmol/L LAB CHEMISTRY METHOD 06/26/2024 9:04 PM [facility] CO2 24 21 - 32 mmol/L LAB CHEMISTRY METHOD 06/26/2024 9:04 PM [facility] Anion Gap 7 3 - 11 LAB CHEMISTRY METHOD 06/26/2024 9:04 PM [facility] Glucose 114(H) 70 - 100 mg/dL LAB CHEMISTRY METHOD 06/26/2024 9:04 PM [facility] BUN 15 5 - 25 mg/dL LAB CHEMISTRY METHOD 06/26/2024 9:04 PM [facility] Creatinine 0.94 0.70 - 1.30 mg/dL LAB CHEMISTRY METHOD 06/26/2024 9:04 PM [facility] eGFR 106 >=60 mL/min/1. 73m2 LAB CHEMISTRY METHOD 06/26/2024 9:04 PM [facility] Comment:Calculation based on the??Chronic Kidney Disease Epidemiology Collaboration (CKD-EPI) equation refit??without adjustment for race. BUN/Creatinine Ratio 16.0 LAB CHEMISTRY METHOD 06/26/2024 9:04 PM [facility] Calcium 9.8 8.5 - 10.5 mg/dL LAB CHEMISTRY METHOD 06/26/2024 9:04 PM [facility] AST (SGOT) 30 10 - 42 unit/L LAB CHEMISTRY METHOD 06/26/2024 9:04 PM [facility] ALT (SGPT) 51 10 - 60 unit/L LAB CHEMISTRY METHOD 06/26/2024 9:04 PM [facility] Alkaline Phosphatase 95 42 - 121 unit/L LAB CHEMISTRY METHOD 06/26/2024 9:04 PM [facility] Total Protein 7.9 6.0 - 8.0 g/dL LAB CHEMISTRY METHOD 06/26/2024 9:04 PM [facility] Albumin 4.6 3.2 - 5.0 g/dL LAB CHEMISTRY METHOD 06/26/2024 9:04 PM [facility] Total Bilirubin 0.5 0.0 - 1.4 mg/dL LAB CHEMISTRY METHOD 06/26/2024 9:04 PM [facility] Blood Venous blood specimen / Unknown Venipuncture / Unknown 06/26/2024 7:56 PM EST 06/26/2024 8:30 PM EST us Mariam Woo DO LAB BLOOD ORDERABLES Chiquita l Result [facility] [address] [place] [address], [place] [phone] * Troponin I high sensitivity (06/26/2024 7:56 PM EST) High Sensitivity Troponin I 4 <=79 ng/L LAB CHEMISTRY METHOD 06/26/2024 9:03 PM EST [facility] Blood Venous blood specimen / Unknown Venipuncture / Unknown 06/26/2024 7:56 PM EST 06/26/2024 8:30 PM EST Narrative [facility] - 06/26/2024 9:03 PM EST High levels of biotin in samples may falsely decrease hsTroponin values. ??Use caution when interpreting hsTroponin results in patients taking biotin who exhibit renal impairment (eGFR <60) or in patients taking more than 20 mg/day of biotin. Mariam Lamont Jd Woo DO LAB BLOOD ORDERABLES Chiquita l Result Performing Organization Address City/[facility]/ZIP Co de Phone Number [facility] [address] [place] [address], [place] [phone] * ECG 12 lead (06/26/2024 7:45 PM EST) Ventricular Rate ECG 69 BPM GEMUSE Atrial Rate 69 BPM GEMUSE P-R Interval 132 ms GEMUSE QRS Duration 100 ms GEMUSE Q-T Interval 384 ms GEMUSE QTc 411 ms GEMUSE P Wave [place] 82 degrees GEMUSE R [place] 86 degrees GEMUSE T [place] 68 degrees GEMUSE ECG Interpretation Normal sinus rhythm Normal ECG When compared with ECG of 28-JUL-2022 01:05, No significant change was found Confirmed by MARGARITA MEZA ([id number]) on 06/27/2024 7:33:41 AM GEMUSE 06/26/2024 7:45 PM EST 06/27/2024 7:33 AM EST Mariam Miguel Jd Woo DO ECG ORDERABLES Final Res ult GEMUSE documented in this encounter Visit Diagnoses Not on filedocumented in this encounter
== END 2024-07-14 11:03 | disposition home or self-care (01) ==
DX: Z23 Encounter for immunization (principal)

== ENCOUNTER → 2024-07-14 09:45 | Outpatient (BNVA) | payer BC, SELFPAY | DX: Z00.00 Encounter for general adult medical examination without abnormal findings (principal); Z23 Encounter for immunization; R07.9 Chest pain, unspecified; J43.9 Emphysema, unspecified; J98.4 Other disorders of lung; M85.571 Aneurysmal bone cyst, right ankle and foot; M85.572 Aneurysmal bone cyst, left ankle and foot; K13.0 Diseases of lips; F41.9 Anxiety disorder, unspecified; F17.219 Nicotine dependence, cigarettes, with unspecified nicotine-induced disorders; R12 Heartburn; E55.9 Vitamin D deficiency, unspecified; E78.00 Pure hypercholesterolemia, unspecified; Z79.899 Other long term (current) drug therapy | CPT/HCPCS: 90471; 90656 ==

== ENCOUNTER 2024-07-26 09:55 | Outpatient (AMB) | payer BC, SELFPAY ==
[2024-07-26 09:56] VITALS: BP 132/78; PULSE 81; O2SAT 100; BMI 26.0
--- NOTE | 2024-07-26 09:56 | MHC.OFFVIS ---
Vital Signs 07/26/24 09:56 Height 5 ft 11 in Weight 186 lb 4.65 oz BMI 26.0 BP 132/78 Blood Pressure Location Rt brachial Position Sitting Pulse 81 Pulse Source Doppler Pulse Oximetry (%) 100 Oxygen Delivery Method Room Air Intake Visit Reasons: emphysema Allergies No Known Allergies Allergy (Verified 07/14/24 10:20) HPI HPI emphysema: Details: 39-year-old gentleman former 20+ pack-year smoker, also vaped nicotine components quit within last few months, referred for evaluation of emphysema and several lung cysts noted on CT scan performed [facility]. Patient states that he also was evaluated by thoracic surgery at [facility] and told that his cysts are not malignant and do not need to be biopsied. He does complain of intermittent dyspnea on exertion. Patient does have underlying history of eczema and environmental allergies. He has history of asthma in his mother. Patient does have a dog. He previously was employed in [employer] 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 [facility] Medical History (Updated 07/26/24 @ 10:25 by Alessandro Daniels MD) Eczema Asthma Seizure Herpes simplex type 1 infection Nicotine dependence HLD (hyperlipidemia) Surgical History History of wisdom tooth extraction History of tonsillectomy History of foot surgery Family History (Updated 07/17/24 @ 20:39 by JONATHAN Ramos) Father HTN (hypertension) Eczema Mother Asthma Other Mental health disorder Substance use disorder Social History (Updated 07/26/24 @ 10:02 by Chasity rWight [facility]) Housing: Condominium Alcohol intake: current Alcohol intake frequency: a few times a month Patient Tobacco Use Status: Former Tobacco user Tobacco use type: Cigarette Years Smoked: started age 15, 1PPD, quit 2015 e-Cigarette/Vaping Use: Former Use Second Hand Smoke Exposure: Yes service: No Current occupational status: employed Current occupation: [employer] Cognitive needs: No Hearing needs: No Vision needs: Yes (Glasses) Review of Systems Const Denies daytime sleepiness, Denies excessive sweating, Denies fatigue, Denies fever(s), Denies lethargy, Denies malaise, Denies night sweats, Denies snoring and Denies weight loss Eyes Denies blurry vision and Denies itchy eyes ENT Denies nasal congestion, Denies post nasal drip, Denies sinus pain, Denies sinus pressure and Denies other ( Thrush) Card Denies chest pain, Denies pedal edema, Denies dyspnea, Denies orthopnea and Denies paroxysmal nocturnal dyspnea Resp Denies cough, Denies hemoptysis, Denies excessive phlegm production, Denies dyspnea, Denies snoring and Denies wheezing GI Denies abdominal pain and Denies heartburn Musc Denies myalgias, Denies arthralgias and Denies joint swelling Skin/Breast Denies rash Neuro Denies memory loss and Denies seizure-like activity Psych Denies abnormal sleep pattern, Denies anxiety and Denies memory loss Endo Denies excessive sweating, Denies fatigue and Denies heat intolerance Ollie/Lymph Denies easy bruising Aller/Immun Denies itchy eyes, Denies seasonal rhinorrhea and Denies wheezing Physical Exam Vital Signs: Last Vital Signs Pulse 81 07/26/24 09:56 BP 132/78 07/26/24 09:56 Pulse Ox 100 07/26/24 09:56 Oxygen Delivery Method Room Air 07/26/24 09:56 BMI result Body Mass Index 26.0 Const General: no acute distress and alert Nutritional Appearance: not obese Orientation/consciousness: Other orientation findings ( oriented) HEENT Head: Yes atraumatic Eyes General: appearance normal, both eyes and all related structures Sclerae: sclerae normal EOM: EOMs intact bilaterally Neck Neck: Yes supple Lymphatic: no lymphadenopathy noted Resp Effort & Inspection: normal respiratory effort and no use of accessory muscles Auscultation: clear to auscultation bilaterally Cardio Rate: regular rate Rhythm: regular rhythm Heart sounds: no gallops, no murmurs and no rubs Skin General skin exam: other ( warm) Extrem General: No clubbing, No cyanosis and No edema Assessment & Plan Assessment & Plan (1) Emphysema lung: Code(s): J43.9 - Emphysema, unspecified Category: Medical Qualifiers: Emphysema type: unspecified Qualified Code(s): J43.9 - Emphysema, unspecified (2) Lung cyst: Code(s): J98.4 - Other disorders of lung Category: Medical (3) Environmental allergies: Code(s): Z91.09 - Other allergy status, other than to drugs and biological substances Category: Medical (4) Personal history of nicotine dependence: Code(s): Z87.891 - Personal history of nicotine dependence Category: Medical Plan Will obtain CT chest images from [facility]. Will obtain full PFT. Will start on Spiriva and albuterol MDI. Will obtain immunologic workup. Orders: Orders Complete Blood Count Auto Diff Today Z91.09 - Other allergy status, other than to drugs and biological substances PFT pulmonary function test Today J43.9 - Emphysema, unspecified Resp Allergy Profile Region I Today Z91.09 - Other allergy status, other than to drugs and biological substances Medications: New tiotropium bromide 2.5 mcg/actuation (Spiriva Respimat) 2 puffs inhalation QAM 4 grams 6RF J43.9 - Emphysema, unspecified albuterol sulfate 90 mcg/actuation 2 puffs inhalation Q4-6H PRN 1 ea 6RF shortness of breath or wheezing J43.9 - Emphysema, unspecified Coding Level of Care Code New Pt Level 4 (83642) Diagnoses Pulmonary emphysema, unspecified emphysema type J43.9 Emphysema type: unspecified Lung cyst J98.4 Environmental allergies Z91.09 Personal history of nicotine dependence Z87.891
--- OUTSIDE RECORDS SUMMARY | 2024-07-26 10:53 | XMS_ITS | Encounter Summary ---
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 Encounter Details Date Type Department Care Team (Late st Contact Info) Description 06/28/2024 1:23 PM EST - 06/28/2024 7:13 PM EST Emergency [facility] Emergency [address] [place] [id number] Chest pain, unspecified type (Primary Dx) Discharge [...] or any other concern. Get well soon! [facility] Primary Care & Specialty Office Locations [place] [phone] [place] [phone] [place] ([address]) [phone] [place] ([address]) [phone] Orthopedics: [phone] Thank you for coming to the [facility] Emergency Department today. Our entire team works [...] sent through Care Everywhere. * Chest Pain (Eritrean) documented in this encounter Medications at Time [...] from the original note were not included. 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 ED EKG: Encounter Date: 06/28/24 ECG 12 lead Result Value Ventricular Rate ECG 63 Atrial Rate 63 P-R Interval 134 QRS Duration 94 Q-T Interval 408 QTc 417 P Wave [place] 50 R [place] 77 T [place] 50 ECG Interpretation Normal sinus rhythm Normal [...] [JS] MINERVA Chawla Clinical Impressions as of 06/28/24 2332 Chest pain, unspecified type ED Prescriptions: ED [...] Electronically signed by MAXIM Powell PA 06/28/24 1604 MINERVA Chawla 06/28/24 233 Cosigned by Mauricio Iglesias DO at 07/01/2024 [...] LAB CHEMISTRY METHOD 06/28/2024 3:53 PM EST [facility] Blood Venous blood specimen / Unknown Venipuncture / Unknown 06/28/2024 2:43 PM EST 06/28/2024 3:10 PM EST Narrative [facility] - 06/28/2024 3:53 PM EST High levels of biotin in samples may falsely decrease hsTroponin values. ??Use caution when interpreting hsTroponin results in patients taking biotin who exhibit renal impairment (eGFR <60) or in patients taking more than 20 mg/day of biotin. Chu Small MD LAB BLOOD ORDERABLES Chiquita l Result Performing Organization Address City/[facility]/ZIP Co de Phone Number [facility] [address] [place] [address], [place] [phone] * ECG 12 lead (06/28/2024 2:40 PM EST) Ventricular Rate ECG 63 BPM GEMUSE Atrial Rate 63 BPM GEMUSE P-R Interval 134 ms GEMUSE QRS Duration 94 ms GEMUSE Q-T Interval 408 ms GEMUSE QTc 417 ms GEMUSE P Wave [place] 50 degrees GEMUSE R [place] 77 degrees GEMUSE T [place] 50 degrees GEMUSE ECG Interpretation Normal sinus rhythm Normal ECG When compared with ECG of 28-JUN-2024 12:27, (unconfirmed) No significant change was found Confirmed by Diogo HAYWOOD JAMES ([id number]) on 06/28/2024 6:39:11 PM GEMUSE 06/28/2024 2:40 PM EST 06/28/2024 6:39 PM EST us Chu Small MD ECG ORDERABLES Final Res ult Performing Organization Address City/[facility]/ZIP Co de Phone Number GEMUSE * (ABNORMAL) CBC auto differential (06/28/2024 1:36 PM EST) WBC 8.3 4.8 - 10.8 K/[facility] LAB HEMETOLOGY METHOD 06/28/2024 2:41 PM [facility] RBC 5.00 4.50 - 5.50 M/mcL LAB HEMETOLOGY METHOD 06/28/2024 2:41 PM [facility] Hemoglobin 15.6 13.5 - 17.5 g/dL LAB HEMETOLOGY METHOD 06/28/2024 2:41 PM [facility] Hematocrit 45.4 42.0 - 54.0 % LAB HEMETOLOGY METHOD 06/28/2024 2:41 PM [facility] MCV 90.1 79.0 - 98.0 FL LAB HEMETOLOGY METHOD 06/28/2024 2:41 PM [facility] MCH 31.0 27.0 - 32.0 pcg LAB HEMETOLOGY METHOD 06/28/2024 2:41 PM [facility] MCHC 34.4 32.0 - 37.0 g/dL LAB HEMETOLOGY METHOD 06/28/2024 2:41 PM [facility] RDW 12.3 11.0 - 15.0 % LAB HEMETOLOGY METHOD 06/28/2024 2:41 PM [facility] Platelets 235 130 - 400 K/mcL LAB HEMETOLOGY METHOD 06/28/2024 2:41 PM [facility] MPV 11.5(H) 7.0 - 11.0 FL LAB HEMETOLOGY METHOD 06/28/2024 2:41 PM [facility] NRBC 0.0 <1.0 % LAB HEMETOLOGY METHOD 06/28/2024 2:41 PM [facility] NRBC Absolute 0.00 <0.10 K/mcL LAB HEMETOLOGY METHOD 06/28/2024 2:41 PM [facility] Neutrophils Relative 75.6 % LAB HEMETOLOGY METHOD 06/28/2024 2:41 PM [facility] Lymphocytes Relative 17.4 % LAB HEMETOLOGY METHOD 06/28/2024 2:41 PM [facility] Monocytes Relative 5.6 % LAB HEMETOLOGY METHOD 06/28/2024 2:41 PM [facility] Eosinophils Relative 0.4 % LAB HEMETOLOGY METHOD 06/28/2024 2:41 PM [facility] Basophils Relative 0.6 % LAB HEMETOLOGY METHOD 06/28/2024 2:41 PM [facility] Immature Granulocytes Relative 0.4 % LAB HEMETOLOGY METHOD 06/28/2024 2:41 PM [facility] Neutrophils Absolute 6.26 1.50 - 7.00 K/mcL LAB HEMETOLOGY METHOD 06/28/2024 2:41 PM [facility] Lymphocytes Absolute 1.44 1.00 - 5.00 K/mcL LAB HEMETOLOGY METHOD 06/28/2024 2:41 PM [facility] Monocytes Absolute 0.46 0.20 - 1.00 K/mcL LAB HEMETOLOGY METHOD 06/28/2024 2:41 PM [facility] Eosinophils Absolute 0.03 0.00 - 0.50 K/mcL LAB HEMETOLOGY METHOD 06/28/2024 2:41 PM [facility] Basophils Absolute 0.05 0.00 - 0.20 K/mcL LAB HEMETOLOGY METHOD 06/28/2024 2:41 PM [facility] Immature Granulocytes Absolute 0.03 0.00 - 0.03 K/mcL LAB HEMETOLOGY METHOD 06/28/2024 2:41 PM [facility] Blood Venous blood specimen / Unknown Venipuncture / Unknown 06/28/2024 1:36 PM EST 06/28/2024 2:04 PM EST us Chu Small MD LAB BLOOD ORDERABLES Chiquita l Result Performing Organization Address [facility]/ZIP Co de Phone Number [facility] [address] [place] [address], [place] [phone] * B-type natriuretic peptide (06/28/2024 1:36 PM EST) [facility] BNP <2 <=100 pcg/mL LAB CHEMISTRY METHOD 06/28/2024 2:50 PM EST [facility] Blood Venous blood specimen / Unknown Venipuncture / Unknown 06/28/2024 1:36 PM EST 06/28/2024 2:04 PM EST Chu Small MD LAB BLOOD ORDERABLES Chiquita l Result Performing Organization Address [facility] Co de Phone Number [facility] [address] [place] [address], * Magnesium (06/28/2024 1:36 PM EST) [facility] Magnesium 2.2 1.9 - 2.6 mg/dL LAB CHEMISTRY METHOD 06/28/2024 2:58 PM EST [facility] Comment:Hemolysis present Blood Venous blood specimen / Unknown Venipuncture / Unknown 06/28/2024 1:36 PM EST 06/28/2024 2:04 PM EST Chu Small MD LAB BLOOD ORDERABLES Chiquita l Result Performing Organization Address City/[facility]/ZIP Co de Phone Number [facility] [address] [place] [address], [place] [phone] * Lipase (06/28/2024 1:36 PM EST) [facility] Lipase 41 13 - 75 unit/L LAB CHEMISTRY METHOD 06/28/2024 2:58 PM EST [facility] Blood Venous blood specimen / Unknown Venipuncture / Unknown 06/28/2024 1:36 PM EST 06/28/2024 2:04 PM EST us Chu Small MD LAB BLOOD ORDERABLES Chiquita tami Result [facility] [address] [place] [address], [place] [phone] * (ABNORMAL) Comprehensive metabolic panel (06/28/2024 1:36 PM EST) Sodium 136 133 - 145 mmol/L LAB CHEMISTRY METHOD 06/28/2024 2:58 PM EST [facility] Potassium 4.2 3.5 - 5.5 mmol/L LAB CHEMISTRY METHOD 06/28/2024 2:58 PM [facility] Comment:Hemolysis present Chloride 102 96 - 110 mmol/L LAB CHEMISTRY METHOD 06/28/2024 2:58 PM [facility] CO2 25 21 - 32 mmol/L LAB CHEMISTRY METHOD 06/28/2024 2:58 PM [facility] Anion Gap 9 3 - 11 LAB CHEMISTRY METHOD 06/28/2024 2:58 PM [facility] Glucose 85 70 - 100 mg/dL LAB CHEMISTRY METHOD 06/28/2024 2:58 PM [facility] BUN 12 5 - 25 mg/dL LAB CHEMISTRY METHOD 06/28/2024 2:58 PM [facility] Creatinine 0.94 0.70 - 1.30 mg/dL LAB CHEMISTRY METHOD 06/28/2024 2:58 PM [facility] eGFR 106 >=60 mL/min/1. 73m2 LAB CHEMISTRY METHOD 06/28/2024 2:58 PM [facility] Comment:Calculation based on the??Chronic Kidney Disease Epidemiology Collaboration (CKD-EPI) equation refit??without adjustment for race. BUN/Creatinine Ratio 12.8 LAB CHEMISTRY METHOD 06/28/2024 2:58 PM [facility] Calcium 10.3 8.5 - 10.5 mg/dL LAB CHEMISTRY METHOD 06/28/2024 2:58 PM EST [facility] AST (SGOT) 25 10 - 42 unit/L LAB CHEMISTRY METHOD 06/28/2024 2:58 PM [facility] Comment:Hemolysis present ALT (SGPT) 41 10 - 60 unit/L LAB CHEMISTRY METHOD 06/28/2024 2:58 PM [facility] Alkaline Phosphatase 86 42 - 121 unit/L LAB CHEMISTRY METHOD 06/28/2024 2:58 PM [facility] Total Protein 8.3(H) 6.0 - 8.0 g/dL LAB CHEMISTRY METHOD 06/28/2024 2:58 PM [facility] Albumin 4.9 3.2 - 5.0 g/dL LAB CHEMISTRY METHOD 06/28/2024 2:58 PM [facility] Total Bilirubin 0.8 0.0 - 1.4 mg/dL LAB CHEMISTRY METHOD 06/28/2024 2:58 PM EST [facility] Blood Venous blood specimen / Unknown Venipuncture / Unknown 06/28/2024 1:36 PM EST 06/28/2024 2:04 PM EST us Chu Small MD LAB BLOOD ORDERABLES Chiquita l Result [facility] [address] [place] [address], * Troponin I high sensitivity (06/28/2024 1:36 PM EST) High Sensitivity Troponin I 4 <=79 ng/L LAB CHEMISTRY METHOD 06/28/2024 2:42 PM EST [facility] Blood Venous blood specimen / Unknown Venipuncture / Unknown 06/28/2024 1:36 PM EST 06/28/2024 2:04 PM EST Narrative [facility] - 06/28/2024 2:42 PM EST High levels of biotin in samples may falsely decrease hsTroponin values. ??Use caution when interpreting hsTroponin results in patients taking biotin who exhibit renal impairment (eGFR <60) or in patients taking more than 20 mg/day of biotin. Chu Small MD LAB BLOOD ORDERABLES Chiquita l Result Performing Organization Address [facility] Co de Phone Number [facility] [address] [place] [address], [place] [phone] * ECG 12 lead (06/28/2024 12:27 PM EST) Ventricular Rate ECG 65 BPM GEMUSE Atrial Rate 65 BPM GEMUSE P-R Interval 138 ms GEMUSE QRS Duration 100 ms GEMUSE Q-T Interval 398 ms GEMUSE QTc 413 ms GEMUSE P Wave [place] 75 degrees GEMUSE R [place] 87 degrees GEMUSE T [place] 56 degrees GEMUSE ECG Interpretation Normal sinus rhythm Normal ECG When compared with ECG of 26-JUN-2024 21:36, No significant change was found Confirmed by Diogo HAYWOOD JAMES ([id number]) on 06/28/2024 6:37:34 PM GEMUSE 06/28/2024 12:2 7 PM EST 06/28/2024 6:37 PM EST Chu Small MD ECG ORDERABLES Final Res ult Performing Organization Address [facility] Co de Phone Number GEMUSE [...] Perez) documented in this encounter Care Teams Membership Sales Manager Relationship Specialty Start Date End Date Physician, Pcp Unknown PCP - General 06/28/24 documented as of this encounter
--- OUTSIDE RECORDS SUMMARY | 2024-07-26 10:53 | XMS_ITS | Encounter Summary ---
Author Organization [facility] Address [address] [place] [address] Care Team Providers Care Furniture Upholsterer Name Role Phone Unavailable Primary Care Provider Unavailabl e Reason for Visit * Reason Comments Chest Pain X2 MONTHS Encounter Details Date Type Department Care Team (Late st Contact Info) Description 06/26/2024 7:29 PM EST - 06/26/2024 11:08 PM EST Emergency [facility] Emergency [address] [place] [address] Discharge Disposition: Home or Self [...] I high sensitivity (06/26/2024 9:43 PM EST) [facility] High Sensitivity Troponin I 4 <=79 ng/L LAB CHEMISTRY METHOD 06/26/2024 10:14 PM EST [facility] Blood Venous blood specimen / Unknown Venipuncture / Unknown 06/26/2024 9:43 PM EST 06/26/2024 9:48 PM EST Narrative [facility] - 06/26/2024 10:14 PM EST High levels of biotin in samples may falsely decrease hsTroponin values. ??Use caution when interpreting hsTroponin results in patients taking biotin who exhibit renal impairment (eGFR <60) or in patients taking more than 20 mg/day of biotin. us Mariam Woo DO LAB BLOOD ORDERABLES Chiquita l Result [facility] [address] [place] [address], [place] [phone] * ECG 12 lead (06/26/2024 9:36 PM EST) Ventricular Rate ECG 62 BPM GEMUSE Atrial Rate 62 BPM GEMUSE P-R Interval 132 ms GEMUSE QRS Duration 98 ms GEMUSE Q-T Interval 410 ms GEMUSE QTc 416 ms GEMUSE P Wave [place] 63 degrees GEMUSE R [place] 83 degrees GEMUSE T [place] 63 degrees GEMUSE ECG Interpretation Normal sinus [...] Signed Date: 06/27/2024 07:18 ET Workstation ID: [id number] Transcribed By: Self Edit Transcribed Date: 06/27/2024 [...] Signed Date: 06/27/2024 07:18 ET Workstation ID: [id number] Transcribed By: Self Edit Transcribed Date: 06/27/2024 07:17 ET us Mariam Woo DO IMG XR PROCEDURES Final R esult * CBC auto differential (06/26/2024 7:56 PM EST) WBC 9.9 4.8 - 10.8 K/mcL LAB HEMETOLOGY METHOD 06/26/2024 8:43 PM [facility] RBC 4.90 4.50 - 5.50 M/mcL LAB HEMETOLOGY METHOD 06/26/2024 8:43 PM [facility] Hemoglobin 15.0 13.5 - 17.5 g/dL LAB HEMETOLOGY METHOD 06/26/2024 8:43 PM [facility] Hematocrit 44.8 42.0 - 54.0 % LAB HEMETOLOGY METHOD 06/26/2024 8:43 PM [facility] MCV 92.0 79.0 - 98.0 FL LAB HEMETOLOGY METHOD 06/26/2024 8:43 PM [facility] MCH 30.8 27.0 - 32.0 pcg LAB HEMETOLOGY METHOD 06/26/2024 8:43 PM [facility] MCHC 33.5 32.0 - 37.0 g/dL LAB HEMETOLOGY METHOD 06/26/2024 8:43 PM [facility] RDW 12.4 11.0 - 15.0 % LAB HEMETOLOGY METHOD 06/26/2024 8:43 PM [facility] Platelets 269 130 - 400 K/mcL LAB HEMETOLOGY METHOD 06/26/2024 8:43 PM [facility] MPV 10.8 7.0 - 11.0 FL LAB HEMETOLOGY METHOD 06/26/2024 8:43 PM [facility] NRBC 0.0 <1.0 % LAB HEMETOLOGY METHOD 06/26/2024 8:43 PM [facility] NRBC Absolute 0.00 <0.10 K/mcL LAB HEMETOLOGY METHOD 06/26/2024 8:43 PM [facility] Neutrophils Relative 64.4 % LAB HEMETOLOGY METHOD 06/26/2024 8:43 PM [facility] Lymphocytes Relative 26.7 % LAB HEMETOLOGY METHOD 06/26/2024 8:43 PM [facility] Monocytes Relative 6.3 % LAB HEMETOLOGY METHOD 06/26/2024 8:43 PM [facility] Eosinophils Relative 1.8 % LAB HEMETOLOGY METHOD 06/26/2024 8:43 PM [facility] Basophils Relative 0.5 % LAB HEMETOLOGY METHOD 06/26/2024 8:43 PM [facility] Immature Granulocytes Relative 0.3 % LAB HEMETOLOGY METHOD 06/26/2024 8:43 PM [facility] Neutrophils Absolute 6.34 1.50 - 7.00 K/mcL LAB HEMETOLOGY METHOD 06/26/2024 8:43 PM [facility] Lymphocytes Absolute 2.63 1.00 - 5.00 K/mcL LAB HEMETOLOGY METHOD 06/26/2024 8:43 PM [facility] Monocytes Absolute 0.62 0.20 - 1.00 K/[facility] LAB HEMETOLOGY METHOD 06/26/2024 8:43 PM EST [facility] Eosinophils Absolute 0.18 0.00 - 0.50 K/[facility] LAB HEMETOLOGY METHOD 06/26/2024 8:43 PM EST [facility] Basophils Absolute 0.05 0.00 - 0.20 K/[facility] LAB HEMETOLOGY METHOD 06/26/2024 8:43 PM EST [facility] Immature Granulocytes Absolute 0.03 0.00 - 0.03 K/[facility] LAB HEMETOLOGY METHOD 06/26/2024 8:43 PM EST [facility] Blood Venous blood specimen / Unknown Venipuncture / Unknown 06/26/2024 7:56 PM EST 06/26/2024 8:30 PM EST us Mariam Woo DO LAB BLOOD ORDERABLES Hciquita l Result [facility] [address] [place] [address], [place] [phone] * (ABNORMAL) D-dimer, quantitative (06/26/2024 7:56 PM EST) D-Dimer, Quant (D-DU) 252(H) <=230 ng/mL DDU LAB COAGULATION METHOD 06/26/2024 8:53 PM EST [facility] Blood Venous blood specimen / Unknown Venipuncture / Unknown 06/26/2024 7:56 PM EST 06/26/2024 8:30 PM EST [facility] - 06/26/2024 8:53 PM EST D-Dimer <230 ng/mL (D-Dimer units) is the threshold for exclusion of DVT/PE. D-Dimer may be elevated in: Critically ill, severely infected, trauma patients, DIC, acute CVA, acute MT, unstable angina, AF, old age, , and smoking. D-Dimer may be decreased with: Initiation of heparin therapy and oral anticoagulants. Mariam Woo LAB BLOOD ORDERABLES Chiquita l Result Performing Organization Address [facility]/ZIP Co de Phone Number [facility] [address] [place] [address], [place] [phone] * B-type natriuretic peptide (06/26/2024 7:56 PM EST) [facility] BNP <2 <=100 pcg/mL LAB CHEMISTRY METHOD 06/26/2024 9:12 PM EST [facility] Blood Venous blood specimen / Unknown Venipuncture / Unknown 06/26/2024 7:56 PM EST 06/26/2024 8:30 PM EST [facility] Lamont Woo LAB BLOOD ORDERABLES Chiquita l Result Performing Organization Address [facility]/ZIP Co de Phone Number [facility] [address] [place] [address], [place] [phone] * Magnesium (06/26/2024 7:56 PM EST) [facility] Magnesium 2.0 1.9 - 2.6 mg/dL LAB CHEMISTRY METHOD 06/26/2024 9:04 PM EST [facility] Blood Venous blood specimen / Unknown Venipuncture / Unknown 06/26/2024 7:56 PM EST 06/26/2024 8:30 PM EST [facility] LAB BLOOD ORDERABLES Chiquita l Result Performing Organization Address [facility]/ZIP Co de Phone Number [facility] [address] [place] [address], [place] [phone] * Lipase (06/26/2024 7:56 PM EST) [facility] Lipase 61 13 - 75 unit/L LAB CHEMISTRY METHOD 06/26/2024 9:04 PM [facility] Blood Venous blood specimen / Unknown Venipuncture / Unknown 06/26/2024 7:56 PM EST 06/26/2024 8:30 PM EST us Mariam Woo DO LAB BLOOD ORDERABLES Chiquita l Result [facility] [address] [place] [address], [place] [phone] * (ABNORMAL) Comprehensive metabolic panel (06/26/2024 7:56 PM EST) Sodium 136 133 - 145 mmol/L LAB CHEMISTRY METHOD 06/26/2024 9:04 PM [facility] Potassium 3.6 3.5 - 5.5 mmol/L LAB CHEMISTRY METHOD 06/26/2024 9:04 PM [facility] Chloride 105 96 - 110 mmol/L LAB CHEMISTRY METHOD 06/26/2024 9:04 PM [facility] CO2 24 21 - 32 mmol/L LAB CHEMISTRY METHOD 06/26/2024 9:04 PM [facility] Anion Gap 7 3 - 11 LAB CHEMISTRY METHOD 06/26/2024 9:04 PM [facility] Glucose 114(H) 70 - 100 mg/dL LAB CHEMISTRY METHOD 06/26/2024 9:04 PM [facility] BUN 15 5 - 25 mg/dL LAB CHEMISTRY METHOD 06/26/2024 9:04 PM [facility] Creatinine 0.94 0.70 - 1.30 mg/dL LAB CHEMISTRY METHOD 06/26/2024 9:04 PM [facility] eGFR 106 >=60 mL/min/1. 73m2 LAB CHEMISTRY METHOD 06/26/2024 9:04 PM [facility] Comment:Calculation based on the??Chronic Kidney Disease Epidemiology Collaboration (CKD-EPI) equation refit??without adjustment for race. BUN/Creatinine Ratio 16.0 LAB CHEMISTRY METHOD 06/26/2024 9:04 PM [facility] Calcium 9.8 8.5 - 10.5 mg/dL LAB CHEMISTRY METHOD 06/26/2024 9:04 PM [facility] AST (SGOT) 30 10 - 42 unit/L LAB CHEMISTRY METHOD 06/26/2024 9:04 PM [facility] ALT (SGPT) 51 10 - 60 unit/L LAB CHEMISTRY METHOD 06/26/2024 9:04 PM [facility] Alkaline Phosphatase 95 42 - 121 unit/L LAB CHEMISTRY METHOD 06/26/2024 9:04 PM [facility] Total Protein 7.9 6.0 - 8.0 g/dL LAB CHEMISTRY METHOD 06/26/2024 9:04 PM [facility] Albumin 4.6 3.2 - 5.0 g/dL LAB CHEMISTRY METHOD 06/26/2024 9:04 PM [facility] Total Bilirubin 0.5 0.0 - 1.4 mg/dL LAB CHEMISTRY METHOD 06/26/2024 9:04 PM [facility] Blood Venous blood specimen / Unknown Venipuncture / Unknown 06/26/2024 7:56 PM EST 06/26/2024 8:30 PM EST us Mariam Woo DO LAB BLOOD ORDERABLES Chiquita l Result [facility] [address] [place] [address], [place] [phone] * Troponin I high sensitivity (06/26/2024 7:56 PM EST) High Sensitivity Troponin I 4 <=79 ng/L LAB CHEMISTRY METHOD 06/26/2024 9:03 PM EST [facility] Blood Venous blood specimen / Unknown Venipuncture / Unknown 06/26/2024 7:56 PM EST 06/26/2024 8:30 PM EST Narrative [facility]) [facility] - 06/26/2024 9:03 PM EST High levels of biotin in samples may falsely decrease hsTroponin values. ??Use caution when interpreting hsTroponin results in patients taking biotin who exhibit renal impairment (eGFR <60) or in patients taking more than 20 mg/day of biotin. Mariam Lamont Jd Woo DO LAB BLOOD ORDERABLES Chiquita l Result Performing Organization Address City/[facility]/ZIP Co de Phone Number [facility] [address] [place] [address], [place] [phone] * ECG 12 lead (06/26/2024 7:45 PM EST) Ventricular Rate ECG 69 BPM GEMUSE Atrial Rate 69 BPM GEMUSE P-R Interval 132 ms GEMUSE QRS Duration 100 ms GEMUSE Q-T Interval 384 ms GEMUSE QTc 411 ms GEMUSE P Wave [place] 82 degrees GEMUSE R [place] 86 degrees GEMUSE T [place] 68 degrees GEMUSE ECG Interpretation Normal sinus [...]
--- OUTSIDE RECORDS SUMMARY | 2024-07-26 10:53 | XMS_ITS | Clinical Summary ---
Author Organization [facility] Address [address] [place] [address] Phone Care Team Providers Care Program Director Scouting Name Role Phone Physician, Pcp Unknown Primary [...] understand. He is going to see a shaker tender and tells me that he has stopped [...] sober since February 2016. [employer] for [employer]. 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 Encounters Date Type Department Care Team Description 07/12/2024 1:30 PM EST Consult Thoracic Surgery - [address] [place] [address] Estrella Galvan MD Lung cyst (Primary Dx) 06/28/2024 1:23 PM EST - 06/28/2024 7:13 PM EST Emergency [facility] Emergency [address] [place] [address] Chest pain, unspecified type (Primary Dx) Discharge Disposition: Home or Self Care 06/26/2024 7:29 PM EST - 06/26/2024 11:08 PM EST [facility] Emergency [address] [place] [address] Discharge Disposition: Home or Self Care from [...] History of drug abuse in rem ission ([facility]) 07/14/2018 DX:History of drug abuse in remission ([facility]); COMMENT: Clean & sober since February 2016. [employer] for [employer]. 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 Testing was negative for underlying seizure disorder Tobacco use 08/05/2018 DX:Tobacco use Hyperlipidemia LDL goal <160 DX: Hyperlipidemia LDL goal <160 Abdominal pain DX:Abdominal dilia n Constipation DX:Constipation Straining with stools DX:Straini ng with stools GERD (gastroesophageal reflux disease) Seizures ([facility]) 07/12/2024 Asbestos exposure 07/12/2024 Lung disease due to breathin g vapors or fumes ([facility]) 07/12/2024 diesel fumes Family History Medical History [...] LAB CHEMISTRY METHOD 06/28/2024 3:53 PM EST [facility] Blood Venous blood specimen / Unknown Venipuncture / Unknown 06/28/2024 2:43 PM EST 06/28/2024 3:10 PM EST Narrative [facility] - 06/28/2024 3:53 PM EST High levels of biotin in samples may falsely decrease hsTroponin values. ??Use caution when interpreting hsTroponin results in patients taking biotin who exhibit renal impairment (eGFR <60) or in patients taking more than 20 mg/day of biotin. us Chu Small MD LAB BLOOD ORDERABLES Chiquita tami Result [facility] [address] [place] [address], * ECG 12 lead (06/28/2024 2:40 PM EST) Only the most recent of4 resultswithin the time period is included. Ventricular Rate ECG 63 BPM GEMUSE Atrial Rate 63 BPM GEMUSE P-R Interval 134 ms GEMUSE QRS Duration 94 ms GEMUSE Q-T Interval 408 ms GEMUSE QTc 417 ms GEMUSE P Wave [place] 50 degrees GEMUSE R [place] 77 degrees GEMUSE T [place] 50 degrees GEMUSE ECG Interpretation Normal sinus [...] is included. Pathologist [facility] WBC 8.3 4.8 - 10.8 K/mcL LAB HEMETOLOGY METHOD 06/28/2024 2:41 PM EST [facility] RBC 5.00 4.50 - 5.50 M/mcL LAB HEMETOLOGY METHOD 06/28/2024 2:41 PM EST [facility] Hemoglobin 15.6 13.5 - 17.5 g/dL LAB HEMETOLOGY METHOD 06/28/2024 2:41 PM EST [facility] Hematocrit 45.4 42.0 - 54.0 % LAB HEMETOLOGY METHOD 06/28/2024 2:41 PM EST [facility] MCV 90.1 79.0 [...] LAB HEMETOLOGY METHOD 06/28/2024 2:41 PM EST [facility] Neutrophils Absolute 6.26 1.50 - 7.00 K/mcL LAB HEMETOLOGY METHOD 06/28/2024 2:41 PM EST [facility] Lymphocytes Absolute 1.44 1.00 - 5.00 K/mcL LAB HEMETOLOGY METHOD 06/28/2024 2:41 PM EST [facility] Monocytes Absolute 0.46 0.20 - 1.00 K/mcL LAB HEMETOLOGY METHOD 06/28/2024 2:41 PM EST [facility] Eosinophils Absolute 0.03 0.00 - 0.50 K/mcL LAB HEMETOLOGY METHOD 06/28/2024 2:41 PM EST [facility] Basophils Absolute 0.05 0.00 - 0.20 K/mcL LAB HEMETOLOGY METHOD 06/28/2024 2:41 PM [facility] Immature Granulocytes Absolute 0.03 0.00 - 0.03 K/mcL LAB HEMETOLOGY METHOD 06/28/2024 2:41 PM EST [facility] Blood Venous blood specimen / Unknown Venipuncture / Unknown 06/28/2024 1:36 PM EST 06/28/2024 2:04 PM EST us Chu Small MD LAB BLOOD ORDERABLES Chiquita l Result [facility] [address] [place] [address], * B-type natriuretic peptide (06/28/2024 1:36 PM EST) Only the most recent of2 resultswithin the time period is included. BNP <2 <=100 pcg/mL LAB CHEMISTRY METHOD 06/28/2024 2:50 PM EST [facility] Blood Venous blood specimen / Unknown Venipuncture / Unknown 06/28/2024 1:36 PM EST 06/28/2024 2:04 PM EST us Chu Small MD LAB BLOOD ORDERABLES Chiquita l Result Performing Organization Address City/[facility]/ZIP Co de Phone Number [facility] [address] [place] [address], [place] [phone] * Magnesium (06/28/2024 1:36 PM EST) Only the most recent of2 resultswithin the time period is included. Magnesium 2.2 1.9 - 2.6 mg/dL LAB CHEMISTRY METHOD 06/28/2024 2:58 PM EST [facility] Comment:Hemolysis present Blood Venous blood specimen / Unknown Venipuncture / Unknown 06/28/2024 1:36 PM EST 06/28/2024 2:04 PM EST us Chu Small MD LAB BLOOD ORDERABLES Chiquita l Result Performing Organization Address [facility] Co de Phone Number [facility] [address] [place] [address], [place] [phone] * Lipase (06/28/2024 1:36 PM EST) Only the most recent of2 resultswithin the time period is included. Lipase 41 13 - 75 unit/L LAB CHEMISTRY METHOD 06/28/2024 2:58 PM EST [facility] Blood Venous blood specimen / Unknown Venipuncture / Unknown 06/28/2024 1:36 PM EST 06/28/2024 2:04 PM EST us Chu Small MD LAB BLOOD ORDERABLES Chiquita l Result Performing Organization Address City/[facility]/ZIP Co de Phone Number [facility] [address] [place] [address], [place] [phone] * (ABNORMAL) Comprehensive metabolic panel (06/28/2024 1:36 [...] LAB CHEMISTRY METHOD 06/28/2024 2:58 PM EST [facility] Alkaline Phosphatase 86 42 - 121 unit/L LAB CHEMISTRY METHOD 06/28/2024 2:58 PM EST [facility] Total Protein 8.3(H) 6.0 - 8.0 g/dL LAB CHEMISTRY METHOD 06/28/2024 2:58 PM EST [facility] Albumin 4.9 3.2 - 5.0 g/dL LAB CHEMISTRY METHOD 06/28/2024 2:58 PM EST [facility] Total Bilirubin 0.8 0.0 - 1.4 mg/dL LAB CHEMISTRY METHOD 06/28/2024 2:58 PM EST [facility] Blood Venous blood specimen / Unknown Venipuncture / Unknown 06/28/2024 1:36 PM EST 06/28/2024 2:04 PM EST us Chu Small MD LAB BLOOD ORDERABLES Chiquita l Result [facility] [address] [place] [address], [place] [phone] * XR Chest 2 Views (06/26/2024 8:00 [...] Signed Date: 06/27/2024 07:18 ET Workstation ID: [id number] Transcribed By: Self Edit Transcribed Date: 06/27/2024 07:17 ET Narrative 06/27/2024 7:18 AM EST Examination: Chest 2 views. CLINICAL INDICATION: Chest pain. COMPARISON: Chest 07/28/2022. FINDINGS: The lungs are slightly hyperinflated but clear of acute pneumonic process. The heart size and vascularity is normal. No gross bony abnormality seen. Procedure Note Hemant Cahn MD - 06/27/2024 Examination: Chest 2 views. [...] Signed Date: 06/27/2024 07:18 ET Workstation ID: [id number] Transcribed By: Self Edit Transcribed Date: 06/27/2024 07:17 ET us Mariam Woo DO IMG XR PROCEDURES Final R esult * (ABNORMAL) D-dimer, quantitative (06/26/2024 7:56 PM EST) D-Dimer, Quant (D-DU) 252(H) <=230 ng/mL DDU LAB COAGULATION METHOD 06/26/2024 8:53 PM EST [facility] Blood Venous blood specimen / Unknown Venipuncture / Unknown 06/26/2024 7:56 PM EST 06/26/2024 8:30 PM EST [facility] - 06/26/2024 8:53 PM EST D-Dimer <230 ng/mL (D-Dimer units) is the threshold for exclusion of DVT/PE. D-Dimer may be elevated in: Critically ill, severely infected, trauma patients, DIC, acute CVA, acute CT, unstable angina, AF, old age, , and smoking. D-Dimer may be decreased with: Initiation of heparin therapy and oral anticoagulants. Mariam Lamont Miles Chilo DO LAB BLOOD ORDERABLES Chiquita l Result [facility] ([facility] [address] [place] [address], [place] [phone] * HIV Screening (09/20/2022) HIV Screening abstracted [...] Most Recently Relevant to Health Maintenance Insurance [facility]) Care Teams Program Director Scouting Relationship Specialty Start Date End Date Physician, Pcp Unknown PCP - General 06/28/24
--- OUTSIDE RECORDS SUMMARY | 2024-07-26 10:54 | XMS_ITS | Encounter Summary ---
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 He is going to see a harbor master and tells me that he has stopped vaping and smoking which I think is great and probably will help with his overall health. However at any follow-up is needed with me or any follow-up imaging is needed necessarily. * Estrella Galvan MD - 07/12/2024 1:30 PM EST NEW PATIENT CONSULTATION Name: Aguilar Ernie Carrasquillo : 1985 Date of Visit: 07/12/2024 Referring [...] infection History of drug abuse in remission ([facility]) 07/14/2018 DX:History of drug abuse in remission ([facility]); COMMENT: Clean & sober since February 2016. Clean slate for [employer]. 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 Testing was negative for underlying seizure disorder Hyperlipidemia LDL goal <160 DX:Hyperlipidemia LDL goal <160 Lung disease due to breathing vapors or fumes ([facility]) 07/12/2024 diesel fumes Seizures ([facility]) 07/12/2024 Straining with stools DX:Straining with stools [...] with family. Safe at home. 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 He is going to see a harbor master and tells me that he has stopped [...] 06/28/2024 07/12/2024 documented as of this encounter Orders Outpatient Referral Count Last Ordered Date Fir st Ordered Date AMB REFERRAL TO THORACIC SURGERY 1 07/21/19 25 documented in this encounter Care Teams Director Of Acquisitions Relationship Specialty Start Date End Date Physician, Pcp Unknown PCP - General 2/10/25 documented as of this encounter
== END 2024-07-26 10:20 | disposition home or self-care (01) ==
PROVIDERS: Visit Provider Internal Medicine Pulmonary Disease
DX: J43.9 Emphysema, unspecified (principal); J98.4 Other disorders of lung; Z91.09 Other allergy status, other than to drugs and biological substances; Z87.891 Personal history of nicotine dependence
CPT/HCPCS: 99204

== ENCOUNTER 2024-07-26 09:55 | Outpatient (REF) | payer BC, SELFPAY ==
[2024-07-26 10:35] LABS: MANUAL DIFF FLAG NO
[2024-07-26 10:51] LABS: Basophils Absolute Auto 0.1 X10*3/uL (0.0-0.2); Basophils Percent Auto 0.6 % (0-2); Eosinophils Absolute Auto 0.1 X10*3/uL (0.0-0.4); Eosinophils Percent Auto 1.4 % (0-4); Hematocrit 40.7 % (42.0-52.0); Hemoglobin 13.8 g/dl (14.0-18.0); Imm Gran Abs Auto 0.03 X10*3/uL (0.00-0.03); Imm Gran Pct Auto 0.3 % (0.0-0.4); Lymphocytes Absolute Auto 1.3 X10*3/uL (1.2-4.9); Lymphocytes Percent Auto 13.9 % (20-40); Mean Corpuscular HGB Conc 33.9 g/dl (31.0-36.0); Mean Corpuscular Hemoglobin 30.9 pg (27.0-33.0); Mean Corpuscular Volume 91.3 fL (80.0-98.0); Monocytes Absolute Auto 0.5 X10*3/uL (0.1-1.2); Monocytes Percent Auto 5.3 % (2-11); Neutrophils Absolute Auto 7.4 x10*3/uL (2.0-8.3); Neutrophils Percent Auto 78.5 % (45-73); Platelet Count 226 X10*3/uL (160-400); Red Blood Count 4.46 X10*6/uL (4.60-5.80); Red Cell Distribution Width 13.2 % (11.0-16.0); White Blood Count 9.4 X10*3/uL (4.8-10.8)
--- OUTSIDE RECORDS SUMMARY | 2024-07-26 11:43 | XMS_ITS | Encounter Summary ---
Author Organization [facility] Address [address] [place] [address] Care Team Providers Care Bindery Supervisor Name Role Phone Unavailable Primary Care Provider Unavailabl e Reason for Visit * Reason Comments Chest Pain X2 MONTHS Encounter Details Date Type Department Care Team (Late st Contact Info) Description 06/26/2024 7:29 PM EST - 06/26/2024 11:08 PM EST Emergency [facility] Emergency [address] [place] [address] Discharge Disposition: Home or Self [...] I high sensitivity (06/26/2024 9:43 PM EST) [facility] High Sensitivity Troponin I 4 <=79 ng/L LAB CHEMISTRY METHOD 06/26/2024 10:14 PM EST [facility] Blood Venous blood specimen / Unknown Venipuncture / Unknown 06/26/2024 9:43 PM EST 06/26/2024 9:48 PM EST Narrative [facility] - 06/26/2024 10:14 PM EST High levels of biotin in samples may falsely decrease hsTroponin values. ??Use caution when interpreting hsTroponin results in patients taking biotin who exhibit renal impairment (eGFR <60) or in patients taking more than 20 mg/day of biotin. us Mariam Woo DO LAB BLOOD ORDERABLES Chiquita l Result [facility] [address] [place] [address], [place] [phone] * ECG 12 lead (06/26/2024 9:36 PM EST) Ventricular Rate ECG 62 BPM GEMUSE Atrial Rate 62 BPM GEMUSE P-R Interval 132 ms GEMUSE QRS Duration 98 ms GEMUSE Q-T Interval 410 ms GEMUSE QTc 416 ms GEMUSE P Wave [place] 63 degrees GEMUSE R [place] 83 degrees GEMUSE T [place] 63 degrees GEMUSE ECG Interpretation Normal sinus [...] Signed Date: 06/27/2024 07:18 ET Workstation ID: [id number] Transcribed By: Self Edit Transcribed Date: 06/27/2024 [...] Signed Date: 06/27/2024 07:18 ET Workstation ID: [id number] Transcribed By: Self Edit Transcribed Date: 06/27/2024 07:17 ET us Mariam Woo DO IMG XR PROCEDURES Final R esult * CBC auto differential (06/26/2024 7:56 PM EST) WBC 9.9 4.8 - 10.8 K/mcL LAB HEMETOLOGY METHOD 06/26/2024 8:43 PM [facility] RBC 4.90 4.50 - 5.50 M/mcL LAB HEMETOLOGY METHOD 06/26/2024 8:43 PM [facility] Hemoglobin 15.0 13.5 - 17.5 g/dL LAB HEMETOLOGY METHOD 06/26/2024 8:43 PM [facility] Hematocrit 44.8 42.0 - 54.0 % LAB HEMETOLOGY METHOD 06/26/2024 8:43 PM [facility] MCV 92.0 79.0 - 98.0 FL LAB HEMETOLOGY METHOD 06/26/2024 8:43 PM [facility] MCH 30.8 27.0 - 32.0 pcg LAB HEMETOLOGY METHOD 06/26/2024 8:43 PM [facility] MCHC 33.5 32.0 - 37.0 g/dL LAB HEMETOLOGY METHOD 06/26/2024 8:43 PM [facility] RDW 12.4 11.0 - 15.0 % LAB HEMETOLOGY METHOD 06/26/2024 8:43 PM [facility] Platelets 269 130 - 400 K/mcL LAB HEMETOLOGY METHOD 06/26/2024 8:43 PM [facility] MPV 10.8 7.0 - 11.0 FL LAB HEMETOLOGY METHOD 06/26/2024 8:43 PM [facility] NRBC 0.0 <1.0 % LAB HEMETOLOGY METHOD 06/26/2024 8:43 PM [facility] NRBC Absolute 0.00 <0.10 K/mcL LAB HEMETOLOGY METHOD 06/26/2024 8:43 PM [facility] Neutrophils Relative 64.4 % LAB HEMETOLOGY METHOD 06/26/2024 8:43 PM [facility] Lymphocytes Relative 26.7 % LAB HEMETOLOGY METHOD 06/26/2024 8:43 PM [facility] Monocytes Relative 6.3 % LAB HEMETOLOGY METHOD 06/26/2024 8:43 PM [facility] Eosinophils Relative 1.8 % LAB HEMETOLOGY METHOD 06/26/2024 8:43 PM [facility] Basophils Relative 0.5 % LAB HEMETOLOGY METHOD 06/26/2024 8:43 PM [facility] Immature Granulocytes Relative 0.3 % LAB HEMETOLOGY METHOD 06/26/2024 8:43 PM [facility] Neutrophils Absolute 6.34 1.50 - 7.00 K/mcL LAB HEMETOLOGY METHOD 06/26/2024 8:43 PM [facility] Lymphocytes Absolute 2.63 1.00 - 5.00 K/mcL LAB HEMETOLOGY METHOD 06/26/2024 8:43 PM [facility] Monocytes Absolute 0.62 0.20 - 1.00 K/[facility] LAB HEMETOLOGY METHOD 06/26/2024 8:43 PM EST [facility] Eosinophils Absolute 0.18 0.00 - 0.50 K/[facility] LAB HEMETOLOGY METHOD 06/26/2024 8:43 PM EST [facility] Basophils Absolute 0.05 0.00 - 0.20 K/[facility] LAB HEMETOLOGY METHOD 06/26/2024 8:43 PM EST [facility] Immature Granulocytes Absolute 0.03 0.00 - 0.03 K/[facility] LAB HEMETOLOGY METHOD 06/26/2024 8:43 PM EST [facility] Blood Venous blood specimen / Unknown Venipuncture / Unknown 06/26/2024 7:56 PM EST 06/26/2024 8:30 PM EST us Mariam Woo DO LAB BLOOD ORDERABLES Chiquita l Result [facility] [address] [place] [address], [place] [phone] * (ABNORMAL) D-dimer, quantitative (06/26/2024 7:56 PM EST) D-Dimer, Quant (D-DU) 252(H) <=230 ng/mL DDU LAB COAGULATION METHOD 06/26/2024 8:53 PM EST [facility] Blood Venous blood specimen / Unknown Venipuncture / Unknown 06/26/2024 7:56 PM EST 06/26/2024 8:30 PM EST [facility] - 06/26/2024 8:53 PM EST D-Dimer <230 ng/mL (D-Dimer units) is the threshold for exclusion of DVT/PE. D-Dimer may be elevated in: Critically ill, severely infected, trauma patients, DIC, acute CVA, acute NH, unstable angina, AF, old age, , and smoking. D-Dimer may be decreased with: Initiation of heparin therapy and oral anticoagulants. Mariam Woo LAB BLOOD ORDERABLES Chiquita l Result Performing Organization Address [facility]/ZIP Co de Phone Number [facility] [address] [place] [address], [place] [phone] * B-type natriuretic peptide (06/26/2024 7:56 PM EST) [facility] BNP <2 <=100 pcg/mL LAB CHEMISTRY METHOD 06/26/2024 9:12 PM EST [facility] Blood Venous blood specimen / Unknown Venipuncture / Unknown 06/26/2024 7:56 PM EST 06/26/2024 8:30 PM EST [facility] Lamont Woo LAB BLOOD ORDERABLES Chiquita l Result Performing Organization Address [facility]/ZIP Co de Phone Number [facility] [address] [place] [address], [place] [phone] * Magnesium (06/26/2024 7:56 PM EST) [facility] Magnesium 2.0 1.9 - 2.6 mg/dL LAB CHEMISTRY METHOD 06/26/2024 9:04 PM EST [facility] Blood Venous blood specimen / Unknown Venipuncture / Unknown 06/26/2024 7:56 PM EST 06/26/2024 8:[address] [facility] BLOOD ORDERABLES Chiquita l Result Performing Organization Address [facility]/ZIP Co de Phone Number [facility] [address] [place] [address], [place] [phone] * Lipase (06/26/2024 7:56 PM EST) [facility] Lipase 61 13 - 75 unit/L LAB CHEMISTRY METHOD 06/26/2024 9:04 PM [facility] Blood Venous blood specimen / Unknown Venipuncture / Unknown 06/26/2024 7:56 PM EST 06/26/2024 8:30 PM EST us Mariam Woo DO LAB BLOOD ORDERABLES Chiquita l Result [facility] [address] [place] [address], [place] [phone] * (ABNORMAL) Comprehensive metabolic panel (06/26/2024 7:56 PM EST) Sodium 136 133 - 145 mmol/L LAB CHEMISTRY METHOD 06/26/2024 9:04 PM [facility] Potassium 3.6 3.5 - 5.5 mmol/L LAB CHEMISTRY METHOD 06/26/2024 9:04 PM [facility] Chloride 105 96 - 110 mmol/L LAB CHEMISTRY METHOD 06/26/2024 9:04 PM [facility] CO2 24 21 - 32 mmol/L LAB CHEMISTRY METHOD 06/26/2024 9:04 PM [facility] Anion Gap 7 3 - 11 LAB CHEMISTRY METHOD 06/26/2024 9:04 PM [facility] Glucose 114(H) 70 - 100 mg/dL LAB CHEMISTRY METHOD 06/26/2024 9:04 PM [facility] BUN 15 5 - 25 mg/dL LAB CHEMISTRY METHOD 06/26/2024 9:04 PM [facility] Creatinine 0.94 0.70 - 1.30 mg/dL LAB CHEMISTRY METHOD 06/26/2024 9:04 PM [facility] eGFR 106 >=60 mL/min/1. 73m2 LAB CHEMISTRY METHOD 06/26/2024 9:04 PM [facility] Comment:Calculation based on the??Chronic Kidney Disease Epidemiology Collaboration (CKD-EPI) equation refit??without adjustment for race. BUN/Creatinine Ratio 16.0 LAB CHEMISTRY METHOD 06/26/2024 9:04 PM [facility] Calcium 9.8 8.5 - 10.5 mg/dL LAB CHEMISTRY METHOD 06/26/2024 9:04 PM [facility] AST (SGOT) 30 10 - 42 unit/L LAB CHEMISTRY METHOD 06/26/2024 9:04 PM [facility] ALT (SGPT) 51 10 - 60 unit/L LAB CHEMISTRY METHOD 06/26/2024 9:04 PM [facility] Alkaline Phosphatase 95 42 - 121 unit/L LAB CHEMISTRY METHOD 06/26/2024 9:04 PM [facility] Total Protein 7.9 6.0 - 8.0 g/dL LAB CHEMISTRY METHOD 06/26/2024 9:04 PM [facility] Albumin 4.6 3.2 - 5.0 g/dL LAB CHEMISTRY METHOD 06/26/2024 9:04 PM [facility] Total Bilirubin 0.5 0.0 - 1.4 mg/dL LAB CHEMISTRY METHOD 06/26/2024 9:04 PM [facility] Blood Venous blood specimen / Unknown Venipuncture / Unknown 06/26/2024 7:56 PM EST 06/26/2024 8:30 PM EST us Mariam Woo DO LAB BLOOD ORDERABLES Chiquita l Result [facility] [address] [place] [address], [place] [phone] * Troponin I high sensitivity (06/26/2024 7:56 PM EST) High Sensitivity Troponin I 4 <=79 ng/L LAB CHEMISTRY METHOD 06/26/2024 9:03 PM EST [facility] Blood Venous blood specimen / Unknown Venipuncture / Unknown 06/26/2024 7:56 PM EST 06/26/2024 8:30 PM EST Narrative [facility] ([facility]) [facility] - 06/26/2024 9:03 PM EST High levels of biotin in samples may falsely decrease hsTroponin values. ??Use caution when interpreting hsTroponin results in patients taking biotin who exhibit renal impairment (eGFR <60) or in patients taking more than 20 mg/day of biotin. Mariam Lamont Jd Woo DO LAB BLOOD ORDERABLES Chiquita l Result Performing Organization Address City/[facility]/ZIP Co de Phone Number [facility] ([facility]) [facility] [address] [place] [address], [place] [phone] * ECG 12 lead (06/26/2024 7:45 PM EST) Ventricular Rate ECG 69 BPM GEMUSE Atrial Rate 69 BPM GEMUSE P-R Interval 132 ms GEMUSE QRS Duration 100 ms GEMUSE Q-T Interval 384 ms GEMUSE QTc 411 ms GEMUSE P Wave [place] 82 degrees GEMUSE R [place] 86 degrees GEMUSE T [place] 68 degrees GEMUSE ECG Interpretation Normal sinus [...]
--- OUTSIDE RECORDS SUMMARY | 2024-07-26 11:43 | XMS_ITS | Encounter Summary ---
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 Encounter Details Date Type Department Care Team (Late st Contact Info) Description 06/28/2024 1:23 PM EST - 06/28/2024 7:13 PM EST Emergency [facility] Emergency [address] [place] [id number] Chest pain, unspecified type (Primary Dx) Discharge [...] or any other concern. Get well soon! [facility] Primary Care & Specialty Office Locations [place] [phone] [place] [phone] [place] ([address] [phone] [place] ([address]) [phone] Orthopedics: [phone] Thank you for coming to the [facility] Emergency Department today. Our entire team [...] sent through Care Everywhere. * Chest Pain ([place]) documented in this encounter Medications at Time [...] from the original note were not included. 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 Clean slate for [employer]. 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 ED EKG: Encounter Date: 06/28/24 ECG 12 lead Result Value Ventricular Rate ECG 63 Atrial Rate 63 P-R Interval 134 QRS Duration 94 Q-T Interval 408 QTc 417 P Wave [place] 50 R [place] 77 T [place] 50 ECG Interpretation Normal sinus rhythm Normal [...] unremarkable. No acute fractures Procedure Note Pepito Srivsatava MD - 06/28/2024 INDICATION: chest pain, dyspnea, [...] ORDERABLES Chiquita l Result Performing Organization Address City/[facility]/ZIP Co de Phone Number [facility] [address] [place] [address], [place] [phone] * ECG 12 lead (06/28/2024 2:40 PM EST) Ventricular Rate ECG 63 BPM GEMUSE Atrial Rate 63 BPM GEMUSE P-R Interval 134 ms GEMUSE QRS Duration 94 ms GEMUSE Q-T Interval 408 ms GEMUSE QTc 417 ms GEMUSE P Wave [place] 50 degrees GEMUSE R [place] 77 degrees GEMUSE T [place] 50 degrees GEMUSE ECG Interpretation Normal sinus rhythm Normal ECG When compared with ECG of 28-JUN-2024 12:27, (unconfirmed) No significant change was found Confirmed by Diogo HAYWOOD JAMES ([id number]) on 06/28/2024 6:39:11 PM GEMUSE 06/28/2024 2:40 PM EST 06/28/2024 6:39 PM EST us Chu Small MD ECG ORDERABLES Final Res ult Performing Organization Address City/[facility]/ZIP Co de Phone Number GEMUSE * (ABNORMAL) CBC auto differential (06/28/2024 1:36 PM EST) WBC 8.3 4.8 - 10.8 K/[facility] HEMETOLOGY METHOD 06/28/2024 2:41 PM [facility] RBC 5.00 4.50 - 5.50 M/mcL LAB HEMETOLOGY METHOD 06/28/2024 2:41 PM [facility] Hemoglobin 15.6 13.5 - 17.5 g/dL LAB HEMETOLOGY METHOD 06/28/2024 2:41 PM [facility] Hematocrit 45.4 42.0 - 54.0 % LAB HEMETOLOGY METHOD 06/28/2024 2:41 PM [facility] MCV 90.1 79.0 - 98.0 FL LAB HEMETOLOGY METHOD 06/28/2024 2:41 PM [facility] MCH 31.0 27.0 - 32.0 pcg LAB HEMETOLOGY METHOD 06/28/2024 2:41 PM [facility] MCHC 34.4 32.0 - 37.0 g/dL LAB HEMETOLOGY METHOD 06/28/2024 2:41 PM [facility] RDW 12.3 11.0 - 15.0 % LAB HEMETOLOGY METHOD 06/28/2024 2:41 PM [facility] Platelets 235 130 - 400 K/mcL LAB HEMETOLOGY METHOD 06/28/2024 2:41 PM [facility] MPV 11.5(H) 7.0 - 11.0 FL LAB HEMETOLOGY METHOD 06/28/2024 2:41 PM [facility] NRBC 0.0 <1.0 % LAB HEMETOLOGY METHOD 06/28/2024 2:41 PM [facility] NRBC Absolute 0.00 <0.10 K/mcL LAB HEMETOLOGY METHOD 06/28/2024 2:41 PM [facility] Neutrophils Relative 75.6 % LAB HEMETOLOGY METHOD 06/28/2024 2:41 PM [facility] Lymphocytes Relative 17.4 % LAB HEMETOLOGY METHOD 06/28/2024 2:41 PM [facility] Monocytes Relative 5.6 % LAB HEMETOLOGY METHOD 06/28/2024 2:41 PM [facility] Eosinophils Relative 0.4 % LAB HEMETOLOGY METHOD 06/28/2024 2:41 PM [facility] Basophils Relative 0.6 % LAB HEMETOLOGY METHOD 06/28/2024 2:41 PM [facility] Immature Granulocytes Relative 0.4 % LAB HEMETOLOGY METHOD 06/28/2024 2:41 PM [facility] Neutrophils Absolute 6.26 1.50 - 7.00 K/mcL LAB HEMETOLOGY METHOD 06/28/2024 2:41 PM [facility] Lymphocytes Absolute 1.44 1.00 - 5.00 K/mcL LAB HEMETOLOGY METHOD 06/28/2024 2:41 PM [facility] Monocytes Absolute 0.46 0.20 - 1.00 K/mcL LAB HEMETOLOGY METHOD 06/28/2024 2:41 PM [facility] Eosinophils Absolute 0.03 0.00 - 0.50 K/mcL LAB HEMETOLOGY METHOD 06/28/2024 2:41 PM [facility] Basophils Absolute 0.05 0.00 - 0.20 K/mcL LAB HEMETOLOGY METHOD 06/28/2024 2:41 PM [facility] Immature Granulocytes Absolute 0.03 0.00 - 0.03 K/mcL LAB HEMETOLOGY METHOD 06/28/2024 2:41 PM [facility] Blood Venous blood specimen / Unknown Venipuncture / Unknown 06/28/2024 1:36 PM EST 06/28/2024 2:04 PM EST us Chu Small MD LAB BLOOD ORDERABLES Chiquita l Result Performing Organization Address [facility]/ZIP Co de Phone Number [facility] [address] [place] [address], [place] [phone] * B-type natriuretic peptide (06/28/2024 1:36 PM EST) [facility] BNP <2 <=100 pcg/mL LAB CHEMISTRY METHOD 06/28/2024 2:50 PM EST [facility] Blood Venous blood specimen / Unknown Venipuncture / Unknown 06/28/2024 1:36 PM EST 06/28/2024 2:04 PM EST Chu Small MD LAB BLOOD ORDERABLES Chiquita l Result Performing Organization Address [facility] Co de Phone Number [facility] [address] [place] [address], * Magnesium (06/28/2024 1:36 PM EST) [facility] Magnesium 2.2 1.9 - 2.6 mg/dL LAB CHEMISTRY METHOD 06/28/2024 2:58 PM EST [facility] Comment:Hemolysis present Blood Venous blood specimen / Unknown Venipuncture / Unknown 06/28/2024 1:36 PM EST 06/28/2024 2:04 PM EST Chu Small MD LAB BLOOD ORDERABLES Chiquita l Result Performing Organization Address City/[facility]/ZIP Co de Phone Number [facility] [address] [place] [address], [place] [phone] * Lipase (06/28/2024 1:36 PM EST) [facility] Lipase 41 13 - 75 unit/L LAB CHEMISTRY METHOD 06/28/2024 2:58 PM EST [facility] Blood Venous blood specimen / Unknown Venipuncture / Unknown 06/28/2024 1:36 PM EST 06/28/2024 2:04 PM EST us Chu Small MD LAB BLOOD ORDERABLES Chiquita tami Result [facility] [address] [place] [address], [place] [phone] * (ABNORMAL) Comprehensive metabolic panel (06/28/2024 1:36 PM EST) Sodium 136 133 - 145 mmol/L LAB CHEMISTRY METHOD 06/28/2024 2:58 PM EST [facility] Potassium 4.2 3.5 - 5.5 mmol/L LAB CHEMISTRY METHOD 06/28/2024 2:58 PM [facility] Comment:Hemolysis present Chloride 102 96 - 110 mmol/L LAB CHEMISTRY METHOD 06/28/2024 2:58 PM [facility] CO2 25 21 - 32 mmol/L LAB CHEMISTRY METHOD 06/28/2024 2:58 PM [facility] Anion Gap 9 3 - 11 LAB CHEMISTRY METHOD 06/28/2024 2:58 PM [facility] Glucose 85 70 - 100 mg/dL LAB CHEMISTRY METHOD 06/28/2024 2:58 PM [facility] BUN 12 5 - 25 mg/dL LAB CHEMISTRY METHOD 06/28/2024 2:58 PM [facility] Creatinine 0.94 0.70 - 1.30 mg/dL LAB CHEMISTRY METHOD 06/28/2024 2:58 PM [facility] eGFR 106 >=60 mL/min/1. 73m2 LAB CHEMISTRY METHOD 06/28/2024 2:58 PM [facility] Comment:Calculation based on the??Chronic Kidney Disease Epidemiology Collaboration (CKD-EPI) equation refit??without adjustment for race. BUN/Creatinine Ratio 12.8 LAB CHEMISTRY METHOD 06/28/2024 2:58 PM [facility] Calcium 10.3 8.5 - 10.5 mg/dL LAB CHEMISTRY METHOD 06/28/2024 2:58 PM EST [facility] AST (SGOT) 25 10 - 42 unit/L LAB CHEMISTRY METHOD 06/28/2024 2:58 PM [facility] Comment:Hemolysis present ALT (SGPT) 41 10 - 60 unit/L LAB CHEMISTRY METHOD 06/28/2024 2:58 PM [facility] Alkaline Phosphatase 86 42 - 121 unit/L LAB CHEMISTRY METHOD 06/28/2024 2:58 PM [facility] Total Protein 8.3(H) 6.0 - 8.0 g/dL LAB CHEMISTRY METHOD 06/28/2024 2:58 PM [facility] Albumin 4.9 3.2 - 5.0 g/dL LAB CHEMISTRY METHOD 06/28/2024 2:58 PM [facility] Total Bilirubin 0.8 0.0 - 1.4 mg/dL LAB CHEMISTRY METHOD 06/28/2024 2:58 PM EST [facility] Blood Venous blood specimen / Unknown Venipuncture / Unknown 06/28/2024 1:36 PM EST 06/28/2024 2:04 PM EST us Chu Small MD LAB BLOOD ORDERABLES Chiquita l Result [facility] [address] [place] [address], * Troponin I high sensitivity (06/28/2024 1:36 PM EST) High Sensitivity Troponin I 4 <=79 ng/L LAB CHEMISTRY METHOD 06/28/2024 2:42 PM EST [facility] Blood Venous blood specimen / Unknown Venipuncture / Unknown 06/28/2024 1:36 PM EST 06/28/2024 2:04 PM EST Narrative [facility] ([facility]) [facility] - 06/28/2024 2:42 PM EST High levels of biotin in samples may falsely decrease hsTroponin values. ??Use caution when interpreting hsTroponin results in patients taking biotin who exhibit renal impairment (eGFR <60) or in patients taking more than 20 mg/day of biotin. Chu Small MD LAB BLOOD ORDERABLES Chiquita l Result Performing Organization Address [facility] Co de Phone Number [facility]) [facility] [address] [place] [address], [place] [phone] * ECG 12 lead (06/28/2024 12:27 PM EST) Ventricular Rate ECG 65 BPM GEMUSE Atrial Rate 65 BPM GEMUSE P-R Interval 138 ms GEMUSE QRS Duration 100 ms GEMUSE Q-T Interval 398 ms GEMUSE QTc 413 ms GEMUSE P Wave [place] 75 degrees GEMUSE R [place] 87 degrees GEMUSE T [place] 56 degrees GEMUSE ECG Interpretation Normal sinus rhythm Normal ECG When compared with ECG of 26-JUN-2024 21:36, No significant change was found Confirmed by Diogo HAYWOOD JAMES ([id number]) on 06/28/2024 6:37:34 PM GEMUSE 06/28/2024 12:2 7 PM EST 06/28/2024 6:37 PM EST Chu Small MD ECG ORDERABLES Final Res ult Performing Organization Address [facility] Co de Phone Number GEMUSE [...] [place]) documented in this encounter Care Teams Flosser Relationship Specialty Start Date End Date Physician, Pcp Unknown PCP - General 06/28/24 documented as of this encounter
--- OUTSIDE RECORDS SUMMARY | 2024-07-26 11:44 | XMS_ITS | Encounter Summary ---
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 Safe at home. 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 He is going to see a special forces weapons sergeant and tells me that he has stopped [...] 25 documented in this encounter Care Teams Fashion Buyer Relationship Specialty Start Date End Date Physician, Pcp Unknown PCP - General 2/10/25 documented as of this encounter
--- OUTSIDE RECORDS SUMMARY | 2024-07-26 11:44 | XMS_ITS | Clinical Summary ---
Author Organization [facility] Address [address] [place] [address] Phone Care Team Providers Care Assistant Terminal Manager Name Role Phone Physician, Pcp Unknown [...] understand. He is going to see a church warden and tells me that he has stopped [...] sober since February 2016. 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 Encounters Date Type Department Care Team Description 07/12/2024 1:30 PM EST Consult Thoracic Surgery - [address] [place] [address] Estrella Galvan MD Lung cyst (Primary Dx) 06/28/2024 1:23 PM EST - 06/28/2024 7:13 PM EST Emergency [facility] Emergency [address] [place] [address] Chest pain, unspecified type (Primary Dx) Discharge Disposition: Home or Self Care 06/26/2024 7:29 PM EST - 06/26/2024 11:08 PM EST [facility] Emergency [address] [place] [address] Discharge Disposition: Home or Self Care from [...] History of drug abuse in rem ission ([facility]) 07/14/2018 DX:History of drug abuse in remission ([facility]); COMMENT: Clean & sober since February 2016. 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 Testing was negative for underlying seizure disorder Tobacco use 08/05/2018 DX:Tobacco use Hyperlipidemia LDL goal <160 DX: Hyperlipidemia LDL goal <160 Abdominal pain DX:Abdominal dilia n Constipation DX:Constipation Straining with stools DX:Straini ng with stools GERD (gastroesophageal reflux disease) Seizures [place] 07/12/2024 Asbestos exposure 07/12/2024 Lung disease due to breathin g vapors or fumes ([facility] 07/12/2024 diesel fumes Family History Medical History [...] LAB CHEMISTRY METHOD 06/28/2024 3:53 PM EST [facility] Blood Venous blood specimen / Unknown Venipuncture / Unknown 06/28/2024 2:43 PM EST 06/28/2024 3:10 PM EST Narrative [facility] - 06/28/2024 3:53 PM EST High levels of biotin in samples may falsely decrease hsTroponin values. ??Use caution when interpreting hsTroponin results in patients taking biotin who exhibit renal impairment (eGFR <60) or in patients taking more than 20 mg/day of biotin. us Chu Small MD LAB BLOOD ORDERABLES Chiquita tami Result [facility] [address] [place] [address], * ECG 12 lead (06/28/2024 2:40 PM EST) Only the most recent of4 resultswithin the time period is included. Ventricular Rate ECG 63 BPM GEMUSE Atrial Rate 63 BPM GEMUSE P-R Interval 134 ms GEMUSE QRS Duration 94 ms GEMUSE Q-T Interval 408 ms GEMUSE QTc 417 ms GEMUSE P Wave Moreland 50 degrees GEMUSE R Moreland 77 degrees GEMUSE T Moreland 50 degrees GEMUSE ECG Interpretation Normal sinus [...] the time period is included. Pathologist [facility] WBC 8.3 4.8 - 10.8 K/mcL LAB HEMETOLOGY METHOD 06/28/2024 2:41 PM EST [facility] RBC 5.00 4.50 - 5.50 M/mcL LAB HEMETOLOGY METHOD 06/28/2024 2:41 PM EST [facility] Hemoglobin 15.6 13.5 - 17.5 g/dL LAB HEMETOLOGY METHOD 06/28/2024 2:41 PM EST [facility] Hematocrit 45.4 42.0 - 54.0 % LAB HEMETOLOGY METHOD 06/28/2024 2:41 PM EST [facility] MCV 90.1 79.0 [...] LAB HEMETOLOGY METHOD 06/28/2024 2:41 PM EST [facility] Neutrophils Absolute 6.26 1.50 - 7.00 K/mcL LAB HEMETOLOGY METHOD 06/28/2024 2:41 PM EST [facility] Lymphocytes Absolute 1.44 1.00 - 5.00 K/mcL LAB HEMETOLOGY METHOD 06/28/2024 2:41 PM EST [facility] Monocytes Absolute 0.46 0.20 - 1.00 K/mcL LAB HEMETOLOGY METHOD 06/28/2024 2:41 PM EST [facility] Eosinophils Absolute 0.03 0.00 - 0.50 K/mcL LAB HEMETOLOGY METHOD 06/28/2024 2:41 PM EST [facility] Basophils Absolute 0.05 0.00 - 0.20 K/mcL LAB HEMETOLOGY METHOD 06/28/2024 2:41 PM [facility] Immature Granulocytes Absolute 0.03 0.00 - 0.03 K/mcL LAB HEMETOLOGY METHOD 06/28/2024 2:41 PM EST [facility] Blood Venous blood specimen / Unknown Venipuncture / Unknown 06/28/2024 1:36 PM EST 06/28/2024 2:04 PM EST us Chu Small MD LAB BLOOD ORDERABLES Chiquita l Result [facility] [address] [place] [address], * B-type natriuretic peptide (06/28/2024 1:36 PM EST) Only the most recent of2 resultswithin the time period is included. BNP <2 <=100 pcg/mL LAB CHEMISTRY METHOD 06/28/2024 2:50 PM EST [facility] Blood Venous blood specimen / Unknown Venipuncture / Unknown 06/28/2024 1:36 PM EST 06/28/2024 2:04 PM EST us Chu Small MD LAB BLOOD ORDERABLES Chiquita l Result Performing Organization Address City/[facility]/ZIP Co de Phone Number [facility] [address] [place] [address], [place] [phone] * Magnesium (06/28/2024 1:36 PM EST) Only the most recent of2 resultswithin the time period is included. Magnesium 2.2 1.9 - 2.6 mg/dL LAB CHEMISTRY METHOD 06/28/2024 2:58 PM EST [facility] Comment:Hemolysis present Blood Venous blood specimen / Unknown Venipuncture / Unknown 06/28/2024 1:36 PM EST 06/28/2024 2:04 PM EST us Chu Small MD LAB BLOOD ORDERABLES Chiquita l Result Performing Organization Address [facility] Co de Phone Number [facility] [address] [place] [address], [place] [phone] * Lipase (06/28/2024 1:36 PM EST) Only the most recent of2 resultswithin the time period is included. Lipase 41 13 - 75 unit/L LAB CHEMISTRY METHOD 06/28/2024 2:58 PM EST [facility] Blood Venous blood specimen / Unknown Venipuncture / Unknown 06/28/2024 1:36 PM EST 06/28/2024 2:04 PM EST us Chu Small MD LAB BLOOD ORDERABLES Chiquita l Result Performing Organization Address City/[facility]/ZIP Co de Phone Number [facility] [address] [place] [address], [place] [phone] * (ABNORMAL) Comprehensive metabolic panel (06/28/2024 1:36 [...] LAB CHEMISTRY METHOD 06/28/2024 2:58 PM EST [facility] Alkaline Phosphatase 86 42 - 121 unit/L LAB CHEMISTRY METHOD 06/28/2024 2:58 PM EST [facility] Total Protein 8.3(H) 6.0 - 8.0 g/dL LAB CHEMISTRY METHOD 06/28/2024 2:58 PM EST [facility] Albumin 4.9 3.2 - 5.0 g/dL LAB CHEMISTRY METHOD 06/28/2024 2:58 PM EST [facility] Total Bilirubin 0.8 0.0 - 1.4 mg/dL LAB CHEMISTRY METHOD 06/28/2024 2:58 PM EST [facility] Blood Venous blood specimen / Unknown Venipuncture / Unknown 06/28/2024 1:36 PM EST 06/28/2024 2:04 PM EST us Chu Small MD LAB BLOOD ORDERABLES Chiquita l Result [facility] [address] [place] [address], [place] [phone] * XR Chest 2 Views (06/26/2024 8:00 [...] Signed Date: 06/27/2024 07:18 ET Workstation ID: [id number] Transcribed By: Self Edit Transcribed Date: 06/27/2024 [...] Signed Date: 06/27/2024 07:18 ET Workstation ID: [id number] Transcribed By: Self Edit Transcribed Date: 06/27/2024 07:17 ET us Mariam Woo DO IMG XR PROCEDURES Final R esult * (ABNORMAL) D-dimer, quantitative (06/26/2024 7:56 PM EST) D-Dimer, Quant (D-DU) 252(H) <=230 ng/mL DDU LAB COAGULATION METHOD 06/26/2024 8:53 PM EST [facility] Blood Venous blood specimen / Unknown Venipuncture / Unknown 06/26/2024 7:56 PM EST 06/26/2024 8:30 PM EST [facility] - 06/26/2024 8:53 PM EST D-Dimer <230 ng/mL (D-Dimer units) is the threshold for exclusion of DVT/PE. D-Dimer may be elevated in: Critically ill, severely infected, trauma patients, DIC, acute CVA, acute AR, unstable angina, AF, old age, , and smoking. D-Dimer may be decreased with: Initiation of heparin therapy and oral anticoagulants. Mariam Lamont Miles Chilo DO LAB BLOOD ORDERABLES Chiquita l Result [facility] ([facility]) [facility] [address] [place] [address], [place] [phone] * HIV Screening (09/20/2022) HIV Screening abstracted [...] Most Recently Relevant to Health Maintenance Insurance [facility] ([facility]) Care Teams Assistant Terminal Manager Relationship Specialty Start Date End Date Physician, Pcp Unknown PCP - General 06/28/24
[2024-07-31 04:38] LABS: Class Alternaria alternata 0; Class Aspergillus fumigatus 0; Class Bermuda Grass 0; Class Birch 0; Class Cat Dander 0; Class Cladosporium herbarum 0; Class Cockroach 0; Class Common Ragweed 0; Class Cottonwood 0; Class Derm. pterony 0; Class Dermatophagoides farinae 0; Class Dog Dander 0; Class Elm 0; Class Maple Box Elder 0; Class Mountain Cedar 0; Class Mouse Urine Protein 0; Class Mugwort 0; Class Oak 0; Class Penicillium crysogenum 0; Class Rough Pigweed 0; Class Sheep Sorrel 0; Class Sycamore 0; Class Timothy Grass 0; Class Walnut Tree 0; Class White Ash 0; Class White Mulberry 0; D001 IgE D pteronyssinus <0.10 kU/L; D002 - IgE D farinae <0.10 kU/L; E001 - IgE Cat Dander <0.10 kU/L; E005 - IgE Dog Dander <0.10 kU/L; E072-IgE Mouse Urine <0.10 kU/L; G002 IgE Bermuda Grass <0.10 kU/L; G006 - IgE Timothy Grass <0.10 kU/L; I006-IgE Cockroach, German <0.10 kU/L; Immunoglobulin E 21 kU/L (<OR=114); M001 IgE Penicillium chrysogen <0.10 kU/L; M002 - IgE Cladosporium herbar <0.10 kU/L; M003 - IgE Aspergillus fumigat <0.10 kU/L; M006 - IgE Alternaria alternat <0.10 kU/L; T001 IgE Maple/Box Elder <0.10 kU/L; T003 IgE Common Silver Birch <0.10 kU/L; T006 - IgE Cedar, Mountain <0.10 kU/L; T007 - IgE Oak, White <0.10 kU/L; T008 IgE Elm, American <0.10 kU/L; T010 - IgE Walnut <0.10 kU/L; T011 - IgE Maple Leaf Sycamore <0.10 kU/L; T014 - IgE Cottonwood <0.10 kU/L; T015 - IgE Ash, White <0.10 kU/L; T070 - IgE White Mulberry <0.10 kU/L; W001 - IgE Ragweed, Short <0.10 kU/L; W006 - IgE Mugwort <0.10 kU/L; W014 IgE Pigweed, Common <0.10 kU/L; W018 IgE Sheep Sorrel <0.10 kU/L
== END 2024-07-26 09:56 | disposition home or self-care (01) ==
LOC: HO.LAB 09:55
PROVIDERS: Visit Provider Internal Medicine Pulmonary Disease
DX: Z91.09 Other allergy status, other than to drugs and biological substances (principal)
CPT/HCPCS: 36415; 82785; 85025; 86003

== ENCOUNTER 2024-09-24 09:07 | Outpatient (REF) | payer OTHER, SELFPAY ==
--- NOTE | 2024-09-24 09:48 | PFT_ITS ---
Indication emphysema Spirometry [FEV1 to FVC 77%; FEV1 4.85 L; FVC 6.33 L. No significant response to bronchodilators noted.] Lung Volumes [Total lung capacity 116% predicted; residual volume 131% predicted] Diffusion Capacity [DLCO 90% predicted] Comparisons [none] Interpretation [No obstructive nor restrictive ventilatory defects identified. No significant response to bronchodilators noted. Lung volumes demonstrating a trend of hyperinflation and significant air trapping. Diffusion capacity is within normal limits. If asthma is in differential methacholine challenge may be helpful in assessing for her reactive airways. Clinical correlation warranted.] MTDD
[2024-09-24 09:50] VITALS: PULSE 90; O2SAT 100
== END 2024-09-24 09:08 | disposition home or self-care (01) ==
LOC: HO.RESP 09:07
PROVIDERS: Visit Provider Internal Medicine Pulmonary Disease
DX: J43.9 Emphysema, unspecified (principal)
CPT/HCPCS: 94010; 94640; 94727; 94729

== ENCOUNTER → 2024-09-24 09:48 | Outpatient (BNV) | payer OTHER, SELFPAY | PROVIDERS: Visit Provider Hospitalist | DX: J43.9 Emphysema, unspecified (principal) | CPT/HCPCS: 94060; 94727; 94729 ==

== ENCOUNTER 2024-10-04 14:01 | Outpatient (REF) | payer OTHER, SELFPAY ==
--- OUTSIDE RECORDS SUMMARY | 2024-10-04 14:05 | XMS_ITS | Clinical Summary ---
Author Organization [facility] Address [address] [place] [address] Phone Care Team Providers Care Hearing Aid Fitter Name Role Phone Physician, Pcp Unknown Primary Care Provider Kaylin vailable Allergies Active Allergy Reactions Criticality Noted Date Comments Nickel 05/18/2020 Other Reaction(s): Rash/Dermatitis silver Medications nicotine polacrilex (NICORETTE) [address] 1 each (2 mg total) into mouth between cheek and gum every 2 (two) hours if needed for smoking cessation for up to 4 days. 48 each 5 Active Active Problems Problem Noted Date Diagnosed [...] understand. He is going to see a web development instructor and tells me that he has stopped vaping and smoking which I think is great and probably will help with his overall health. However at any follow-up is needed with me or any follow-up imaging is needed necessarily. Hyperlipidemia LDL goal <160 05/18/2024 Erectile dysfunction 09/24/2022 Herpes simplex type 1 infection 08/05/2018 Eczema 07/14/2018 History of drug abuse in rem ission ([facility]) 07/14/2018 Overview (05/18/2024): Clean & sober since February 2016. 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 Testing was negative for underlying seizure disorder Tobacco use 08/05/2018 DX:Tobacco use Hyperlipidemia LDL goal <160 DX: Hyperlipidemia LDL goal <160 Abdominal pain DX:Abdominal dilia n Constipation DX:Constipation Straining with stools DX:Straini ng with stools GERD (gastroesophageal reflux disease) Seizures ([facility] V[facility], [facility] V28) 07/12/2024 Asbestos exposure 07/12/2024 Lung disease due to breathin g vapors or fumes ([facility] V24, [facility] V28) 07/12/2024 diesel fumes Family History Medical History [...] Date Smoking Tobacco: Every Day Cigarettes 0.8 25.4 Started: 05/19/1999 Smokeless Tobacco: Never Alcohol Use [...] - 2023-2 5 season) 2024 Influenza Vaccine (Season Ended) 2025 DTaP,Tdap,and Td Vaccines (2 - Td or [...] age to complete this topic Meningococcal B Vaccine Aged Out No l onger eligible based on patient's age to complete this topic RSV Immunization Patients Un viktoria 20 months Aged Out No longer eligible b ased on patient's age to complete this topic Varicella Vaccines Aged Out No longer eligible based on patient's age to complete this topic Procedures Procedure Name Priority Date/Time Associated Diagnosis Comments HEPATITIS C SCREENING Routine 09/20/2022 HIV SCREENING Routine 09/20/2022 LIPID PANEL Routine 09/20/2022 from Last 3 Months or Most Recently Relevant to Health Maintenance Results * HIV Screening (09/20/2022) Pathologist [facility] HIV Screening abstracted [facility] Provider HEALTH MAINTENANCE Final Result * Hepatitis C Screening (09/20/2022) [facility] Hepatitis C Screening abstracted [facility] Provider HEALTH MAINTENANCE Final Result * (ABNORMAL) Lipid panel (09/20/2022) [facility] LDL/HDL Ratio 4 0 - 4 Triglycerides 95 0 - 150 mg/dL Cholesterol 248(A) 0 - 200 mg/dL HDL 57 >=40 mg/dL LDL Cholesterol 172(A) 0 - 100 mg/dL Blood Venous blood specimen / Unknown [facility] Provider LAB BLOOD ORDERABLES Chiquita l Result from Last 3 Months or Most Recently Relevant to Health Maintenance Insurance [facility] ([facility]) Care Teams Hearing Aid Fitter Relationship Specialty Start Date End Date Physician, Pcp Unknown PCP - General 06/28/24
== END 2024-10-04 14:02 | disposition home or self-care (01) ==
LOC: HO.RESP 14:01
PROVIDERS: Visit Provider Internal Medicine Pulmonary Disease
DX: J45.909 Unspecified asthma, uncomplicated (principal); J43.9 Emphysema, unspecified; J98.4 Other disorders of lung; Z87.891 Personal history of nicotine dependence; Z79.51 Long term (current) use of inhaled steroids
CPT/HCPCS: 99212

== ENCOUNTER 2024-10-04 14:02 | Outpatient (AMB) | payer OTHER, SELFPAY ==
--- NOTE | 2024-10-04 14:06 | MHC.OFFVIS ---
Vital Signs 10/04/24 14:07 Height 5 ft 11 in Weight 202 lb BMI 28.2 BP 124/64 Blood Pressure Location Rt brachial Position Sitting Pulse 93 Pulse Source Pulse Oximeter Pulse Oximetry (%) 98 Oxygen Delivery Method Room Air Intake Visit Reasons: emphysema Allergies No Known Allergies Allergy (Verified 07/14/24 10:20) HPI HPI emphysema: Details: 39-year-old gentleman former 20+ pack-year smoker, also vaped nicotine components quit within last few months, referred for evaluation of emphysema and several lung cysts noted on CT scan performed [facility]. Patient states that he also was evaluated by thoracic surgery at [facility] and told that his cysts are not malignant and do not need to be biopsied. He does complain of intermittent dyspnea on exertion. Patient does have underlying history of eczema and environmental allergies. He has history of asthma in his mother. Patient does have a dog. 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 After the last office visit patient was started on Spiriva with good control of his symptoms. Patient had his pulmonary function test that was essentially normal. His immunologic workup also has been essentially unrevealing. [facility] Medical History (Updated 10/04/24 @ 15:12 by Alessandro Daniels MD) Eczema Asthma Seizure Herpes simplex type 1 infection Nicotine dependence HLD (hyperlipidemia) Surgical History History of wisdom tooth extraction History of tonsillectomy History of foot surgery Family History (Updated 07/17/24 @ 20:39 by JONATHAN Ramos) Father HTN (hypertension) Eczema Mother Asthma Other Mental health disorder Substance use disorder Social History (Updated 07/26/24 @ 10:02 by Chasity Wright Oskar) [facility] Alcohol intake: current Alcohol intake frequency: a few times a month Patient Tobacco Use Status: Former Tobacco user Tobacco use type: Cigarette Years Smoked: started age 15, 1PPD, quit 2015 e-Cigarette/Vaping Use: Former Use Second Hand Smoke Exposure: Yes service: No Current occupational status: employed Current occupation: [employer] Cognitive needs: No Hearing needs: No Vision needs: Yes (Glasses) Review of Systems Const Denies daytime sleepiness, Denies excessive sweating, Denies fatigue, Denies fever(s), Denies lethargy, Denies malaise, Denies night sweats, Denies snoring and Denies weight loss Eyes Denies blurry vision and Denies itchy eyes ENT Denies nasal congestion, Denies post nasal drip, Denies sinus pain, Denies sinus pressure and Denies other ( Thrush) Card Denies chest pain, Denies pedal edema, Denies dyspnea, Denies orthopnea and Denies paroxysmal nocturnal dyspnea Resp Denies cough, Denies hemoptysis, Denies excessive phlegm production, Denies dyspnea, Denies snoring and Denies wheezing GI Denies abdominal pain and Denies heartburn Musc Denies myalgias, Denies arthralgias and Denies joint swelling Skin/Breast Denies rash Neuro Denies memory loss and Denies seizure-like activity Psych Denies abnormal sleep pattern, Denies anxiety and Denies memory loss Endo Denies excessive sweating, Denies fatigue and Denies heat intolerance Ollie/Lymph Denies easy bruising Aller/Immun Denies itchy eyes, Denies seasonal rhinorrhea and Denies wheezing Physical Exam Vital Signs: Last Vital Signs Pulse 93 10/04/24 14:07 BP 124/64 10/04/24 14:07 Pulse Ox 98 10/04/24 14:07 Oxygen Delivery Method Room Air 10/04/24 14:07 BMI result Body Mass Index 28.2 Const General: no acute distress and alert Nutritional Appearance: not obese Orientation/consciousness: Other orientation findings ( oriented) HEENT Head: Yes atraumatic Eyes General: appearance normal, both eyes and all related structures Sclerae: sclerae normal EOM: EOMs intact bilaterally Neck Neck: Yes supple Lymphatic: no lymphadenopathy noted Resp Effort & Inspection: normal respiratory effort and no use of accessory muscles Auscultation: clear to auscultation bilaterally Cardio Rate: regular rate Rhythm: regular rhythm Heart sounds: no gallops, no murmurs and no rubs Skin General skin exam: other ( warm) Extrem General: No clubbing, No cyanosis and No edema Assessment & Plan Assessment & Plan (1) Reactive airway disease: Code(s): J45.909 - Unspecified asthma, uncomplicated Category: Medical Plan: Well controlled on current regimen of Spiriva and albuterol MDI. Continue current regimen. Coding Level of Care Code Est Pt Level 3 (73129) Diagnoses Reactive airway disease J45.909
[2024-10-04 14:07] VITALS: BP 124/64; PULSE 93; O2SAT 98; BMI 28.2
== END 2024-10-04 14:24 | disposition home or self-care (01) ==
PROVIDERS: Visit Provider Internal Medicine Pulmonary Disease
DX: J45.909 Unspecified asthma, uncomplicated (principal)
CPT/HCPCS: 99213

== ENCOUNTER 2024-12-20 08:50 | Outpatient (REF) | payer OTHER, SELFPAY ==
[2024-12-20 09:09] LABS: MANUAL DIFF FLAG NO
--- OUTSIDE RECORDS SUMMARY | 2024-12-20 09:10 | XMS_ITS | Patient Health Record ---
Author Organization [facility] Address [address] [place] [address] Care Team Providers Care Academic Affairs Assistant Name Role Phone Trey Shane MD Primary Care Provider Barbara Ramos Unavailable [phone] Allergies Allergen (clinical drug ingredient) Drug/Non Drug Allergy documented on EMR Reaction Allergy Type Onset Date Status Information temporarily unavailable egg Unknown Drug Allergy Active Information temporarily unavailable nickel Rash Drug Allergy Active Reason For Referral No Information Medications Medication SIG (Take, Route, Frequency, Duration) Notes Start Date End Date Status Ciclopirox Olamine 0.77 % 1 application to affected area Externally Twice a day; Duration: 30 days 05/28/2011 Active Refurbishment Custom Orthotics as directed 01/27/2015 Active Work Note-Appointment . . . [facility]; Duration: . 01/27/2015 Active ZyrTE Active Problems No Known Problems Plan Of Treatment Pending Test Test Name Order Date 00327-[id number] NAIL, 1-5 01/27/2015 Insurance Providers Payer Name Payer Address Payer Phone Subscriber Number Group Number Insured Name Patient Relationship to Insured Coverage Start Date Coverage End Date [facility] [address] [place] [address] [phone] [id number] Aguilar Beck i Self - patient is the insured Medical (General) History Medical History History ICD Code broken bones psoriasis/eczema chicken pox Surgical History Surgery Date(Month/Year) tonsillectomy 2006 wisdom teeth extraction
--- OUTSIDE RECORDS SUMMARY | 2024-12-20 09:10 | XMS_ITS | Clinical Summary ---
Author Organization [facility] Address [address] [place] [address] Phone Care Team Providers Care Industrial Commercial Groundskeeper Name Role Phone Physician, Pcp Unknown Primary Care Provider Kaylin vailable Allergies Active Allergy Reactions Criticality Noted Date Comments Nickel 05/18/2020 Other Reaction(s): Rash/Dermatitis silver Medications nicotine polacrilex (NICORETTE) [address] 1 each (2 mg total) into mouth between cheek and gum every 2 (two) hours if needed for smoking cessation for up to 4 days. 48 each Active Active Problems Problem Noted Date Diagnosed [...] understand. He is going to see a director medicaid and tells me that he has stopped vaping and smoking which I think is great and probably will help with his overall health. However at any follow-up is needed with me or any follow-up imaging is needed necessarily. Hyperlipidemia LDL goal <160 05/18/2024 Erectile dysfunction 09/24/2022 Herpes simplex type 1 infection 08/05/2018 Eczema 07/14/2018 History of drug abuse in rem ission ([facility] V24, [facility] V28) 07/14/2018 Overview (05/18/2024): Clean & sober since February 2016. 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 Testing was negative for underlying seizure disorder Tobacco use 08/05/2018 DX:Tobacco use Hyperlipidemia LDL goal <160 DX: Hyperlipidemia LDL goal <160 Abdominal pain DX:Abdominal dilia n Constipation DX:Constipation Straining with stools DX:Straini ng with stools GERD (gastroesophageal reflux disease) Seizures ([facility] V24, [facility] V28) 07/12/2024 Asbestos exposure 07/12/2024 Lung disease due to breathin g vapors or fumes ([facility] V24, [facility] V28) 07/12/2024 diesel fumes Family History Medical [...] Date Smoking Tobacco: Every Day Cigarettes 0.8 25.6 Started: 05/19/1999 Smokeless Tobacco: Never Alcohol Use [...] 77 07/12/2024 1:31 PM EST Temperature 36.7 C (98.1 F) 07/12/2024 1:31 PM EST Respiratory Rate 16 06/28/2024 6:07 PM EST [...] 5 Years) and At-Risk Patients (6 to 49 Years) (1 of 2 - PCV) 02/21/2004 Hepatitis B Vaccines (2 of 3 - 19+ 3-dose series) 11/07/2011 10/10/2011 Social Influencers of Health Screening 04/21/2022 COVID-19 Vaccine (1 - 2023-2 5 season) 2024 Depression Screening 05/19/2024 Influenza Vaccine (#1) 2025 DTaP,Tdap,and Td Vaccines (2 - Td [...] Health Maintenance Results * HIV Screening (09/20/2022) HIV Screening abstracted [facility] Provider MD HEALTH MAINTENANCE Final Result * Hepatitis C Screening (09/20/2022) Pathologist [facility] Hepatitis C Screening abstracted [facility] Provider HEALTH MAINTENANCE Final Result * (ABNORMAL) Lipid panel (09/20/2022) LDL/HDL Ratio 4 0 - 4 Triglycerides 95 0 - 150 mg/dL Cholesterol 248(A) 0 - 200 mg/dL HDL 57 >=40 mg/dL LDL Cholesterol 172(A) 0 - 100 mg/dL Blood Venous blood specimen / Unknown [facility] Provider LAB BLOOD ORDERABLES Chiquita l Result from Last 3 Months or Most Recently Relevant to Health Maintenance Insurance [facility]) Care Teams Industrial Commercial Groundskeeper Relationship Specialty Start Date End Date Physician, Pcp Unknown PCP - General 06/28/24
[2024-12-20 10:13] LABS: Hematocrit 41.9 % (42.0-52.0); Hemoglobin 14.2 g/dl (14.0-18.0); Imm Gran Abs Auto 0.02 X10*3/uL (0.00-0.03); Imm Gran Pct Auto 0.3 % (0.0-0.4); Lymphocytes Absolute Auto 1.8 X10*3/uL (1.2-4.9); Mean Corpuscular HGB Conc 33.9 g/dl (31.0-36.0); Mean Corpuscular Hemoglobin 30.7 pg (27.0-33.0); Mean Corpuscular Volume 90.5 fL (80.0-98.0); NRBC Abs Auto 0.000 X10*3/uL (0.0-0.012); NRBC Pct Auto 0.0 /100WBC (0.0-0.2); Platelet Count 258 X10*3/uL (160-400); Red Blood Count 4.63 X10*6/uL (4.60-5.80); White Blood Count 7.3 X10*3/uL (4.8-10.8)
[2024-12-20 10:21] LABS: Appearance Urine Clear; Glucose Urine UA Negative (Negative); PH 6.5 (5.0-9.0); Specific Gravity - Urine 1.020 (1.005-1.025)
[2024-12-20 10:51] LABS: Alanine Aminotransferase 61 U/L (0-40); Albumin Level 4.7 g/dL (3.5-5.0); Alkaline Phosphatase 101 U/L (39-117); Anion Gap 14 (12-20); Blood Urea Nitrogen 14 mg/dL (9-16); Calcium 9.2 mg/dL (8.4-10.2); Carbon Dioxide 25 mmol/L (22-29); Chloride 107 mmol/L (96-108); Cholesterol 178 mg/dL (<200); Estimated Glomerular Filt Rate > 60; HDL Cholesterol 47 mg/dL (>40); Potassium 4.1 mmol/L (3.3-5.1); Sodium 142 mmol/L (135-145); Total Protein 7.7 g/dL (6.5-8.0); Triglycerides 78 mg/dL (<150)
[2024-12-20 12:36] LABS: Aspartate Amino Transferase 46 U/L (5-37)
== END 2024-12-20 08:51 | disposition home or self-care (01) ==
LOC: HO.LAB 08:50
DX: E55.9 Vitamin D deficiency, unspecified (principal); E78.5 Hyperlipidemia, unspecified; R12 Heartburn
CPT/HCPCS: 36415; 80053; 80061; 81003; 82306; 85025

== ENCOUNTER 2025-01-10 11:05 | Outpatient (AMB) | payer OTHER, SELFPAY ==
[2025-01-10 11:13] VITALS: BP 138/76; PULSE 90; RESP 18; TEMP 36.3; O2SAT 96; BMI 30.4
--- NOTE | 2025-01-10 11:13 | A.OFFPC_ITS ---
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 Accompanied by: Self / Same As Patient Allergies No Known Allergies Allergy (Verified 01/10/25 11:25) Medication List - Last Reconciled 01/10/25 by JONATHAN Ramos albuterol sulfate 90 mcg/actuation 2 puffs inhalation Q4-6H PRN atorvastatin 10 mg PO BEDTIME cholecalciferol (vitamin D3) (Vitamin D3) 25 mcg PO DAILY hydroxyzine pamoate 25 mg PO BID PRN mupirocin 2% 1 appl topical BID nicotine (polacrilex) 4 mg buccal Q2H omeprazole 20 mg PO DAILY tiotropium bromide 2.5 mcg/actuation (Spiriva Respimat) 2 puffs inhalation QAM Tobacco use date assessed: 01/10/25 Dental Screening Dental Screen Date: 01/10/25 Did you have a dental visit in the last 12 months?: Yes Did you have a dental problem in the last 6 months where you did not have access to dental care?: No Was dental information given to patient?: Patient has dentist HPI Reschedule hld/vit d deficiency HPI Details The patient is a 39-year-old male presenting for a follow-up visit on chronic conditions. Recent labs-here to discuss recent lab results and ongoing health concerns. The patient reports significant weight gain since quitting smoking, attributing it to increased appetite and larger meal portions. He has gained approximately 40 pounds since his initial visit, now weighing almost 220 pounds. The patient has a history of hyperlipidemia, with recent lab results showing a decrease in cholesterol levels due to medication. However, there is a slight increase in liver enzymes, which may be attributed to the cholesterol medication or weight gain. The patient has a history of nicotine dependence, having quit smoking and now using nicotine gum. He reports occasional dyspnea, particularly in hot weather, and uses Spiriva daily. The patient experiences anxiety, particularly when using his emergency inhaler, which he finds causes increased heart rate and discomfort. He has not needed to use the inhaler frequently. The patient has been diagnosed with gastroesophageal reflux disease (GERD), experiencing chest pain and acid reflux symptoms, particularly at night. He finds relief with omeprazole and lifestyle modifications, such as adjusting his sleeping position. The patient has been informed of early-stage Chronic Obstructive Pulmonary Disease (COPD) but notes difficulty in obtaining complete diagnostic results, including a missing CAT scan. 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 CT of chest at [facility], he is having difficulty obtaining the result (pulmonology) [facility] Medical History Eczema Asthma Seizure Herpes simplex type 1 infection Nicotine dependence HLD (hyperlipidemia) Surgical History History of wisdom tooth extraction History of tonsillectomy History of foot surgery Family History Father HTN (hypertension) Eczema Mother Asthma Other Mental health disorder Substance use disorder Social History Housing: Condominium Alcohol intake: current Alcohol intake frequency: a few times a month Patient Tobacco Use Status: Former Tobacco user Tobacco use type: Cigarette Years Smoked: started age 15, 1PPD, quit 2015 e-Cigarette/Vaping Use: Former Use Second Hand Smoke Exposure: Yes service: No Current occupational status: employed Current occupation: [employer] Cognitive needs: No Hearing needs: No Vision needs: Yes (Glasses) Questionnaire PHQ-9 Over the last 2 weeks, how often have you been bothered by any of the following problems? 1. Little interest or pleasure in doing things: not at all 2. Feeling down, depressed, or hopeless: several days 3. Trouble falling or staying asleep, or sleeping too much: several days 4. Feeling tired or having little energy: several days 5. Poor appetite or overeating: not at all 6. Feeling bad about yourself - or that you are a failure or have let yourself or your family down: several days 7. Trouble concentrating on things, such as reading the newspaper or watching television: not at all 8. Moving or speaking so slowly that other people could have noticed. Or the opposite - being so fidgety or restless that you have been moving around a lot more than usual: not at all 9. Thoughts that you would be better off or of hurting yourself in some way: not at all Total score: 4 Depression Screening Interpretation: Positive Depression Screening Follow-up: Existing condition and Follow-up Visit Requested Depression Screening Done: Yes Source: Developed by Drs. Yanick Gudino, Tiff Allen, Toño Bobby and colleagues, with an educational kimmie from [employer]. Thrive Questionnaire Date Thrive assessed: 01/10/25 I am a: Patient What is your living situation today?: I have a steady place to live Within the past 12 months, did the food you bought not last and you didn't have the money to get more?: Never true Within the past 12 months, did you worry whether your food would run out before you got money to buy more?: Never true Do you have trouble paying for medicines?: No Do you have trouble getting transportation to medical appointments?: No Do you have trouble paying your heating and electricity bill?: No Do you have trouble taking care of your child, family member or friend?: No Do you have trouble with day-to-day activities such as bathing, preparing meals, shopping, managing finances, etc.?: No Are you currently unemployed and looking for a job?: No Are you interested in more education?: No Please select the resources that you would like help with: None Currently or been in a relationship where the following occur: No concerns reported THRIVE Score: 0 AUDIT C Alcohol Use Questionnaire (AUDIT-C) 1. How often do you have a drink containing alcohol?: Monthly or less 2. How many drinks containing alcohol do you have on a typical day when you are drinking?: 1 or 2 3. How often do you have six or more drinks on one occasion?: Less than monthly Total Score: 2 Score Reviewed/Action Taken: Yes NATALIA-7 AMB Questionnaire NATALIA-7 Date NATALIA - 7 assessed: 01/10/25 Feeling nervous, anxious, or on edge: 2 = More than half the days Not being able to stop or control worryin = Several days Worrying too much about different things: 1 = Several days Trouble relaxin = Several days Being so restless that it is hard to sit still: 1 = Several days Becoming easily annoyed or irritable: 1 = Several days Feeling afraid as if something awful might happen: 1 = Several days Total NATALIA-7 score (0-4 normal; 5-9 mild; 10-14 moderate; 15-21 severe): 8 Source: Developed by Drs. Yanick Gudino, Tiff Allen, Toño Bobby and colleagues, with an educational kimmie from [employer]. Review of Systems Const Denies headache(s) Eyes Denies loss of vision ENT Denies vertigo, Denies dizziness, Denies headache(s) and Denies sore throat Card Denies chest pain, Denies leg edema, Denies lightheadedness and Reports dyspnea (infrequently when the weather is cold) Resp Denies cough, Denies hemoptysis, Reports dyspnea (infrequently when the weather is cold) and Denies wheezing GI Denies abdominal pain, Denies melena, Denies constipation, Reports heartburn (if forgets to take medication), Denies diarrhea and Denies vomiting Denies dysuria, Denies urinary frequency and Denies urinary urgency Musc Denies arthralgias, Denies joint swelling, Denies numbness and Denies tingling Neuro Denies Abnormal speech present, Denies behavioral changes, Denies vertigo, Denies dizziness, Denies headache(s), Denies loss of vision, Denies memory loss, Denies numbness and Denies tingling Psych Reports anxiety (manageable at this time), Denies behavioral changes, Denies depression, Denies memory loss and Denies panic attacks Ollie/Lymph Denies easy bleeding and Denies easy bruising Aller/Immun Denies wheezing Physical exam (Primary Care) Vital Signs: Last Vital Signs Temp 97.3 F 01/10/25 11:13 Resp 18 01/10/25 11:13 Oxygen Delivery Method Room Air 01/10/25 11:13 BMI result Body Mass Index 30.4 Tobacco/Smoking Status: Tobacco use Status Tobacco use date assessed 01/10/25 01/10/25 11:15 Patient Tobacco Use Status Former Tobacco user 01/10/25 11:15 Tobacco use type Cigarette 01/10/25 11:15 e-Cigarette/Vaping Use Former Use 01/10/25 11:15 PHQ-9: PHQ-9 Score PHQ-9: Total score 4 01/10/25 11:15 Depression Screening Interpretation: Positive Depression Screening Follow-up: Existing condition and Follow-up Visit Requested Thrive Assessment: Date of Thrive Assessment Date Thrive assessed 01/10/25 01/10/25 11:15 Currently or been in a relationship where the following occur: No concerns reported Const General: healthy appearing, no acute distress, alert and awake Nutritional Appearance: well nourished Orientation/consciousness: oriented to person, oriented to place and oriented to time HENMT Ears: TM's normal bilaterally General nose exam: Normal nasal mucous membranes and turbinates present Eyes Conjunctivae: conjunctivae normal Sclerae: sclerae normal Pupils: Equal, round and reactive pupils present Neck Neck: Yes no lymphadenopathy and Yes no JVD Thyroid: Thyroid normal Carotids: no bruits Resp Effort & Inspection: normal respiratory effort and not tachypneic Auscultation: no crackles, no rales, no rhonchi and no wheezes Cardio Rate: regular rate Rhythm: regular rhythm Heart sounds: no murmurs and normal S1 and S2 GI Palpation (GI): Soft to palpation, nontender, no hepatomegaly and no splenomegaly Auscultation: normal bowel sounds Skin General skin exam: no rashes or lesions noted and dry skin Neuro General: oriented to person, oriented to place and oriented to time Cranial nerves: Yes Equal, round and reactive pupils present Speech: No Abnormal speech present Gait exam (Neuro): Normal gait present Motor exam (neuro): no tremor noted Extrem Right upper extremity: full ROM Left upper extremity: full ROM Right lower extremity: full ROM; no edema Left lower extremity: full ROM; no edema Psych Mental Status: mental status grossly normal Speech and movement: Normal speech and movement present Affect: normal affect Attitude: cooperative Thought process: Normal thought process present Results Reviewed Results Reviewed: Laboratory Tests 12/20/24 12/20/24 09:00 09:09 WBC 7.3 RBC 4.63 Hgb 14.2 Hct 41.9 L MCV 90.5 MCH 30.7 MCHC 33.9 RDW 12.7 Plt Count 258 MPV 11.0 Immature Gran % (Auto) 0.3 Neut % (Auto) 67.5 Lymph % (Auto) 24.1 Sodium 142 Potassium 4.1 Chloride 107 Carbon Dioxide 25 Anion Gap 14 BUN 14 Creatinine 0.90 Estimated GFR > 60 Fasting Glucose 94 Calcium 9.2 Total Bilirubin 0.6 AST 46 H ALT 61 H Alkaline Phosphatase 101 Total Protein 7.7 Albumin 4.7 Triglycerides 78 Cholesterol 178 LDL Cholesterol, Calc 116 H HDL Cholesterol 47 25-OH Vitamin D Total 38.5 Urine Color Yellow Urine Appearance Clear Urine pH 6.5 Ur Specific Rosine 1.020 Urine Protein Negative Urine Glucose (UA) Negative Urine Ketones Negative Urine Blood Negative Urine Nitrite Negative Ur Leukocyte Esterase Negative Coding Level of Care Code Est Pt Level 4 (81959) Diagnoses Chest pain, unspecified type R07.9 Chest pain type: unspecified Pulmonary emphysema, unspecified emphysema type J43.9 Emphysema type: unspecified Lung cyst J98.4 Anxiety F41.9 Cigarette nicotine dependence with nicotine-induced disorder F17.219 Nicotine product type: cigarettes Substance use status: unspecified nicotine-induced disorder Heart burn R12 Vitamin D deficiency E55.9 Pure hypercholesterolemia E78.00 Hyperlipidemia type: pure hypercholesterolemia Reactive airway disease without complication, unspecified asthma severity, unspecified whether persistent J45.909 Asthma severity: unspecified severity Asthma persistence: unspecified Asthma complication type: uncomplicated Time Spent (min) 36 Assessment & Plan Assessment & Plan (1) Chest pain: Code(s): R07.9 - Chest pain, unspecified Category: Medical Qualifiers: Chest pain type: unspecified Qualified Code(s): R07.9 - Chest pain, un specified Plan: The patient reports that he has been having chest pains on and off Reports that on Friday and on Friday he went to [facility] for chest pain Reports that he was diaphoretic in his chest pain was going on for about 10 minutes Reports that his troponin, EKG and all other tests negative for cardiac-related issues Cardiology referral was placed The patient is reporting today so ever since he started treating his heartburn his chest pain went away (2) Emphysema lung: Code(s): J43.9 - Emphysema, unspecified Category: Medical Qualifiers: Emphysema type: unspecified Qualified Code(s): J43.9 - Emphysema, unspecified Plan: CT of the chest was done and noticed a cyst outside of the right mid-lung and sign of emphysema Reports that he was referred to a thoracic for to assess but he will still need a pulmonology referral to evaluate the potential emphysema. The patient was seen by pulmonology. He had a normal pulmonary function tests and a normal immunology testing Patient was diagnosed with reactive lung disease and was started on Spiriva. Reports that he has been doing much better, and only has some shortness of breath and extreme cold weather (3) Lung cyst: Code(s): J98.4 - Other disorders of lung Category: Medical Plan: Patient was evaluated by thoracic. Patient reports that he was told that he has cysts in both lungs but during that concerning and does not need to be biopsied (4) Anxiety: Code(s): F41.9 - Anxiety disorder, unspecified Category: Medical Plan: Continue hydroxyzine 25 mg b.i.d. p.r.n. Denies HI/SI Patient reports that he was called by a therapist but was unable to make an appointment Reports that a therapist asked him for a credit card over the phone and he did not feel comfortable Patient reports that the therapist wanted to do telehealth and he would rather see someone in person The patient reports that this time he has had a bit of placed. 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 So, he would rather hold off for now with any new referrals. (5) Nicotine dependence: Code(s): F17.200 - Nicotine dependence, unspecified, uncomplicated Category: Medical Qualifiers: Nicotine product type: cigarettes Substance use status: unspecified nicotine-induced disorder Qualified Code(s): F17.219 - Nicotine dependence, cigarettes, with unspecified nicotine-induced disorders Plan: Reports that he was given nicotine gum and this has been helping him. He does not want to started smoking again due to the issues with his lungs. Reports that the nicotine gum is only 2 mg, he was wondering if he will get the 4 mg because he used to smoke a lot of cigarettes, along with vaping and smoking marijuana. Nicotine gum 4 mg was ordered and the patient reports positive effects (6) Heart burn: Code(s): R12 - Heartburn Category: Medical Plan: Reports heartburn with certain foods and also if he lies down too soon after eating. He also noticed that this has been the cause of his chest pains. He was started on omeprazole 20 mg daily. The patient reports that he could tell the difference when he forgets to take the medication. Reinforced dietary restrictions. (7) Vitamin D deficiency: Code(s): E55.9 - Vitamin D deficiency, unspecified Category: Medical Plan: Cholecalciferol 25 mcg daily (8) HLD (hyperlipidemia): Code(s): E78.5 - Hyperlipidemia, unspecified Category: Medical Qualifiers: Hyperlipidemia type: pure hypercholesterolemia Qualified Code(s): E78.00 - Pure hypercholesterolemia, unspecified Plan: LDL decreased from 178 to116 Reinforced a diet low in cholesterol Continues Atorvastatin 10 mg p.o. at bedtime recheck in 3 months (9) Reactive airway disease: Code(s): J45.909 - Unspecified asthma, uncomplicated Category: Medical Qualifiers: Asthma severity: unspecified severity Asthma persistence: unspecified Asthma complication type: uncomplicated Qualified Code(s): J45.909 - Unspecified asthma, uncomplicated Plan: Patient had his pulmonary function test that was essentially normal. His immunologic workup also has been essentially unrevealing. It was started on Spiriva 2 puffs daily with positive effects. Reports that he has not had to use his rescue inhaler in a long time Follow up with pulmonology as scheduled Plan Patient to return in 3 months Orders: Orders Complete Blood Count Auto Diff 3 Months E55.9 - Vitamin D deficiency, unspecified, E78.00 - Pure hypercholesterolemia, unspecified, F41.9 - Anxiety disorder, unspecified, J45.909 - Unspecified asthma, uncomplicated, Z91.09 - Other allergy status, other than to drugs and biological substances UA CC w/rflx Micro + Cult 3 Months E55.9 - Vitamin D deficiency, unspecified, E78.00 - Pure hypercholesterolemia, unspecified, F41.9 - Anxiety disorder, unspecified, J45.909 - Unspecified asthma, uncomplicated, Z91.09 - Other allergy status, other than to drugs and biological substances Comprehensive Earth. Panel Fast 3 Months E55.9 - Vitamin D deficiency, unspecified, E78.00 - Pure hypercholesterolemia, unspecified, F41.9 - Anxiety disorder, unspecified, J45.909 - Unspecified asthma, uncomplicated, Z91.09 - Other allergy status, other than to drugs and biological substances Lipid Panel 3 Months E55.9 - Vitamin D deficiency, unspecified, E78.00 - Pure hypercholesterolemia, unspecified, F41.9 - Anxiety disorder, unspecified, J45.909 - Unspecified asthma, uncomplicated, Z91.09 - Other allergy status, other than to drugs and biological substances TSH reflex Free T4 3 Months E55.9 - Vitamin D deficiency, unspecified, E78.00 - Pure hypercholesterolemia, unspecified, F41.9 - Anxiety disorder, unspecified, J45.909 - Unspecified asthma, uncomplicated, Z91.09 - Other allergy status, other than to drugs and biological substances
--- OUTSIDE RECORDS SUMMARY | 2025-01-10 12:28 | XMS_ITS | Clinical Summary ---
Author Organization [facility] Address [address] [place] [address] Phone Care Team Providers Care Control Operator Flow Coat Name Role Phone Physician, Pcp Unknown Primary [...] understand. He is going to see a [employer] architect and tells me that he has stopped vaping and smoking which I think is great and probably will help with his overall health. However at any follow-up is needed with me or any follow-up imaging is needed necessarily. Hyperlipidemia LDL goal <160 05/18/2024 Erectile dysfunction 09/24/2022 Herpes simplex type 1 infection 08/05/2018 Eczema 07/14/2018 History of drug abuse in rem ission ([facility] V24, [facility]) 07/14/2018 Overview (05/18/2024): Clean & sober since February 2016. 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 Testing was negative for underlying seizure disorder Tobacco use 08/05/2018 DX:Tobacco use Hyperlipidemia LDL goal <160 DX: Hyperlipidemia LDL goal <160 Abdominal pain DX:Abdominal dilia n Constipation DX:Constipation Straining with stools DX:Straini ng with stools GERD (gastroesophageal reflux disease) Seizures ([facility], [facility]) 07/12/2024 Asbestos exposure 07/12/2024 Lung disease due to breathin g vapors or fumes ([facility], [facility] V[facility]) 07/12/2024 diesel fumes Family History Medical [...] * HIV Screening (09/20/2022) HIV Screening abstracted [facility] Provider MD HEALTH MAINTENANCE Final Result * Hepatitis C Screening (09/20/2022) Pathologist [facility] Hepatitis C Screening abstracted [facility] Provider HEALTH MAINTENANCE Final Result * (ABNORMAL) Lipid panel (09/20/2022) LDL/HDL Ratio 4 0 - 4 Triglycerides 95 0 - 150 mg/dL Cholesterol 248(A) 0 - 200 mg/dL HDL 57 >=40 mg/dL LDL Cholesterol 172(A) 0 - 100 mg/dL Blood Venous blood specimen / Unknown [facility] Provider LAB BLOOD ORDERABLES Chiquita l Result from Last 3 Months or Most Recently Relevant to Health Maintenance Insurance [facility]) Care Teams Control Operator Flow Coat Relationship Specialty Start Date End Date Physician, Pcp Unknown PCP - General 06/28/24
--- OUTSIDE RECORDS SUMMARY | 2025-01-10 12:28 | XMS_ITS | Patient Health Record ---
[facility] Address [address] [place] [address] Care Team Providers Care Fixing Machine Operator Name Role Phone Trey Shane MD Primary Care Provider Barbara Ramos Unavailable [phone] Allergies Allergen (clinical drug ingredient) Drug/Non Drug [...] Note-Appointment . . . [facility]; Duration: . 01/27/2015 Active ZyrTE Active Problems No Known Problems Plan Of Treatment Pending Test Test Name Order Date [id number] NAIL, 1-5 01/27/2015 Insurance Providers Payer Name Payer Address Payer Phone Subscriber Number Group Number Insured Name Patient Relationship to Insured Coverage Start Date Coverage End Date [facility] [address] [place] [address] [phone] [id number] Aguilar Beck i Self - patient is the insured Medical (General) History Medical History History ICD Code broken bones psoriasis/eczema chicken pox Surgical History Surgery Date(Month/Year) tonsillectomy 2006 wisdom teeth extraction
== END 2025-01-10 11:53 | disposition home or self-care (01) ==
LOC: HO.HMCH 11:06
DX: R07.9 Chest pain, unspecified (principal); J43.9 Emphysema, unspecified; J98.4 Other disorders of lung; F41.9 Anxiety disorder, unspecified; F17.219 Nicotine dependence, cigarettes, with unspecified nicotine-induced disorders; R12 Heartburn; E55.9 Vitamin D deficiency, unspecified; E78.00 Pure hypercholesterolemia, unspecified; J45.909 Unspecified asthma, uncomplicated

== ENCOUNTER → 2025-01-10 11:05 | Outpatient (BNVA) | payer OTHER, SELFPAY | DX: R12 Heartburn (principal); F41.9 Anxiety disorder, unspecified; K21.9 Gastro-esophageal reflux disease without esophagitis; R07.9 Chest pain, unspecified; J43.9 Emphysema, unspecified; J98.4 Other disorders of lung; E55.9 Vitamin D deficiency, unspecified; E78.00 Pure hypercholesterolemia, unspecified; Z87.891 Personal history of nicotine dependence | CPT/HCPCS: 99212 ==

== ENCOUNTER 2025-04-25 11:49 | Outpatient (REF) | payer OTHER, SELFPAY ==
[2025-04-25 12:06] LABS: MANUAL DIFF FLAG NO
[2025-04-25 12:19] LABS: Hematocrit 42.5 % (42.0-52.0); Hemoglobin 14.4 g/dl (14.0-18.0); Imm Gran Abs Auto 0.03 X10*3/uL (0.00-0.03); Imm Gran Pct Auto 0.5 % (0.0-0.4); Lymphocytes Absolute Auto 1.7 X10*3/uL (1.2-4.9); Mean Corpuscular HGB Conc 33.9 g/dl (31.0-36.0); Mean Corpuscular Hemoglobin 30.5 pg (27.0-33.0); Mean Corpuscular Volume 90.0 fL (80.0-98.0); NRBC Abs Auto 0.000 X10*3/uL (0.0-0.012); NRBC Pct Auto 0.0 /100WBC (0.0-0.2); Platelet Count 230 X10*3/uL (160-400); Red Blood Count 4.72 X10*6/uL (4.60-5.80); White Blood Count 6.0 X10*3/uL (4.8-10.8)
[2025-04-25 12:33] LABS: Appearance Urine Clear; Glucose Urine UA Negative (Negative); PH 6.0 (5.0-9.0); Specific Gravity - Urine 1.020 (1.005-1.025)
[2025-04-25 13:30] LABS: Alanine Aminotransferase 76 U/L (0-40); Albumin Level 4.7 g/dL (3.5-5.0); Alkaline Phosphatase 101 U/L (39-117); Anion Gap 11 (12-20); Aspartate Amino Transferase 49 U/L (5-37); Blood Urea Nitrogen 16 mg/dL (9-16); Calcium 9.4 mg/dL (8.4-10.2); Carbon Dioxide 26 mmol/L (22-29); Chloride 107 mmol/L (96-108); Cholesterol 188 mg/dL (<200); Estimated Glomerular Filt Rate > 60; HDL Cholesterol 44 mg/dL (>40); Potassium 4.1 mmol/L (3.3-5.1); Sodium 140 mmol/L (135-145); Total Protein 7.3 g/dL (6.5-8.0); Triglycerides 123 mg/dL (<150)
== END 2025-04-25 11:50 | disposition home or self-care (01) ==
LOC: HO.LAB 11:49
DX: J45.909 Unspecified asthma, uncomplicated (principal); E78.00 Pure hypercholesterolemia, unspecified; E55.9 Vitamin D deficiency, unspecified; F41.9 Anxiety disorder, unspecified; Z91.09 Other allergy status, other than to drugs and biological substances
CPT/HCPCS: 36415; 80053; 80061; 81003; 84443; 85025

== ENCOUNTER 2025-04-28 09:58 | Outpatient (AMB) | payer OTHER, SELFPAY ==
--- NOTE | 2025-04-28 10:09 | A.OFFPC_ITS ---
Vital Signs 04/28/25 10:10 Height 5 ft 11 in Weight 235 lb BMI 32.8 BP 130/86 Blood Pressure Location Rt brachial Position Sitting Pulse 79 Pulse Source Pulse Oximeter Pulse Oximetry (%) 97 Oxygen Delivery Method Room Air Intake Visit Reasons: hld/reactive lung disease/elevated liver enzymes Commercial Coordinator Required: No Accompanied by: Self / Same As Patient Allergies No Known Allergies Allergy (Verified 04/28/25 10:29) Medication List - Last Reconciled 04/28/25 by JONATHAN Ramos albuterol sulfate 90 mcg/actuation 2 puffs inhalation Q4-6H PRN atorvastatin 10 mg PO BEDTIME cholecalciferol (vitamin D3) (Vitamin D3) 25 mcg PO DAILY hydroxyzine pamoate 25 mg PO BID PRN mupirocin 2% 1 appl topical BID nicotine (polacrilex) 4 mg buccal Q2H omeprazole 20 mg PO DAILY tiotropium bromide 2.5 mcg/actuation (Spiriva Respimat) 2 puffs inhalation QAM Tobacco use date assessed: 04/28/25 Dental Screening Dental Screen Date: 04/28/25 Did you have a dental visit in the last 12 months?: Yes Did you have a dental problem in the last 6 months where you did not have access to dental care?: No Was dental information given to patient?: Patient has dentist HPI HPI Comments History of Present Illness Details The patient is a 40-year-old male presenting for a follow-up visit for chronic conditions and to review recent lab work. He reports recent weight gain. Regarding his medical history, the patient has hypercholesterolemia and is prescribed atorvastatin, which he takes at night. He also takes vitamin D supplements but admits to not taking them regularly, sometimes forgetting. His cholesterol level was previously as high as 178 mg/dL and was brought down to 116 mg/dL, but his recent lab work shows it has started to creep back up. His liver enzymes were normal before starting atorvastatin but are now mildly elevated. The patient reports a decrease in his libido, which he questions if it's related to his weight gain. His recent lab work shows his vitamin D level is normal. Regarding his activity level, he reports being physically active at work, involving a lot of lifting. Outside of work, he has weightlifting equipment at home but does not have a treadmill and is not currently exercising. He is more active in the summer with activities like skateboarding and golfing, but less so in the winter. Health Maintenance - Weight management: The patient is 5'11 and was advised that an ideal weight would be around 195 to 200 pounds. - It was discussed that weight gain can decrease testosterone levels and affect sex drive. - Diet: The patient was counseled to be mindful of his diet, particularly regarding foods high in cholesterol such as fried foods, red meats, pork, egg yolks, shellfish, and dairy products to help lower his cholesterol levels. - Exercise: The patient was encouraged t o exercise to help with weight loss and improve his sex drive. - Options discussed included walking his dog, starting slowly with walking or jogging, joining a gym, and snowshoeing. - Lab monitoring: A follow-up lab test, including a hepatitis panel, is planned in three months to monitor cholesterol and liver enzymes. Social History - Employment: The patient recently rece[place] a promotion at work. - Exercise: The patient gets a lot of ph ysical activity at work from lifting but does not have a formal exercise routine outside of work. - He has weightlifting equipment at home and a dog he could walk for cardio. - He is more active in the summer with s kateboarding and golfing, but his activity decreases in the winter. - Nutrition: The patient's diet is noted to be a factor in his weight gain and rising cholesterol. - He acknowledges periods of eating well followed by periods of eating 'junk' like pizza and wings, especially when he does not feel like cooking. Results - Labs - CBC: Normal. - Cholesterol: Slightly elevated. - Liver Enzymes: Mildly elevated, but st able. - Vitamin D: Normal. [facility] Medical History Eczema Asthma Seizure Herpes simplex type 1 infection Nicotine dependence HLD (hyperlipidemia) Surgical History History of wisdom tooth extraction History of tonsillectomy History of foot surgery Family History Father HTN (hypertension) Eczema Mother Asthma Other Mental health disorder Substance use disorder Social History (Reviewed 04/28/25 @ 10:11 by JOVANY Day Housing: Condominium Alcohol intake: current Alcohol intake frequency: a few times a month Patient Tobacco Use Status: Former Tobacco user Tobacco use type: Cigarette Years Smoked: started age 15, 1PPD, quit 2016 e-Cigarette/Vaping Use: Former Use Second Hand Smoke Exposure: Yes service: No Current occupational status: employed Current occupation: [employer] Cognitive needs: No Hearing needs: No Vision needs: Yes (Glasses) Questionnaire PHQ-9 Over the last 2 weeks, how often have you been bothered by any of the following problems? 1. Little interest or pleasure in doing things: not at all 2. Feeling down, depressed, or hopeless: several days 3. Trouble falling or staying asleep, or sleeping too much: several days 4. Feeling tired or having little energy: several days 5. Poor appetite or overeating: not at all 6. Feeling bad about yourself - or that you are a failure or have let yourself or your family down: several days 7. Trouble concentrating on things, such as reading the newspaper or watching television: not at all 8. Moving or speaking so slowly that other people could have noticed. Or the op posite - being so fidgety or restless that you have been moving around a lot more than usual: not at all 9. Thoughts that you would be better off or of hurting yourself in some way: not at all Total score: 4 Depression Screening Interpretation: Positive Depression Screening Follow-up: Existing condition and Follow-up Visit Requested Depression Screening Done: Yes Source: Developed by Drs. Yanick Gudino, Tiff Allen, Toño Bobby and colleagues, with an educational kimmie from [employer]. Thrive Questionnaire Date Thrive assessed: 04/28/25 I am a: Patient What is your living situation today?: I have a steady place to live Within the past 12 months, did the food you bought not last and you didn't have the money to get more?: Never true Within the past 12 months, did you worry whether your food would run out before you got money to buy more?: Never true Do you have trouble paying for medicines?: No Do you have trouble getting transportation to medical appointments?: No Do you have trouble paying your heating and electricity bill?: No Do you have trouble taking care of your child, family member or friend?: No Do you have trouble with day-to-day activities such as bathing, preparing meals, shopping, managing finances, etc.?: No Are you currently unemployed and looking for a job?: No Are you interested in more education?: No Please select the resources that you would like help with: None Currently or been in a relationship where the following occur: No concerns reported THRIVE Score: 0 AUDIT C Alcohol Use Questionnaire (AUDIT-C) 1. How often do you have a drink containing alcohol?: Monthly or less 2. How many drinks containing alcohol do you have on a typical day when you are drinking?: 1 or 2 3. How often do you have six or more drinks on one occasion?: Less than monthly Total Score: 2 Score Reviewed/Action Taken: Yes NATALIA-7 AMB Questionnaire NATALIA-7 Date NATALIA - 7 assessed: 04/28/25 Feeling nervous, anxious, or on edge: 2 = More than half the days Not being able to stop or control worryin = Several days Worrying too much about different things: 1 = Several days Trouble relaxin = Several days Being so restless that it is hard to sit still: 1 = Several days Becoming easily annoyed or irritable: 1 = Several days Feeling afraid as if something awful might happen: 1 = Several days Total NATALIA-7 score (0-4 normal; 5-9 mild; 10-14 moderate; 15-21 severe): 8 Source: Developed by Drs. Yanick Gudino, Tiff Allen, Toño Bobby and colleagues, with an educational kimmie from [employer]. Review of Systems Narrative Review of Systems - Constitutional: Reports weight gain. - Genitourinary: Reports decreased libido. Const Denies headache(s) and Reports weight gain Eyes Denies loss of vision ENT Denies vertigo, Denies dizziness, Denies headache(s) and Denies sore throat Card Denies chest pain, Denies leg edema, Denies lightheadedness and Reports dyspnea (infrequently when the weather is cold) Resp Denies cough, Denies hemoptysis, Reports dyspnea (infrequently when the weather is cold) and Denies wheezing GI Denies abdominal pain, Denies melena, Denies constipation, Reports heartburn (if forgets to take medication), Denies diarrhea and Denies vomiting Reports change in libido Musc Denies arthralgias, Denies joint swelling, Denies numbness and Denies tingling Neuro Denies Abnormal speech present, Denies behavioral changes, Denies vertigo, Denies dizziness, Denies headache(s), Denies loss of vision, Denies memory loss, Denies numbness and Denies tingling Psych Denies behavioral changes, Reports change in libido and Denies memory loss Endo Reports change in libido Ollie/Lymph Denies easy bleeding and Denies easy bruising Aller/Immun Denies wheezing Physical exam (Primary Care) Vital Signs: Last Vital Signs Pulse 79 04/28/25 10:10 BP 130/86 04/28/25 10:10 Pulse Ox 97 04/28/25 10:10 Oxygen Delivery Method Room Air 04/28/25 10:10 BMI result Body Mass Index 32.8 Tobacco/Smoking Status: Tobacco use Status Tobacco use date assessed 04/28/25 04/28/25 10:16 Patient Tobacco Use Status Former Tobacco user 04/28/25 10:16 Tobacco use type Cigarette 04/28/25 10:16 e-Cigarette/Vaping Use Former Use 04/28/25 10:16 PHQ-9: PHQ-9 Score PHQ-9: Total score 4 04/28/25 10:16 Depression Screening Interpretation: Positive Depression Screening Follow-up: Existing condition and Follow-up Visit Requested Thrive Assessment: Date of Thrive Assessment Date Thrive assessed 04/28/25 04/28/25 10:16 Currently or been in a relationship where the following occur: No concerns repor nicky Narrative Physical Exam - Respiratory: Lungs are clear to auscultation. Const General: healthy appearing, no acute distress, alert and awake Nutritional Appearance: well nourished Orientation/consciousness: oriented to person, oriented to place and oriented to time HENMT Ears: TM's normal bilaterally General nose exam: Normal nasal mucous membranes and turbinates present Eyes Conjunctivae: conjunctivae normal Sclerae: sclerae normal Pupils: Equal, round and reactive pupils present Neck Neck: Yes no lymphadenopathy and Yes no JVD Thyroid: Thyroid normal Carotids: no bruits Resp Effort & Inspection: normal respiratory effort and not tachypneic Auscultation: no crackles, no rales, no rhonchi and no wheezes Cardio Rate: regular rate Rhythm: regular rhythm Heart sounds: no murmurs and normal S1 and S2 GI Palpation (GI): Soft to palpation, nontender, no hepatomegaly and no splenomegaly Auscultation: normal bowel sounds Skin General skin exam: no rashes or lesions noted and dry skin Neuro General: oriented to person, oriented to place and oriented to time Cranial nerves: Yes Equal, round and reactive pupils present Speech: No Abnormal speech present Gait exam (Neuro): Normal gait present Motor exam (neuro): no tremor noted Extrem Right upper extremity: full ROM Left upper extremity: full ROM Right lower extremity: full ROM; no edema Left lower extremity: full ROM; no edema Psych Mental Status: mental status grossly normal Speech and movement: Normal speech and movement present Affect: normal affect Attitude: cooperative Thought process: Normal thought process present Results Reviewed Results Reviewed: Laboratory Tests 04/25/25 04/25/25 11:58 12:04 WBC 6.0 RBC 4.72 Hgb 14.4 Hct 42.5 MCV 90.0 MCH 30.5 MCHC 33.9 RDW 12.6 Plt Count 230 Sodium 140 Potassium 4.1 Chloride 107 Carbon Dioxide 26 Anion Gap 11 L BUN 16 Creatinine 0.84 Estim Creat Clear Calc Not Reportable Estimated GFR > 60 Fasting Glucose 89 Calcium 9.4 Total Bilirubin 0.5 AST 49 H ALT 76 H Alkaline Phosphatase 101 Total Protein 7.3 Albumin 4.7 Triglycerides 123 Cholesterol 188 LDL Cholesterol, Calc 120 H HDL Cholesterol 44 TSH 2.09 Urine Color Yellow Urine Appearance Clear Urine pH 6.0 Ur Specific [place] 1.020 Urine Protein Negative Urine Glucose (UA) Negative Urine Ketones Negative Urine Blood Negative Urine Nitrite Negative Ur Leukocyte Esterase Negative Coding Level of Care Code Est Pt Level 4 (63630) Diagnoses Emphysema lung J43.9 Lung cyst J98.4 Anxiety F41.9 Cigarette nicotine dependence with nicotine-induced disorder F17.219 Nicotine product type: cigarettes Substance use status: unspecified nicotine-induced disorder Heart burn R12 Vitamin D deficiency E55.9 Pure hypercholesterolemia E78.00 Hyperlipidemia type: pure hypercholesterolemia Reactive airway disease without complication, unspecified asthma severity, unspecified whether persistent J45.909 Asthma severity: unspecified severity Asthma persistence: unspecified Asthma complication type: uncomplicated Weight gain R63.5 Decreased libido R68.82 Time Spent (min) 37 Assessment & Plan Assessment & Plan (1) Emphysema lung: Code(s): J43.9 - Emphysema, unspecified Category: Medical Plan: CT of the chest was done and noticed a cyst outside of the right mid-lung and sign of emphysema Reports that he was referred to a thoracic for to assess but he will still need a pulmonology referral to evaluate the potential emphysema. The patient was seen by pulmonology. He had a normal pulmonary function tests and a normal immunology testing Patient was diagnosed with reactive lung disease and was started on Spiriva. Reports that he has been doing much better, and only has some shortness of breath and extreme cold weather. Follow up with pulmonology as scheduled (2) Lung cyst: Code(s): J98.4 - Other disorders of lung Category: Medical Plan: Patient was evaluated by thoracic. Patient reports that he was told that he has cysts in both lungs but not concerning and does not need to be biopsied (3) Anxiety: Code(s): F41.9 - Anxiety disorder, unspecified Category: Medical Plan: Continue hydroxyzine 25 mg b.i.d. p.r.n. Denies HI/SI Patient reports that he was called by a therapist but was unable to make an appointment Reports that a therapist asked him for a credit card over the phone and he did not feel comfortable Patient reports that the therapist wanted to do telehealth and he would rather see someone in person The patient reports that this time he has had a bit of placed. 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 So, he would rather hold off for now with any new referrals. (4) Nicotine dependence: Code(s): F17.200 - Nicotine dependence, unspecified, uncomplicated Category: Medical Qualifiers: Nicotine product type: cigarettes Substance use status: unspecified nicotine-induced disorder Qualified Code(s): F17.219 - Nicotine dependence, cigarettes, with unspecified nicotine-induced disorders Plan: Reports that he was given nicotine gum and this has been helping him. He does not want to started smoking again due to the issues with his lungs. Reports that the nicotine gum is only 2 mg, he was wondering if he will get the 4 mg because he used to smoke a lot of cigarettes, along with vaping and smoking marijuana. Nicotine gum 4 mg was ordered and the patient reports positive effects (5) Heart burn: Code(s): R12 - Heartburn Category: Medical Plan: Reports heartburn with certain foods and also if he lies down too soon after eating. He also noticed that this has been the cause of his chest pains. He was started on omeprazole 20 mg daily. The patient reports that he could tell the difference when he forgets to take the medication. Reinforced dietary restrictions. (6) Vitamin D deficiency: Code(s): E55.9 - Vitamin D deficiency, unspecified Category: Medical Plan: Cholecalciferol 25 mcg daily (7) HLD (hyperlipidemia): Code(s): E78.5 - Hyperlipidemia, unspecified Category: Medical Qualifiers: Hyperlipidemia type: pure hypercholesterolemia Qualified Code(s): E78.00 - Pure hypercholesterolemia, unspecified Plan: LDL decreased from 178 to116, but now has increased to 120 mg/dl Reinforced a diet low in cholesterol Continues Atorvastatin 10 mg p.o. at bedtime; hesitant to increased statin due to mild elevation in liver enzymes since starting the atorvastatin, will continue to monitor for now recheck in 3 months (8) Reactive airway disease: Code(s): J45.909 - Unspecified asthma, uncomplicated Category: Medical Qualifiers: Asthma severity: unspecified severity Asthma persistence: unspecified Asthma complication type: uncomplicated Qualified Code(s): J45.909 - Unspecified asthma, uncomplicated Plan: Patient had his pulmonary function test that was essentially normal. His immunologic workup also has been essentially unrevealing. It was started on Spiriva 2 puffs daily with positive effects. Reports that he has not had to use his rescue inhaler in a long time Follow up with pulmonology as scheduled (9) Weight gain: Code(s): R63.5 - Abnormal weight gain Category: Medical Plan: The patient reports ongoing weight gain, which is contributing to his increased cholesterol levels. He was counseled that his weight gain also likely contributes to his decreased libido by lowering testosterone levels. He was advised to increase his physical activity through methods such as walking, jogging, or joining a gym, and to be mindful of his dietary choices. An ideal weight for him would be between 195 and 200 pounds. (10) Decreased libido: Code(s): R68.82 - Decreased libido Category: Medical Plan: The patient expressed concern about a decreased sex drive. He was informed that this could be related to his weight gain, as excess weight can lower testosterone levels. The recommendation is to focus on weight loss through diet and exercise, which should help improve his libido. Will testosterone levels to follow up labs. Plan Follow up in 3 months Orders: Orders Hepatitis A,B,C Profile 3 Months E55.9 - Vitamin D deficiency, unspecified, E78.00 - Pure hypercholesterolemia, unspecified, F17.219 - Nicotine dependence, cigarettes, with unspecified nicotine-induced disorders, F41.9 - Anxiety disorder, unspecified, J43.9 - Emphysema, unspecified, R07.9 - Chest pain, unspecified, R74.8 - Abnormal levels of other serum enzymes Testosterone, Free/Total 3 Months R53.83 - Other fatigue, R68.82 - Decreased libido Complete Blood Count Auto Diff 3 Months E55.9 - Vitamin D deficiency, unspecified, E78.00 - Pure hypercholesterolemia, unspecified, F17.219 - Nicotine dependence, cigarettes, with unspecified nicotine-induced disorders, F41.9 - Anxiety disorder, unspecified, J43.9 - Emphysema, unspecified, R07.9 - Chest pain, unspecified, R74.8 - Abnormal levels of other serum enzymes Comprehensive Esko. Panel Fast 3 Months E55.9 - Vitamin D deficiency, unspecified, E78.00 - Pure hypercholesterolemia, unspecified, F17.219 - Nicotine dependence, cigarettes, with unspecified nicotine-induced disorders, F41.9 - Anxiety disorder, unspecified, J43.9 - Emphysema, unspecified, R07.9 - Chest pain, unspecified, R74.8 - Abnormal levels of other serum enzymes Lipid Panel 3 Months E55.9 - Vitamin D deficiency, unspecified, E78.00 - Pure hypercholesterolemia, unspecified, F17.219 - Nicotine dependence, cigarettes, with unspecified nicotine-induced disorders, F41.9 - Anxiety disorder, unspecified, J43.9 - Emphysema, unspecified, R07.9 - Chest pain, unspecified, R74.8 - Abnormal levels of other serum enzymes TSH reflex Free T4 3 Months E55.9 - Vitamin D deficiency, unspecified, E78.00 - Pure hypercholesterolemia, unspecified, F17.219 - Nicotine dependence, cigarettes, with unspecified nicotine-induced disorders, F41.9 - Anxiety disorder, unspecified, J43.9 - Emphysema, unspecified, R07.9 - Chest pain, unspecified, R74.8 - Abnormal levels of other serum enzymes UA CC w/rflx Micro + Cult 3 Months E55.9 - Vitamin D deficiency, unspecified, E78.00 - Pure hypercholesterolemia, unspecified, F17.219 - Nicotine dependence, cigarettes, with unspecified nicotine-induced disorders, F41.9 - Anxiety disorder, unspecified, J43.9 - Emphysema, unspecified, R07.9 - Chest pain, unspecified, R74.8 - Abnormal levels of other serum enzymes Vitamin D 25-OH Total 3 Months E55.9 - Vitamin D deficiency, unspecified, E78.00 - Pure hypercholesterolemia, unspecified, F17.219 - Nicotine dependence, cigarettes, with unspecified nicotine-induced disorders, F41.9 - Anxiety disorder, unspecified, J43.9 - Emphysema, unspecified, R07.9 - Chest pain, unspecified, R74.8 - Abnormal levels of other serum enzymes Ferritin 3 Months E55.9 - Vitamin D deficiency, unspecified, E78.00 - Pure hypercholesterolemia, unspecified, F17.219 - Nicotine dependence, cigarettes, with unspecified nicotine-induced disorders, F41.9 - Anxiety disorder, unspecified, J43.9 - Emphysema, unspecified, R07.9 - Chest pain, unspecified, R74.8 - Abnormal levels of other serum enzymes Hemoglobin A1c 3 Months E55.9 - Vitamin D deficiency, unspecified, E78.00 - Pure hypercholesterolemia, unspecified, F17.219 - Nicotine dependence, cigarettes, with unspecified nicotine-induced disorders, F41.9 - Anxiety disorder, unspecified, J43.9 - Emphysema, unspecified, R07.9 - Chest pain, unspecified, R74.8 - Abnormal levels of other serum enzymes
[2025-04-28 10:10] VITALS: BP 130/86; PULSE 79; O2SAT 97; BMI 32.8
== END 2025-04-28 10:56 | disposition home or self-care (01) ==
LOC: HO.HMCH 09:59
DX: J43.9 Emphysema, unspecified (principal); J98.4 Other disorders of lung; F41.9 Anxiety disorder, unspecified; F17.219 Nicotine dependence, cigarettes, with unspecified nicotine-induced disorders; R12 Heartburn; E55.9 Vitamin D deficiency, unspecified; E78.00 Pure hypercholesterolemia, unspecified; J45.909 Unspecified asthma, uncomplicated; R63.5 Abnormal weight gain; R68.82 Decreased libido

== ENCOUNTER → 2025-04-28 09:58 | Outpatient (BNVA) | payer OTHER, SELFPAY | DX: J43.9 Emphysema, unspecified (principal); J98.4 Other disorders of lung; F41.9 Anxiety disorder, unspecified; F17.219 Nicotine dependence, cigarettes, with unspecified nicotine-induced disorders; R12 Heartburn; E55.9 Vitamin D deficiency, unspecified; E78.00 Pure hypercholesterolemia, unspecified; J45.909 Unspecified asthma, uncomplicated; R63.5 Abnormal weight gain; R68.82 Decreased libido | CPT/HCPCS: 99212 ==

== ENCOUNTER 2025-05-05 10:38 | Outpatient (AMB) | payer OTHER, SELFPAY ==
[2025-05-05 10:45] VITALS: BP 154/87; PULSE 93; O2SAT 97; BMI 32.8
--- NOTE | 2025-05-05 10:45 | A.OFFVIS_ITS ---
Vital Signs 05/05/25 10:45 Height 5 ft 11 in Weight 235 lb BMI 32.8 BP 154/87 H Blood Pressure Location Rt brachial Position Sitting Pulse 93 Pulse Source Pulse Oximeter Pulse Oximetry (%) 97 Oxygen Delivery Method Room Air Intake Visit Reasons: Emphysema Allergies No Known Allergies Allergy (Verified 05/05/25 10:51) HPI HPI Emphysema: Details: 40-year-old gentleman former 20+ pack-year smoker, also vaped nicotine components quit within last few months, referred for evaluation of emphysema and several lung cysts noted on CT scan performed [facility]. Patient states that he also was evaluated by thoracic surgery at [facility] and told that his cysts are not malignant and do not need to be biopsied. Patient does have underlying history of eczema and environmental allergies. He has history of asthma in his mother. Patient does have a dog. 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 Patient had his pulmonary function test that was essentially normal. His immunologic workup also has been essentially unrevealing. He continues to use Spiriva and only rarely albuterol MDI with good control of his symptoms. [facility] Medical History Eczema Asthma Seizure Herpes simplex type 1 infection Nicotine dependence HLD (hyperlipidemia) Surgical History History of wisdom tooth extraction History of tonsillectomy History of foot surgery Family History Father HTN (hypertension) Eczema Mother Asthma Other Mental health disorder Substance use disorder Social History Housing: Condominium Alcohol intake: current Alcohol intake frequency: a few times a month Patient Tobacco Use Status: Former Tobacco user Tobacco use type: Cigarette Years Smoked: started age 15, 1PPD, quit 2015 e-Cigarette/Vaping Use: Former Use Second Hand Smoke Exposure: Yes service: No Current occupational status: employed Current occupation: [employer] Cognitive needs: No Hearing needs: No Vision needs: Yes (Glasses) Review of Systems Const Denies daytime sleepiness, Denies excessive sweating, Denies fatigue, Denies fever(s), Denies lethargy, Denies malaise, Denies night sweats, Denies snoring and Denies weight loss Eyes Denies blurry vision and Denies itchy eyes ENT Denies nasal congestion, Denies post nasal drip, Denies sinus pain, Denies sinus pressure and Denies other ( Thrush) Card Denies chest pain, Denies pedal edema, Denies dyspnea, Denies orthopnea and Denies paroxysmal nocturnal dyspnea Resp Denies cough, Denies hemoptysis, Denies excessive phlegm production, Denies dyspnea, Denies snoring and Denies wheezing GI Denies abdominal pain and Denies heartburn Musc Denies myalgias, Denies arthralgias and Denies joint swelling Skin/Breast Denies rash Neuro Denies memory loss and Denies seizure-like activity Psych Denies abnormal sleep pattern, Denies anxiety and Denies memory loss Endo Denies excessive sweating, Denies fatigue and Denies heat intolerance Ollie/Lymph Denies easy bruising Aller/Immun Denies itchy eyes, Denies seasonal rhinorrhea and Denies wheezing Physical Exam Vital Signs: Last Vital Signs Pulse 93 05/05/25 10:45 BP 154/87 H 05/05/25 10:45 Pulse Ox 97 05/05/25 10:45 Oxygen Delivery Method Room Air 05/05/25 10:45 BMI result Body Mass Index 32.8 Const General: no acute distress and alert Nutritional Appearance: not obese Orientation/consciousness: Other orientation findings ( oriented) HEENT Head: Yes atraumatic Eyes General: appearance normal, both eyes and all related structures Sclerae: sclerae normal EOM: EOMs intact bilaterally Neck Neck: Yes supple Lymphatic: no lymphadenopathy noted Resp Effort & Inspection: normal respiratory effort and no use of accessory muscles Auscultation: clear to auscultation bilaterally Cardio Rate: regular rate Rhythm: regular rhythm Heart sounds: no gallops, no murmurs and no rubs Skin General skin exam: other ( warm) Extrem General: No clubbing, No cyanosis and No edema Assessment & Plan Assessment & Plan (1) Emphysema lung: Code(s): J43.9 - Emphysema, unspecified Category: Medical Plan: Well controlled on current regimen of Spiriva and albuterol MDI. Continue current regimen. Coding Level of Care Code Est Pt Level 3 (59332) Diagnoses Emphysema lung J43.9
--- OUTSIDE RECORDS SUMMARY | 2025-05-05 13:32 | XMS_ITS | Patient Health Record ---
[facility] Address [address] [place] [address] Care Team Providers Care Risk Analyst Name Role Phone Trey Shane MD Primary Care Provider Barbara Ramos Unavailable [phone] Allergies Allergen (clinical drug ingredient) Drug/Non Drug [...] Note-Appointment . . . [facility] Duration: . 01/27/2015 Active ZyrTE Active Problems No Known Problems Plan Of Treatment Pending Test Test Name Order Date [id number] NAIL, 1-5 01/27/2015 Insurance Providers Payer Name Payer Address Payer Phone Subscriber Number Group Number Insured Name Patient Relationship to Insured Coverage Start Date Coverage End Date [facility] [address] [place] [address] [phone] [id number] Aguilar Beck i Self - patient is the insured Medical (General) History Medical History History ICD Code broken bones psoriasis/eczema chicken pox Surgical History Surgery Date(Month/Year) tonsillectomy 2006 wisdom teeth extraction
--- OUTSIDE RECORDS SUMMARY | 2025-05-05 13:32 | XMS_ITS | Clinical Summary ---
Author Organization [facility] Address [address] [place] [address] Phone Care Team Providers Care Local City Driver Name Role Phone Physician, Pcp Unknown Primary [...] understand. He is going to see a risk mgr and tells me that he has stopped [...] sober since February 2016. 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 Testing was negative for underlying seizure disorder Tobacco use 08/05/2018 DX:Tobacco use Hyperlipidemia LDL goal <160 DX: Hyperlipidemia LDL goal <160 Abdominal pain DX:Abdominal dilia n Constipation DX:Constipation Straining with stools DX:Straini ng with stools GERD (gastroesophageal reflux disease) Seizures ([facility] V24, [facility] V28) 07/12/2024 Asbestos exposure 07/12/2024 Lung disease due to breathin g vapors or fumes ([facility] V24, [facility] V28) 07/12/2024 diesel fumes Family History Medical [...] Date Smoking Tobacco: Every Day Cigarettes 0.8 26 Started: 05/19/1999 Smokeless Tobacco: Never Alcohol Use Standard Drinks/Week Comments No 0 (1 standard drink = 0.6 oz pur e alcohol) Sex and Gender Information Value Date Recorded Sex Assigned at Male 06/28/2024 3:40 PM EST Legal Sex Male 3:18 AM EST Gender Identity Male 06/28/2024 3:40 PM EST Sexual Orientation Straight 06/28/2024 3: 40 PM EST Last Filed Vital Signs Vital Sign Reading [...] 3 - 19+ 3-dose series) 11/07/2011 10/10/2011 HPV Vaccines (1 - 3-dose SCD M series) 02/21/2012 Social Influencers of Health Screening 04/21/2022 Depression Screening 05/19/2024 COVID-19 Vaccine (1 - 2024-2 6 season) 2025 Influenza Vaccine (#1) 2025 DTaP,Tdap,and Td Vaccines (2 - Td or Tdap) 10/22/2025 10/23/2015 Cholesterol Screening (Lipid Panel) 09/21/2027 09/20/2022 RSV Immunization Adult Patie nts (1 - 1-dose 75+ series) 02/21/2060 HIV Screening Completed 09/20/2022 Hepatitis C Screening [...] * HIV Screening (09/20/2022) HIV Screening abstracted [facility] Provider MD HEALTH MAINTENANCE Final Result * Hepatitis C Screening (09/20/2022) Pathologist [facility] Hepatitis C Screening abstracted [facility] Provider HEALTH MAINTENANCE Final Result * (ABNORMAL) Lipid panel (09/20/2022) LDL/HDL Ratio 4 0 - 4 Triglycerides 95 0 - 150 mg/dL Cholesterol 248(A) 0 - 200 mg/dL HDL 57 >=40 mg/dL LDL Cholesterol 172(A) 0 - 100 mg/dL Blood Venous blood specimen / Unknown [facility] Provider LAB BLOOD ORDERABLES Chiquita l Result from Last 3 Months or Most Recently Relevant to Health Maintenance Insurance [facility]) Care Teams Local City Driver Relationship Specialty Start Date End Date Physician, Pcp Unknown PCP - General 06/28/24
--- OUTSIDE RECORDS SUMMARY | 2025-05-05 13:32 | XMS_ITS | Patient Health Record ---
Author Organization [facility] Address [address] [place] [address] Care Team Providers Care Interlibrary Loan Services Librarian Name Role Phone Jeff Salcedo MD Primary Care Provider Donovan moser Reason For Referral No Information Medications Medication SIG (Take, Route, Frequency, Duration) Notes Start Date End Date Status MimyX - 1 isaias applied topica lly prn; Duration: 14 day(s) Active Cloderm 0.1% 1 isaias applied topica lly prn; Duration: 14 day(s) Active ZyrTEC 10 mg 1 tab(s) orally once a day; Duration: 30 day(s) Active Olux 0.05% 1 isaias applied topica lly prn; Duration: 14 day(s) Active Plan Of Treatment No Information Insurance Providers Payer Name Payer Address Payer Phone Subscriber Number Group Number Insured Name Patient Relationship to Insured Coverage Start Date Coverage End Date [facility] [address] [place] [address] [id number] Aguilar Beck i Self - patient is the insured Medical (General) History Medical History History ICD Code dermatitis Surgical History Surgery Date(Month/Year) tonsillectomy wisdom tooth extraction
== END 2025-05-05 11:20 | disposition home or self-care (01) ==
LOC: HO.HPS 10:39
PROVIDERS: Visit Provider Internal Medicine Pulmonary Disease
DX: J43.9 Emphysema, unspecified (principal)
CPT/HCPCS: 99213

== ENCOUNTER → 2025-05-05 10:38 | Outpatient (BNVA) | payer OTHER, SELFPAY | PROVIDERS: Visit Provider Internal Medicine Pulmonary Disease | DX: J43.9 Emphysema, unspecified (principal); F17.210 Nicotine dependence, cigarettes, uncomplicated | CPT/HCPCS: 99212 ==